=== PATIENT | male | born 1955 | race Caucasian/White ===

== ENCOUNTER → 2023-12-02 07:52 | Outpatient (REF) | payer OTHER, SELFPAY | LOC: RCS 07:52 | PROVIDERS: ATTENDING PHYSICIAN Nuclear Medicine Nuclear Cardiology; FAMILY PHYSICIAN Family Medicine | DX: R94.31 Abnormal electrocardiogram [ECG] [EKG] (principal); R07.9 Chest pain, unspecified; R06.02 Shortness of breath; R42 Dizziness and giddiness; Z82.49 Family history of ischemic heart disease and other diseases of the circulatory system; E78.5 Hyperlipidemia, unspecified | CPT/HCPCS: 93306 ==

== ENCOUNTER 2024-09-06 22:59 | Inpatient (IN) | payer OTHER, SELFPAY ==
[2024-09-06 15:28] VITALS: BP 188/101
--- NOTE | 2024-09-06 15:32 | ED.GENMED ---
ED Provider Triage
<Kaushal Bautista PA-C - Last Filed: 09/06/24 15:34>
-
Patient seen by provider in Triage?: Seen in Triage
Attestation: A medical screening examination has been initiated by a qualified medical provider. Based on the assessment performed at this time, it has been determined that an emergent medical condition may exist and the patient has been informed
that further medical evaluation and possible additional diagnostic testing may be needed.
HPI: 69-year-old male presenting to the emergency department for evaluation of elevated blood pressure, lower abdominal discomfort and lightheadedness that has been ongoing for the last 1 to 2 weeks, acutely worse over the last few days.
brought patient to the ER for further evaluation today. Patient does admit to some medication noncompliance because he said his antihypertensive regimen seem to drop his blood pressure a little too low and would get symptomatic from this.
Patient's blood pressure in triage 188/101. Brought back for stat EKG. Abdominal labs and troponin ordered for further evaluation.
GENERAL: Alert , in no apparent distress
EYE: No visual abnormalities.
NECK: Trachea midline
ENT: No visible abnormalities.
LUNGS: No acute respiratory distress
NEUROLOGICAL: Alert and oriented
SKIN: Skin intact. No visible changes.
MUSCULOSKELETAL: Moving extremities normally
PSYCH: Normal and appropriate interaction.
This is a medical evaluation conducted in person to initiate diagnostic evaluation and provide initial therapeutics. Please see further documentation by the treating clinician.
History of Present Illness
<Kaushal Bautista PA-C - Last Filed: 09/06/24 15:34>
General
Chief Complaint: Blood Pressure Problem
Time Seen by Provider: 09/06/24 18:43
<Marie Gonzalez MD, Resident - Last Filed: 09/06/24 20:18>
History of Present Illness
History of Present Illness:
69 y/o male with past medical history of hypertension, and BPH presenting with elevated blood pressures (in the 190s), lightheadedness and dizziness upon standing. Pt also complains of mid lower abdominal pain. Has difficulty urinating but notes
improved urinary flow with alfuzosin. Also notes decreased bowel movements in the past few days. Denies fever, chills, chest pain, nausea/vomiting. Pt has not been compliant with his antihypertensive medication, restarted taking his medication about
3 weeks ago after he noticed his high blood pressures at home.
Last colonoscopy 2021 showed polyps which were biopsied. Pathology revealed tubular adenoma.
Past History
<Kaushal Bautista PA-C - Last Filed: 09/06/24 15:34>
Past History
ED Past Medical History: HTN
ED Past Surgical History: None
Social History
Tobacco: Former smoker
<Marie Gonzalez MD, Resident - Last Filed: 09/06/24 20:18>
Past History
ED Past Medical History: Other (pancreatic mass on MRI abdomen, umbilical hernia)
Social History
Tobacco: Non-smoker
Review of Systems
<Marie Gonzalez MD, Resident - Last Filed: 09/06/24 20:18>
Review of Systems
EENT: Reports no symptoms
Respiratory: Reports no symptoms
Cardiac: Reports no symptoms
ABD/GI: Reports abdominal pain
: Reports difficulty voiding
Musculoskeletal: Reports no symptoms
Skin: Reports no symptoms
Neurological: Reports dizzy
Endocrine: Reports no symptoms
Hematologic/Lymphatic: Reports no symptoms
Psychiatric: Reports no symptoms
Phy Exam
<Marie Gonzalez MD, Resident - Last Filed: 09/06/24 20:18>
Physical Exam
Physical Exam:
GENERAL: Alert, in no apparent distress
EYE: pupils equal and reactive
NECK: Supple, no significant adenopathy.
ENT: o/p clr, mmm.
CARDIAC: Regular rate and rhythm.
LUNGS: Clear breath sounds bilaterally, no acute respiratory distress, no wheezes/rales/rhonchi
ABDOMEN: Soft, mid lower abdominal tenderness, no r/g, no cvat
NEUROLOGICAL: no focal neuro deficits
SKIN: Warm and dry, skin intact.
MUSCULOSKELETAL: No edema, well perfused.
PSYCH: Normal and appropriate interaction.
Course
<Kaushal Bautista PA-C - Last Filed: 09/06/24 15:34>
Orders/Labs/Results
Orders:
Orders
09/06/24 15:31
Electrocardiogram (*1) Urgent
Reason for Study: Abdominal Pain
EKG- Treatment ONCE
09/06/24 15:42
Complete Blood Count/With Diff Urgent
Comprehensive Metabolic Panel Urgent
Troponin I Urgent
09/06/24 19:50
CR Chest - 2 Views Urgent
Comment:
Reason For Exam: arf
09/06/24 19:51
CT Abd/pel Without Iv Or Oral Urgent
Comment:
Reason For Exam: arf
Bladder Scan- Treatment ONCE
09/06/24 20:23
Gee Placement- Treatment ONCE
Reason for insertion: Acute Retention
09/06/24 22:25
Lidocaine 2% [Lidocaine Uro-Jet 2%] 1 syringe TOPICAL NOW STA
Gee Catheter [Catheter- Indwelling] As Directed
Reason for insertion: Acute Retention
Type: 3 way
Discontinue Date/Time: 09/09/24 0600
09/06/24 22:45
Admit/Transfer Patient As Directed
Co-Sign Provider:
Level of Care: Inpatient admission
Assign to:: Telemetry
Physician / Group: Surya
Diagnosis: Urinary Retention, GISELL
Reason for Telemetry: Arrhythmia
Date to Stop Telemetry: 09/09/24
Time to Stop Telemetry: 11:00
Reason for Hospitalization: Urinary Retention, GISELL
Expected length of stay greater than two midnights?: Yes
ELOS- Estimated Length of Stay in days: 3
I certify the patient meets the requirements for IP care: Yes
PRN Pain Medication Management As Directed
May give lesser potent ordered pain med per pt: Yes
preference::
Protocol:: Medication orders for pain may be administered in a
manner that supports deferring to patient preference
when the pt is:
- Requesting an ordered lesser potent pain medication.
Least to most potent pain medications are defined
as: acetaminophen < NSAID < tramadol < opioids
(morphine, oxycodone, hydromorphone).
- Requesting a lesser dose of the same medication IF
ORDERED.
- Requesting a less intrusive route of administration
if both routes are prescribed by the provider (PO <
IV).
09/06/24 22:46
Code Status As Directed
Resuscitation Status: Full Code
09/07/24 00:37
HYDROmorphone [Dilaudid] 0.5 mg IV Q4HPRN PRN
09/07/24 01:11
Acetaminophen [Tylenol] 650 mg PO Q4HPRN PRN
Lactated Ringers [Lr] 1,000 ml IV 100 mls/hr
Ondansetron Injectable [Zofran] 4 mg IV Q6HPRN PRN
09/07/24 01:11
UROLOGY CONSULT Routine
Consulting Provider: Vasquez Toro Jr.
Was physician already notified: Yes
Comment: Urinary Retention / BPH
Activity As Directed
Activity Level: Ambulate
I/O [Intake/ Output] As Directed
Frequency: Per unit guidelines
Pneumatic Compression Sleeves As Directed
Type: Knee high
Vital Signs As Directed
Frequency: Per unit guidelines
Oxygen Therapy [O2 Therapy] [RESP] Routine
Titrate/Wean O2 to maintain O2 sat greater than (%): 94
DX Deep Vein Thrombosis Video Routine
09/07/24 02:03
Urinalysis Reflex To Culture Urgent
Date Specimen was Collected: 09/07/24
Time Specimen was Collected: 02:02
09/07/24 Breakfast
Regular
At Your Request: Full Participation
09/07/24 06:55
Basic Metabolic Panel IN AM
Complete Blood Count/No Diff IN AM
09/07/24 08:00
Amlodipine [Norvasc] 5 mg PO DAILY
Tamsulosin [Flomax] 0.4 mg PO BID
09/09/24 11:00
DC Protocol for Telemetry ONCE
Abnormal Lab Results
09/06/24
15:42
MPV 11.6 H fL
(7.4-10.4)
BUN 32 H mg/dl
(9-20)
Creatinine 2.0 H mg/dL
(0.7-1.3)
Glucose 117 H mg/dl
(70-99)
Albumin 5.1 H g/dl
(3.5-5.0)
09/06/24 15:42
09/06/24 15:42
Vital Signs
Initial and Last Documented VS:
Initial Vital Signs
Temp Pulse Resp BP Pulse Ox
98.1 F 77 18 188/101 99
09/06/24 15:28 09/06/24 15:28 09/06/24 15:28 09/06/24 15:28 09/06/24 15:28
Last Documented Vital Signs
Temp Pulse Resp BP Pulse Ox
99.2 F 80 16 169/79 98
09/07/24 08:18 09/07/24 08:18 09/07/24 08:18 09/07/24 08:18 09/07/24 08:18
<Marie Gonzalez MD, Resident - Last Filed: 09/06/24 20:18>
Orders/Labs/Results
Orders:
Orders
09/06/24 15:31
Electrocardiogram (*1) Urgent
Reason for Study: Abdominal Pain
EKG- Treatment ONCE
09/06/24 15:42
Complete Blood Count/With Diff Urgent
Comprehensive Metabolic Panel Urgent
Troponin I Urgent
09/06/24 19:50
CR Chest - 2 Views Urgent
Comment:
Reason For Exam: arf
09/06/24 19:51
CT Abd/pel Without Iv Or Oral Urgent
Comment:
Reason For Exam: arf
Bladder Scan- Treatment ONCE
09/06/24 20:23
Gee Placement- Treatment ONCE
Reason for insertion: Acute Retention
09/06/24 22:25
Lidocaine 2% [Lidocaine Uro-Jet 2%] 1 syringe TOPICAL NOW STA
Gee Catheter [Catheter- Indwelling] As Directed
Reason for insertion: Acute Retention
Type: 3 way
Discontinue Date/Time: 09/09/24 0600
09/06/24 22:45
Admit/Transfer Patient As Directed
Co-Sign Provider:
Level of Care: Inpatient admission
Assign to:: Telemetry
Physician / Group: Surya
Diagnosis: Urinary Retention, GISELL
Reason for Telemetry: Arrhythmia
Date to Stop Telemetry: 09/09/24
Time to Stop Telemetry: 11:00
Reason for Hospitalization: Urinary Retention, GISELL
Expected length of stay greater than two midnights?: Yes
ELOS- Estimated Length of Stay in days: 3
I certify the patient meets the requirements for IP care: Yes
PRN Pain Medication Management As Directed
May give lesser potent ordered pain med per pt: Yes
preference::
Protocol:: Medication orders for pain may be administered in a
manner that supports deferring to patient preference
when the pt is:
- Requesting an ordered lesser potent pain medication.
Least to most potent pain medications are defined
as: acetaminophen < NSAID < tramadol < opioids
(morphine, oxycodone, hydromorphone).
- Requesting a lesser dose of the same medication IF
ORDERED.
- Requesting a less intrusive route of administration
if both routes are prescribed by the provider (PO <
IV).
09/06/24 22:46
Code Status As Directed
Resuscitation Status: Full Code
09/07/24 00:37
HYDROmorphone [Dilaudid] 0.5 mg IV Q4HPRN PRN
09/07/24 01:11
Acetaminophen [Tylenol] 650 mg PO Q4HPRN PRN
Lactated Ringers [Lr] 1,000 ml IV 100 mls/hr
Ondansetron Injectable [Zofran] 4 mg IV Q6HPRN PRN
09/07/24 01:11
UROLOGY CONSULT Routine
Consulting Provider: Vasquez Toro Jr.
Was physician already notified: Yes
Comment: Urinary Retention / BPH
Activity As Directed
Activity Level: Ambulate
I/O [Intake/ Output] As Directed
Frequency: Per unit guidelines
Pneumatic Compression Sleeves As Directed
Type: Knee high
Vital Signs As Directed
Frequency: Per unit guidelines
Oxygen Therapy [O2 Therapy] [RESP] Routine
Titrate/Wean O2 to maintain O2 sat greater than (%): 94
DX Deep Vein Thrombosis Video Routine
09/07/24 02:03
Urinalysis Reflex To Culture Urgent
Date Specimen was Collected: 09/07/24
Time Specimen was Collected: 02:02
09/07/24 Breakfast
Regular
At Your Request: Full Participation
09/07/24 06:55
Basic Metabolic Panel IN AM
Complete Blood Count/No Diff IN AM
09/07/24 08:00
Amlodipine [Norvasc] 5 mg PO DAILY
Tamsulosin [Flomax] 0.4 mg PO BID
09/09/24 11:00
DC Protocol for Telemetry ONCE
Abnormal Lab Results
09/06/24
15:42
MPV 11.6 H fL
(7.4-10.4)
BUN 32 H mg/dl
(9-20)
Creatinine 2.0 H mg/dL
(0.7-1.3)
Glucose 117 H mg/dl
(70-99)
Albumin 5.1 H g/dl
(3.5-5.0)
09/06/24 15:42
09/06/24 15:42
Vital Signs
Initial and Last Documented VS:
Initial Vital Signs
Temp Pulse Resp BP Pulse Ox
98.1 F 77 18 188/101 99
09/06/24 15:28 09/06/24 15:28 09/06/24 15:28 09/06/24 15:28 09/06/24 15:28
Last Documented Vital Signs
Temp Pulse Resp BP Pulse Ox
99.2 F 80 16 169/79 98
09/07/24 08:18 09/07/24 08:18 09/07/24 08:18 09/07/24 08:18 09/07/24 08:18
<Anam Key, DO - Last Filed: 09/07/24 15:11>
Orders/Labs/Results
Orders:
Orders
09/06/24 15:31
Electrocardiogram (*1) Urgent
Reason for Study: Abdominal Pain
EKG- Treatment ONCE
09/06/24 15:42
Complete Blood Count/With Diff Urgent
Comprehensive Metabolic Panel Urgent
Troponin I Urgent
09/06/24 19:50
CR Chest - 2 Views Urgent
Comment:
Reason For Exam: arf
09/06/24 19:51
CT Abd/pel Without Iv Or Oral Urgent
Comment:
Reason For Exam: arf
Bladder Scan- Treatment ONCE
09/06/24 20:23
Gee Placement- Treatment ONCE
Reason for insertion: Acute Retention
09/06/24 22:25
Lidocaine 2% [Lidocaine Uro-Jet 2%] 1 syringe TOPICAL NOW STA
Gee Catheter [Catheter- Indwelling] As Directed
Reason for insertion: Acute Retention
Type: 3 way
Discontinue Date/Time: 09/09/24 0600
09/06/24 22:45
Admit/Transfer Patient As Directed
Co-Sign Provider:
Level of Care: Inpatient admission
Assign to:: Telemetry
Physician / Group: Surya
Diagnosis: Urinary Retention, GISLEL
Reason for Telemetry: Arrhythmia
Date to Stop Telemetry: 09/09/24
Time to Stop Telemetry: 11:00
Reason for Hospitalization: Urinary Retention, GISELL
Expected length of stay greater than two midnights?: Yes
ELOS- Estimated Length of Stay in days: 3
I certify the patient meets the requirements for IP care: Yes
PRN Pain Medication Management As Directed
May give lesser potent ordered pain med per pt: Yes
preference::
Protocol:: Medication orders for pain may be administered in a
manner that supports deferring to patient preference
when the pt is:
- Requesting an ordered lesser potent pain medication.
Least to most potent pain medications are defined
as: acetaminophen < NSAID < tramadol < opioids
(morphine, oxycodone, hydromorphone).
- Requesting a lesser dose of the same medication IF
ORDERED.
- Requesting a less intrusive route of administration
if both routes are prescribed by the provider (PO <
IV).
09/06/24 22:46
Code Status As Directed
Resuscitation Status: Full Code
09/07/24 00:37
HYDROmorphone [Dilaudid] 0.5 mg IV Q4HPRN PRN
09/07/24 01:11
Acetaminophen [Tylenol] 650 mg PO Q4HPRN PRN
Lactated Ringers [Lr] 1,000 ml IV 100 mls/hr
Ondansetron Injectable [Zofran] 4 mg IV Q6HPRN PRN
09/07/24 01:11
UROLOGY CONSULT Routine
Consulting Provider: Vasquez Toro Jr.
Was physician already notified: Yes
Comment: Urinary Retention / BPH
Activity As Directed
Activity Level: Ambulate
I/O [Intake/ Output] As Directed
Frequency: Per unit guidelines
Pneumatic Compression Sleeves As Directed
Type: Knee high
Vital Signs As Directed
Frequency: Per unit guidelines
Oxygen Therapy [O2 Therapy] [RESP] Routine
Titrate/Wean O2 to maintain O2 sat greater than (%): 94
DX Deep Vein Thrombosis Video Routine
09/07/24 02:03
Urinalysis Reflex To Culture Urgent
Date Specimen was Collected: 09/07/24
Time Specimen was Collected: 02:02
09/07/24 Breakfast
Regular
At Your Request: Full Participation
09/07/24 06:55
Basic Metabolic Panel IN AM
Complete Blood Count/No Diff IN AM
09/07/24 08:00
Amlodipine [Norvasc] 5 mg PO DAILY
Tamsulosin [Flomax] 0.4 mg PO BID
09/09/24 11:00
DC Protocol for Telemetry ONCE
Abnormal Lab Results
09/06/24
15:42
MPV 11.6 H fL
(7.4-10.4)
BUN 32 H mg/dl
(9-20)
Creatinine 2.0 H mg/dL
(0.7-1.3)
Glucose 117 H mg/dl
(70-99)
Albumin 5.1 H g/dl
(3.5-5.0)
09/06/24 15:42
09/06/24 15:42
Vital Signs
Initial and Last Documented VS:
Initial Vital Signs
Temp Pulse Resp BP Pulse Ox
98.1 F 77 18 188/101 99
09/06/24 15:28 09/06/24 15:28 09/06/24 15:28 09/06/24 15:28 09/06/24 15:28
Last Documented Vital Signs
Temp Pulse Resp BP Pulse Ox
99.2 F 80 16 169/79 98
09/07/24 08:18 09/07/24 08:18 09/07/24 08:18 09/07/24 08:18 09/07/24 08:18
<Marie Gonzalez MD, Resident - Last Filed: 09/06/24 20:18>
MDM/Problems Addressed
Differential Diagnosis Includes:
Urinary retention, bladder outlet obstruction
Nephrolithiasis
NM
Bowel obstruction
Hypertensive urgency
MDM/Problems Addressed:
69 y/o m with past medical history of HTN and BPH presenting with elevated blood pressures and abdominal pain.
# Lower abdominal pain
- Urinary distension on physical exam
- Cr elevated (2.0), unknown whether acute or chronic
- EKG shows ST changes in anterolateral leads, no symptoms
- Troponin x1 negative
- Chest x-ray
- Bladder scan
- Abdomen pelvis CT scan
# Hypertension
- Likely multifactorial in the setting of pain, noncompliance, obstructive nephropathy
- Wait for bladder scan
Chronic conditions affecting care:
Hypertension
<Marie Gonzalez MD, Resident - Last Filed: 09/06/24 20:18>
*Critical Care Note
Total Time (30-74mins, 75-104mins- exclusive of procedures): Not Applicable
<Anam Key DO - Last Filed: 09/07/24 15:11>
Update Note
Update Note:
Bladder Scan---800, voided--[address]
ED Attending Note
<Kaushal Bautista PA-C - Last Filed: 09/06/24 15:34>
-
Portions of this chart may have been created with voice recognition software.� Occasional wrong word or��sound alike� substitutions may have occurred due to the inherent limitations of voice recognition software.
<Anam Key, - Last Filed: 09/07/24 15:11>
ED Attending Note
Patient seen and examined by attending physician: Yes
I performed a history and physical exam of patient and discussed management with resident, I reviewed resident's note and agree with documented findings and plan of care.: Yes
ED Attending Note:
Seen with resident examined independent 69-year-old male history of hypertension over the summer was not feeling well took himself off his meds, restarted few months ago, now has trouble urinating urinary frequency cannot empty his bladder abdominal
cramping, bladder scan noted Gee placed labs are noted EKG is noted troponin noted CT scan is pending
Discharge Plan
Departure
Patient Disposition: Admit
Date of Disposition: 09/06/24
Time of Disposition: 21:46
Admit to: Med/Surg
Presentation/result/management discussed w/ accepting MD/DO: Hospitalist
Patient with high blood pressure during this ER visit?: Yes
Condition: Fair
Discharge Problem:
Acute renal failure (ARF)
Interventions
Interventions:
*Risk Screen - Suicide Last Done: 09/06/24 15:28
*General Assessment Last Done: 09/06/24 15:28
ED- Fall Risk Assessment Last Done: 09/07/24 00:58
*ED COVID-19 Vaccine History Last Done: 09/06/24 15:28
*Nursing Disposition Last Done: 09/07/24 00:58
Discharge Date and Time
Discharge Date/Time: 09/07/24 01:06
[2024-09-06 15:57] LABS: % Basophils 0.7 % (0-2); % Eosinophils 1.6 % (0-6); % Immature Granulocytes 0.1 % (0-0.5); % Lymphocytes 25.7 % (20.5-51.1); % Monocytes 7.6 % (1.7-9.3); % Neutrophils 64.3 % (42.2-75.2); Absolute Basophils 0.1 10^3/uL (0-0.2); Absolute Eosinophils 0.1 10^3/uL (0-0.7); Absolute Lymphocytes 1.8 10^3/uL (1.2-3.4); Absolute Monocytes 0.5 10^3/uL (0.1-0.6); Absolute Neutrophils 4.4 10^3/uL (1.4-6.5); Hematocrit 44.7 % (39.0-52.0); Hemoglobin 14.8 g/dL (13.0-18.0); Mean Corp Hgb Conc. 33.1 g/dL (33.0-37.0); Mean Corpuscular Hgb 30.3 pg (27.0-31.0); Mean Corpuscular Volume 91.4 fL (80.0-94.0); Mean Platelet Volume 11.6 fL (7.4-10.4); Nucleated Red Blood Cells % 0 % (-); Platelet Count 163 10^3/uL (130-400); Red Blood Cell Count 4.89 10^6/uL (4.70-6.10); Red Cell Dist. Width 12.6 % (11.5-14.5); White Blood Cell Count 6.8 10^3/uL (4.8-10.8)
[2024-09-06 16:11] LABS: ALT (SGPT) 27 U/L (0-50); AST (SGOT) 28 U/L (17-59); Albumin 5.1 g/dl (3.5-5.0); Alkaline Phosphatase 83 U/L (38-126); Blood Urea Nitrogen 32 mg/dl (9-20); Calcium 9.7 mg/dl (8.4-10.2); Carbon Dioxide 26 mmol/L (22-30); Chloride 100 mmol/L (98-107); Glucose 117 mg/dl (70-99); Potassium 4.1 mmol/L (3.5-5.1); Sodium 143 mmol/L (135-145); Total Bilirubin 0.8 mg/dl (0.2-1.3); Total Protein 8.2 g/dl (6.3-8.2); eGFR 35.91
[2024-09-06 16:17] LABS: Troponin I < 0.012 ng/ml
[2024-09-06 18:30] VITALS: BP 190/99
[2024-09-06 21:23] VITALS: BP 157/77
[2024-09-06 21:25] VITALS: BP 157/77
[2024-09-06 22:00] VITALS: BP 174/88
--- NOTE | 2024-09-06 22:31 | HPS.HSE ---
Family Physician
-
Family Physician: Tal Encarnacion
Chief Complaint
-
Abd Pain / Hypertension
History of Present Illness
Patient is a 69y M with PMH significant for hypertension and BPH who presents to ED complaining of lower abdominal discomfort, difficulty urinating and high blood pressure. Patient states that he stopped taking his usual meds for BP and BPH over
the summer. He complained of feeling lightheaded and dyspneic with activity on these medications (Afluzosin and Dyazide). He did well for a time but then began to have difficulty with urination. He states that he had to 'push' to urinate and
complained of burning at times with urination. He began taking an OTC 'prostate vitamin' with some improvement in these symptoms.
However, over the past 3 weeks patient has noted worsening lower abdominal discomfort, increased difficulty passing urine and now notes that his BP at home has been elevated - consistently 170-180 systolic.
Patient started taking both Rx medications within the past few weeks - but with no improvement in his BP, pain or urination.
He does note that he has again began to feel lightheaded at times.
Patient denies any fevers / chills. No constipation. he has had intermittent nausea without emesis.
He denies any hematuria or flank pain.
Medical History
Past Medical History
Past Medical History: Reports Other
Additional Past Medical History:
Hypertension
BPH
Past Surgical History: Reports Other
Additional Past Surgical History:
Cutaneous Cyst Excision
Social History
Tobacco: Former Smoker (Quit smoking 25 years ago.)
Alcohol: None
Drug: None
Personal:
Living: With Family
Family History
Family History: Other (Father: Longevity, CAD Mother: Rheumatic Fever / CHF)
Allergies / Home Medications
Allergies reflects when Allergies were last updated in [facility].
Home Medications with original date entered in [facility]
Allergy/Medication List:
Allergies
Allergy/AdvReac Type Severity Reaction Status Date / Time
No Known Allergies Allergy Verified 09/06/24 15:33
Home Medications
alfuzosin 10 mg tablet,extended release 24 hr 10 mg PO NOON 08/20/19
triamterene 37.5 mg-hydrochlorothiazide 25 mg tablet 1 tab PO DAILY 09/06/24
Review of Systems
-
History Source: Patient
A 12 point ROS was completed and negative except as noted: Yes
Constitutional: Denies Fever, Fatigue or Chills
Respiratory: Reports Trouble Breathing (dyspnea with activity at times.); Denies Cough
Cardiac: Denies Chest Pain or Palpitations
Abdomen/GI: Reports Abdominal Pain and Nausea; Denies Vomiting, Diarrhea, Constipated, Bloody Stools or Anorexia
: Reports Dysuria and Difficulty Voiding; Denies Flank Pain, Incontinence or Bleeding
Musculoskeletal: Denies Joint Pain or Edema
Neurological: Reports Dizzy; Denies Headache
Psych: Denies Depression or Anxiety
Physical Exam
Vital Signs
Vital Signs
Temp Pulse Resp BP Pulse Ox
98.0 F 67 16 157/77 97
09/06/24 20:13 09/06/24 22:00 09/06/24 21:15 09/06/24 21:25 09/06/24 22:00
Physical Exam
General: Other (69y M in no acute distress.)
HEENT: Moist mucous membranes and PERRLA
Respiratory: Clear; No Wheezes, Rales or Rhonchi
Cardiac: S1/S2 and Regular Rhythm; No Murmur
GI: Soft, Non Distended and Normal Bowel Sounds
Genito-urinary: Other (Suprapubic tenderness. No CVAT. Benitez in place at present.)
Musculoskeletal: No Clubbing, No Cyanosis and No Edema
Neuro: AO x 3
Laboratory Results
-
09/06/24 15:42
09/06/24 15:42
Laboratory Results
Total Bilirubin 0.8 mg/dl (0.2-1.3) 09/06/24 15:42
AST 28 U/L (17-59) 09/06/24 15:42
ALT 27 U/L (0-50) 09/06/24 15:42
Alkaline Phosphatase 83 U/L (38-126) 09/06/24 15:42
Troponin I < 0.012 ng/ml 09/06/24 15:42
Impression/Plan
-
A/P: Patient is a 69y M with PMH significant for hypertension and BPH who presents to ED complaining of lower abdominal discomfort, difficulty with urination and elevated BP.
Urinary Retention - Likely Subacute / Chronic
GISELL secondary to the above
BPH
- Admit for further evaluation and treatment.
- Benitez placed in the ED with only 675cc out and very little catheter external.
- Balloon deflated and catheter pulled back resulting in grossly bloody urine return.
- Will replace current catheter with 3-way Benitez (does not seem in correct position in any event).
- Monitor urine output and begin CBI if needed for clots / gross hematuria.
- Tamsulosin BID for now.
- Urology evaluation for further recommendations.
- SCr = 2.0 compared to baseline of 1.0.
- Follow SCr for improvement with IVFs and relief of post-renal obstruction.
Benign Hypertension
- BP currently elevated - likely due to combination of non-compliance with meds and acute discomfort.
- Hold Dyazide for now noting prior issues with adverse effects, etc.
- Will begin amlodipine and titrate as needed for improved BP control.
- Follow for improvement with alleviation of urinary obstruction as well.
DVT Prophylaxis: SCDs
Code Status: Full
[2024-09-06] MEDS: LIDOCAINE URO-JET 2% 1 SYRINGE TOPICAL (22:55)
--- NOTE | 2024-09-06 23:37 | EDRN ---
Per verbal order of Dr. London remove gee catheter and insert a 3 way catheter in case patient needs to have bladder irrigation.
[2024-09-07] VITALS (7 sets, daily range): BP systolic 141–169; BP diastolic 71–105; BMI 29.2
[2024-09-07] MEDS: LR 1000 IV ×3 (01:27→21:23)
[2024-09-07] MEDS: DILAUDID 0.25 MG IV (01:44)
[2024-09-07 02:13] LABS: Urine Albumin 3+ (Neg - Trace); Urine Bilirubin Negative (Negative); Urine Color Red; Urine Glucose Negative (Negative); Urine Ketone Trace (Negative); Urine Leukocyte Trace (Negative); Urine Nitrite Positive (Negative); Urine Occult Blood 4+ (Negative); Urine Urobilinogen Negative (Neg - 1+)
[2024-09-07 02:14] LABS: Urine Character Cloudy (Clear)
[2024-09-07 02:25] LABS: Urine Amorphous Seen; Urine Red Blood Cell >100 /HPF (0-2); Urine Squamous Cell SEEN /LPF (Few)
[2024-09-07] MEDS: TYLENOL 650 MG PO (06:14)
--- NOTE | 2024-09-07 06:28 | CON.MD ---
Consultation - Medical
-
see dictated note
pt with long hx of voiding dysfunction- no prior gu eval
psa in 2021-
was on uroxatrol- stopped over the summer- ? causing dizziness
presented last pm with abd pain/light headed
cr-2.0
ct showed sig bph/distended bladder and hydro
gee placed- drained almost a liter- became bloody- 3 way placed- urine pink this am
pt c/o of bladder and penile pain
plan
continue gee
hold any blood thinners given hematuria
flomax and proscar
track cr level
eventual discharge with gee and VN
will follow
[2024-09-07] MEDS: DETROL LA 4 MG PO (06:36)
[2024-09-07 07:21] LABS: Hematocrit 39.8 % (39.0-52.0); Hemoglobin 13.3 g/dL (13.0-18.0); Mean Corp Hgb Conc. 33.4 g/dL (33.0-37.0); Mean Corpuscular Volume 89.8 fL (80.0-94.0); Mean Platelet Volume 11.8 fL (7.4-10.4); Platelet Count 150 10^3/uL (130-400); Red Blood Cell Count 4.43 10^6/uL (4.70-6.10); Red Cell Dist. Width 12.5 % (11.5-14.5); White Blood Cell Count 10.6 10^3/uL (4.8-10.8)
[2024-09-07 07:47] LABS: Blood Urea Nitrogen 29 mg/dl (9-20); Carbon Dioxide 25 mmol/L (22-30); Chloride 99 mmol/L (98-107); Estimated Creatinine Clearance 44 ml/min; Glucose 120 mg/dl (70-99); Potassium 4.3 mmol/L (3.5-5.1); Sodium 137 mmol/L (135-145); eGFR 43.64
[2024-09-07] MEDS: FLOMAX 0.4 MG PO ×2 (08:11→19:55)
[2024-09-07] MEDS: PROSCAR 5 MG PO (08:11)
[2024-09-07] MEDS: NORVASC 5 MG PO (08:11)
--- NOTE | 2024-09-07 08:17 | W.PN.HOSP.TC ---
Today's Communication/Plan
-
Renal function improving
Monitor Hgb and for resolution of hematuria
Assessment / Plan
Assessment / Plan
Physical Exam
General: Not in acute distress
HEENT: Moist mucous membranes
Respiratory: Clear to Auscultation Bilaterally
Cardiac: S1/S2 and Regular Rhythm
GI: Soft, Non Distended and Normal Bowel Sounds
Genito-urinary: Other (Suprapubic tenderness. No CVA tenderness. Benitez in place at present.)
Musculoskeletal: No Cyanosis and No Edema
Neuro: AO x 3
Assessment/Plan
Patient is a 69y M with PMH significant for hypertension and BPH who presents to ED complaining of lower abdominal discomfort, difficulty with urination and elevated BP.
Urinary Retention - Likely Subacute / Chronic
GISELL secondary to the above
BPH
- Benitez placed in the ED with only 675cc out and very little catheter external.
- Balloon deflated and catheter pulled back resulting in grossly bloody urine return.
- Flomax started, and Proscar added.
- Urology evaluation for further recommendations.
- SCr = 2.0->1.7 compared to baseline of 1.0.
- Per urology, once patient's hematuria clears and his renal function stabilizes, he should be discharged with his catheter and Flomax and Proscar for outpatient voiding trial and evaluation.
- Follow SCr for improvement with IVFs and relief of post-renal obstruction.
- Hold ALL blood thinners for now, as per urology
Benign Hypertension
- BP currently elevated - likely due to combination of non-compliance with meds and acute discomfort.
- Hold Dyazide for now noting prior issues with adverse effects, etc.
- Amlodipine started as new medication this admission, titrate as needed for improved BP control.
- Follow for improvement with alleviation of urinary obstruction as well.
DVT Prophylaxis: SCDs. No chemical DVT prophylaxis as per urology.
Code Status: Full Code
Anticipated Discharge: 24 - 48 hours
Subjective/Interval History
-
Date of Service: September 07, 2024
Patient was seen and examined. He reported his symptoms have improved significantly compared to when he came in. His abdominal pain is less.
Objective Data
-
Labs:
Laboratory Results
09/07/24
06:55
WBC 10.6
Hgb 13.3
Hct 39.8
Plt Count 150
Sodium 137
Potassium 4.3
Chloride 99
Carbon Dioxide 25
BUN 29 H
Creatinine 1.7 H
Glucose 120 H
Calcium 9.0
Vital Signs:
Vital Signs
Temp Pulse Resp BP Pulse Ox
98.5 F 74 16 151/73 98
09/07/24 03:17 09/07/24 03:17 09/07/24 03:17 09/07/24 03:17 09/07/24 03:17
I&O
09/06/24 09/07/24 09/08/24
06:59 06:59 06:59
Intake Total 340 / 340
Output Total 1250 / 1250
Balance -910 / -910
--- NOTE | 2024-09-07 14:30 | VNURNOTE ---
Home Health Liaison met with patient at bedside to discuss [facility] nurse/therapy, visits, schedule and homebound status. Patient is agreeable and understands that visits at home will be 2-3 x per week to assess and teach gee medical management.
[facility] brochure provided with contact information. Patient is aware that [facility] will contact them for start of care in 1-2 days after discharge from .
[facility] referral completed in [facility].
[2024-09-08 03:48] VITALS: BP 131/73
[2024-09-08 07:38] VITALS: BP 143/68
[2024-09-08] MEDS: LR 1000 IV (07:52)
[2024-09-08] MEDS: FLOMAX 0.4 MG PO (07:53)
[2024-09-08] MEDS: PROSCAR 5 MG PO (07:53)
[2024-09-08] MEDS: NORVASC 5 MG PO (07:53)
[2024-09-08 08:05] LABS: Hemoglobin 13.5 g/dL (13.0-18.0); Mean Corp Hgb Conc. 33.8 g/dL (33.0-37.0); Mean Corpuscular Hgb 30.5 pg (27.0-31.0); Mean Corpuscular Volume 90.5 fL (80.0-94.0); Mean Platelet Volume 11.7 fL (7.4-10.4); Platelet Count 148 10^3/uL (130-400); Red Blood Cell Count 4.42 10^6/uL (4.70-6.10); Red Cell Dist. Width 12.6 % (11.5-14.5); White Blood Cell Count 8.3 10^3/uL (4.8-10.8)
--- NOTE | 2024-09-08 08:13 | W.PN.URO.CBU ---
Today's Communication / Plan
-
leg bag teaching
discharge if cr improved
Assessment / Plan
-
BPH
urinary retention
ARF
hematuria
pt looks well
urine clear
tolerating gee better
am cr pending
if cr shows decline today- ok from my standpoint for discharge with gee/leg bag teaching and VN
he should resume his outpt alfuzosin and be sent out with proscar 5mg po qday
VN has been arranged
he should contact dr chan's office at the time of discharge to schedule outpt f/u
Diagnosis
-
Date of Service: September 08, 2024
-
Patient Diagnosis:
BPH
urinary retention
ARF
hematuria
Subjective
-
pt feels better
still some cath bother but improved
urine clear
am cr level pending
Objective
-
Vital Signs
Temp Pulse Resp BP Pulse Ox
98 F 71 16 143/68 96
09/08/24 07:38 09/08/24 07:38 09/08/24 07:38 09/08/24 07:38 09/08/24 07:38
Intake and Output
09/07/24 09/08/24 09/09/24
06:59 06:59 06:59
Intake Total 340 / 340 2380 / 2380
Output Total 1250 / 1250 3900 / 3900
Balance -910 / -910 -1520 / -1520
Intake:
Oral fluids 1280 / 1280
IV fluids (Total) 340 / 340 1100 / 1100
Output:
Urine, Gee 1250 / 1250 3900 / 3900
Laboratory Results
09/08/24 07:51
Review of Systems
-
Constitutional: Fatigue
Respiratory: No Symptoms
Cardiac: No Symptoms
Abdomen/GI: No Symptoms
Physical Exam
-
General - no acute distress
Abdomen - soft, non-tender
Genitalia - normal- gee in place- urine clear
[2024-09-08 08:16] LABS: Blood Urea Nitrogen 26 mg/dl (9-20); Calcium 8.9 mg/dl (8.4-10.2); Carbon Dioxide 28 mmol/L (22-30); Chloride 101 mmol/L (98-107); Estimated Creatinine Clearance 49 ml/min; Glucose 119 mg/dl (70-99); Potassium 3.8 mmol/L (3.5-5.1); Sodium 139 mmol/L (135-145); eGFR 50.71
--- NOTE | 2024-09-08 10:33 | W.PN.HOSP.TC ---
Today's Communication/Plan
-
Discharge today
Assessment / Plan
Assessment / Plan
Physical Exam
General: Not in acute distress
HEENT: Moist mucous membranes
Respiratory: Clear to Auscultation Bilaterally
Cardiac: S1/S2 and Regular Rhythm
GI: Soft, Non Distended and Normal Bowel Sounds
Genito-urinary: Other (Suprapubic tenderness. No CVA tenderness. Benitez in place at present.)
Musculoskeletal: No Cyanosis and No Edema
Neuro: AO x 3
Assessment/Plan
Patient is a 69y M with PMH significant for hypertension and BPH who presents to ED complaining of lower abdominal discomfort, difficulty with urination and elevated BP.
Urinary Retention - Likely Subacute / Chronic
GISELL secondary to the above
BPH
- Benitez placed in the ED with only 675cc out and very little catheter external.
- Balloon deflated and catheter pulled back resulting in grossly bloody urine return.
- Flomax started, and Proscar added.
- Urology evaluation for further recommendations.
- SCr = 2.0->1.7->1.5 compared to baseline of 1.0.
- Per urology, patient can be discharged with his catheter and Alfuzosin and Proscar for outpatient voiding trial and evaluation.
- Recheck BMP and CBC outpatient
Benign Hypertension
- BP currently elevated - likely due to combination of non-compliance with meds and acute discomfort.
- Hold Dyazide for now noting prior issues with adverse effects, etc.
- Amlodipine started as new medication this admission, titrate as needed for improved BP control.
- Follow for improvement with alleviation of urinary obstruction as well.
DVT Prophylaxis: SCDs.
Code Status: Full Code
More than 30 minutes spent in discharge including
Final examination of the patient
Summarizing hospital stay
Instructions for continuing care to all relevant caregivers
Preparation of discharge records, prescriptions, and referral forms
Total time spent (in minutes): 36
Anticipated Discharge: Today
Subjective/Interval History
-
Date of Service: September 08, 2024
Patient was seen and examined. He denied minimal to no suprapubic pain, and he stated he has no flank or back pain. He denied any fever or chills.
Objective Data
-
Labs:
Laboratory Results
09/08/24
07:51
WBC 8.3
Hgb 13.5
Hct 40.0
Plt Count 148
Sodium 139
Potassium 3.8
Chloride 101
Carbon Dioxide 28
BUN 26 H
Creatinine 1.5 H
Glucose 119 H
Calcium 8.9
Vital Signs:
Vital Signs
Temp Pulse Resp BP Pulse Ox
98 F 71 16 143/68 96
09/08/24 07:38 09/08/24 07:38 09/08/24 07:38 09/08/24 07:38 09/08/24 07:38
I&O
09/07/24 09/08/24 09/09/24
06:59 06:59 06:59
Intake Total 340 / 340 2380 / 2380
Output Total 1250 / 1250 3900 / 3900
Balance -910 / -910 -1520 / -1520
[2024-09-08 11:35] VITALS: BP 154/86
--- NOTE | 2024-09-08 12:54 | CM ---
Reviewed chart, met with patient to obtain information for assessment. Patient's son was at bedside. Patient stated that he lives with his and mother in law in a two story home with two steps to enter. He described himself as independent with
his ADLs, personal care, dressing and bathing. 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 He has been able to drive and can transport himself to his appointments and does his own shopping.
Patient denied any DME in his home.
He has never had VN services, however he is agreeable to VN post this visit. Referral already made and patient understands to wait for a call regarding time and day of his visit.
He has never been to a SNF.
Patient has a prescription plan and uses, [facility] in [place] for all of his medications.
Patient's PCP is, Tal Baig.
Patient's son, John stated that he was going to provide transportation home. IMM signed and patient discharged without concerns. IMM on chart.
Plan: Case management will continue to follow and assist with discharge planning. Home with VN through .
== END 2024-09-08 15:10 | disposition home health service (06) | DRG 683 ==
LOC: 3 WEST ACU 22:59
PROVIDERS: Physician Assistant Medical; ADMITTING PHYSICIAN Hospitalist; ATTENDING PHYSICIAN Hospitalist; CONSULT PHYSICIAN Specialist; EMERGENCY PHYSICIAN Emergency Medicine; FAMILY PHYSICIAN Internal Medicine
DX: N17.9 Acute kidney failure, unspecified (principal); N13.8 Other obstructive and reflux uropathy; R33.8 Other retention of urine; N13.30 Unspecified hydronephrosis; N40.1 Benign prostatic hyperplasia with lower urinary tract symptoms; I10 Essential (primary) hypertension; Z87.891 Personal history of nicotine dependence; Z82.49 Family history of ischemic heart disease and other diseases of the circulatory system; R31.0 Gross hematuria; K42.9 Umbilical hernia without obstruction or gangrene; Z91.148 Patient's other noncompliance with medication regimen for other reason; Z86.0100 Personal history of colon polyps, unspecified
CPT/HCPCS: 51702; 51798; 71046; 74176; 80048; 80053; 81003; 81015; 84484; 85025; 85027; 87086; 93005; 99285

== ENCOUNTER 2025-06-09 05:59 | Day surgery (SDC) | payer OTHER, SELFPAY ==
[2025-06-01 08:54] LABS: Hematocrit 39.6 % (39.0-52.0); Hemoglobin 13.0 g/dL (13.0-18.0); Mean Corp Hgb Conc. 32.8 g/dL (33.0-37.0); Mean Corpuscular Volume 90.0 fL (80.0-94.0); Platelet Count 143 10^3/uL (130-400); Red Cell Dist. Width 13.1 % (11.5-14.5)
[2025-06-01 09:09] LABS: INR 0.94; PT 13.1 Sec (11.4-14.6)
[2025-06-01 09:10] LABS: APTT 27.7 Sec (23.4-35.0)
[2025-06-01 10:06] LABS: Blood Urea Nitrogen 20 mg/dl (9-20); Calcium 8.8 mg/dl (8.4-10.2); Carbon Dioxide 23 mmol/L (22-30); Chloride 109 mmol/L (98-107); Glucose 114 mg/dl (70-99); Potassium 4.8 mmol/L (3.5-5.1); Sodium 140 mmol/L (135-145); eGFR > 60.00
--- NOTE | 2025-06-01 14:46 | PTCARENOTE ---
Abnormal EKG reviewed by Dr. Hurd, no further action requested.
[2025-06-09] VITALS (17 sets, daily range): BP systolic 119–159; BP diastolic 54–67
[2025-06-09] MEDS: NORMOSOL-R/PLASMALYTE-A 1000 IV (07:05)
--- NOTE | 2025-06-09 09:24 | W.PN.ADMIT ---
Progress Note - Admit
Progress Note - Admit
pt s/p large TURP
admit for cbi/monitoring
[2025-06-09 10:16] LABS: Hematocrit 39.8 % (39.0-52.0); Hemoglobin 13.1 g/dL (13.0-18.0); Mean Corp Hgb Conc. 32.9 g/dL (33.0-37.0); Mean Corpuscular Volume 90.5 fL (80.0-94.0); Platelet Count 131 10^3/uL (130-400); Red Cell Dist. Width 13.2 % (11.5-14.5)
[2025-06-09 10:33] LABS: Blood Urea Nitrogen 18 mg/dl (9-20); Calcium 8.7 mg/dl (8.4-10.2); Carbon Dioxide 26 mmol/L (22-30); Chloride 108 mmol/L (98-107); Estimated Creatinine Clearance 69 ml/min; Glucose 142 mg/dl (70-99); Potassium 4.8 mmol/L (3.5-5.1); Sodium 139 mmol/L (135-145); eGFR > 60.00
--- NOTE | 2025-06-09 12:50 | PTCARENOTE ---
Pt received from the PACU via bed. Transport was w/o incident. Pt has a 3Way Benitez Cath. w/ CBI running. Urine is pale pink. Pt denies pain or nausea at this time. VSS, Pt is afebrile. Pt instructed on plan of care. Pt verbalized understanding of
instructions. Pt resting quietly. Call monzon is within reach.
[2025-06-09] MEDS: NSS 1000 IV (14:05)
[2025-06-09] MEDS: ULTRAM 50 MG PO (14:10)
[2025-06-09] MEDS: FLOMAX 0.4 MG PO (18:30)
[2025-06-09] MEDS: VIBRAMYCIN 100 MG PO (19:41)
[2025-06-09] MEDS: COLACE 100 MG PO (19:42)
[2025-06-10] MEDS: NSS 1000 IV (03:05)
[2025-06-10 03:09] VITALS: BP 132/67
[2025-06-10 06:42] LABS: Hematocrit 37.2 % (39.0-52.0); Hemoglobin 12.4 g/dL (13.0-18.0); Mean Corp Hgb Conc. 33.3 g/dL (33.0-37.0); Mean Corpuscular Volume 89.2 fL (80.0-94.0); Platelet Count 124 10^3/uL (130-400); Red Cell Dist. Width 13.2 % (11.5-14.5)
[2025-06-10 06:58] LABS: Blood Urea Nitrogen 14 mg/dl (9-20); Calcium 8.8 mg/dl (8.4-10.2); Carbon Dioxide 25 mmol/L (22-30); Chloride 108 mmol/L (98-107); Estimated Creatinine Clearance 85 ml/min; Glucose 118 mg/dl (70-99); Potassium 4.4 mmol/L (3.5-5.1); Sodium 139 mmol/L (135-145); eGFR > 60.00
--- NOTE | 2025-06-10 07:23 | W.PN.URO.CBU ---
Today's Communication / Plan
-
ruotine post TUR care
Assessment / Plan
-
s/p TURP
UOOB
regular diet
wean cbi- off at midnight
Diagnosis
-
Date of Service: June 10, 2025
-
Patient Diagnosis:
BPH
Post Op Day:
TURP 06/09
Subjective
-
pt stable
urine light pink on moderate rate cbi
Objective
-
Vital Signs
Temp Pulse Resp BP Pulse Ox
98.5 F 66 18 132/67 96
06/10/25 03:09 06/10/25 03:09 06/10/25 03:09 06/10/25 03:09 06/10/25 03:09
Intake and Output
06/09/25 06/10/25 06/11/25
06:59 06:59 06:59
Intake Total 1765 / 1765
Output Total 1200 / 1200
Balance 565 / 565
Intake:
Oral fluids 480 / 480
IV fluids (Total) 1285 / 1285
Noirm 325 / 325
Output:
True Urine Output from CBI 1200 / 1200
Laboratory Results
06/10/25 06:09
06/10/25 06:09
Review of Systems
-
Constitutional: No Symptoms
Respiratory: No Symptoms
Cardiac: No Symptoms
Abdomen/GI: No Symptoms
Physical Exam
-
General - no acute distress
Abdomen - soft, non-tender
Genitalia - [address]
[2025-06-10 07:45] VITALS: BP 136/64
[2025-06-10] MEDS: PROSCAR 5 MG PO (07:51)
[2025-06-10] MEDS: COLACE 100 MG PO ×2 (07:51→20:03)
[2025-06-10] MEDS: VIBRAMYCIN 100 MG PO ×2 (07:51→20:03)
[2025-06-10] MEDS: NORVASC 5 MG PO (07:51)
[2025-06-10] MEDS: ULTRAM 50 MG PO ×2 (10:24→18:49)
--- NOTE | 2025-06-10 11:04 | CM ---
Cm reviewed medical records. Patient denied current VN. Patient does not have a history of SNF. Patient does not rely on any DME in the home.
Patient is active with his PCP. Patient has medication coverage.
Patient is very comfortable to gee care and declined VN at this time.
PLAN: home no needs.
[2025-06-10 11:20] VITALS: BP 121/67
[2025-06-10 15:20] VITALS: BP 132/66
[2025-06-10] MEDS: FLOMAX 0.4 MG PO (18:42)
[2025-06-10 23:08] VITALS: BP 153/74
--- NOTE | 2025-06-11 00:12 | PTCARENOTE ---
CBI clamped at 0001. Bag emptied. Urine clear. Cath plug in place. Care ongoing.
[2025-06-11] MEDS: ULTRAM 50 MG PO (06:04)
--- NOTE | 2025-06-11 07:27 | W.PN.URO.CBU ---
Today's Communication / Plan
-
TOV
Assessment / Plan
-
gee out for TOV and probable discharge
instructions reviewed
Diagnosis
-
Date of Service: June 11, 2025
-
Patient Diagnosis:
BPH
Post Op Day:
TURP 06/09
Subjective
-
pt stable
urine clear off cbi
Objective
-
Vital Signs
Temp Pulse Resp BP Pulse Ox
98.4 F 60 16 153/74 96
06/10/25 23:08 06/10/25 23:08 06/10/25 23:08 06/10/25 23:08 06/10/25 23:08
Intake and Output
06/10/25 06/11/25 06/12/25
06:59 06:59 06:59
Intake Total 1765 / 1765 1920 / 1920
Output Total 1200 / 1200 2600 / 2600
Balance 565 / 565 -680 / -680
Intake:
Oral fluids 480 / 480 1920 / 1920
IV fluids (Total) 1285 / 1285
Noirm 325 / 325
Output:
Urine, Gee 450 / 450
True Urine Output from CBI 1200 / 1200 2150 / 2150
Laboratory Results
06/10/25 06:09
06/10/25 06:09
Review of Systems
-
Constitutional: No Symptoms
Respiratory: No Symptoms
Cardiac: No Symptoms
Abdomen/GI: No Symptoms
Physical Exam
-
General - no acute distress
Abdomen - soft, non-tender
Genitalia - gee removed
[2025-06-11 07:50] VITALS: BP 163/73
[2025-06-11] MEDS: COLACE 100 MG PO (08:31)
[2025-06-11] MEDS: PROSCAR 5 MG PO (08:31)
[2025-06-11] MEDS: NORVASC 5 MG PO (08:31)
[2025-06-11] MEDS: VIBRAMYCIN 100 MG PO (08:31)
[2025-06-11 13:00] VITALS: BP 126/70
== END 2025-06-11 14:25 | disposition home or self-care (01) ==
LOC: SDS 05:59
PROVIDERS: ATTENDING PHYSICIAN Specialist; FAMILY PHYSICIAN Internal Medicine
DX: N40.1 Benign prostatic hyperplasia with lower urinary tract symptoms (principal); N13.8 Other obstructive and reflux uropathy; N34.2 Other urethritis
CPT/HCPCS: 52601; 36415; 80048; 85027; 85610; 85730; 88305; 93005

== ENCOUNTER → 2025-06-22 11:56 | Outpatient (REF) | payer MEDICARE, OTHER, SELFPAY | LOC: CLAB 11:56 | PROVIDERS: ATTENDING PHYSICIAN Specialist | DX: N39.0 Urinary tract infection, site not specified (principal) | CPT/HCPCS: 87086 ==

== ENCOUNTER → 2025-06-28 10:27 | Outpatient (REF) | payer MEDICARE, OTHER, SELFPAY | LOC: RAD 10:27 | PROVIDERS: ATTENDING PHYSICIAN Internal Medicine | DX: E78.5 Hyperlipidemia, unspecified (principal) | CPT/HCPCS: 75571 ==

== ENCOUNTER 2025-08-06 10:50 | Emergency (ER) | payer MEDICARE, OTHER, SELFPAY ==
[2025-08-06 10:55] VITALS: BP 139/71
--- NOTE | 2025-08-06 12:38 | ED.GENMED ---
History of Present Illness
<Amando Zimmer PA-C - Last Filed: 08/07/25 08:37>
General
Chief Complaint: Musculo-Skeletal Complaint
Time Seen by Provider: 08/06/25 11:23
History of Present Illness
History of Present Illness:
69-year-old male with history of hypertension and BPH status post TURP presents to the emergency department for evaluation of night sweats and diffuse myalgias gradually worsening over the past week. He is approximately 9 weeks status post TURP.
He saw his urologist for the symptoms earlier in the week and was sent for outpatient labs and urine culture, labs revealed leukocytosis however urine culture was negative. He was started on levofloxacin and has taken 3 doses thus far with no
change in symptoms. He reports significant difficulty with ambulation secondary to myalgias which are worse in the lower extremities. Denies objective fever. No known recent tick bites.
Past History
<Amando Zimmer PA-C - Last Filed: 08/07/25 08:37>
Past History
ED Past Medical History: HTN and Other (pancreatic mass on MRI abdomen, umbilical hernia)
ED Past Surgical History: None
Social History
Tobacco: Non-smoker
Review of Systems
<Amando Zimmer PA-C - Last Filed: 08/07/25 08:37>
Review of Systems
Allergies reviewed?: Yes
All Other Systems: ROS reviewed and negative except as documented in HPI and ROS
Phy Exam
<Amando Zimmer PA-C - Last Filed: 08/07/25 08:37>
Physical Exam
Physical Exam:
GEN: Well appearing, NAD, WDWN
HEENT: Oral mucosa moist, no scleral icterus
Cardiac: Regular rate and rhythm, no murmurs
Lung: No respiratory distress, no tachypnea
MSK: No gross deformity or injuries, lower extremity compartments are diffusely soft and nontender
Skin: Good color, no pallor or jaundice, no rashes
Neuro: AO x3, moves all extremities freely
Psych: Calm, cooperative
Course
<Amando Zimmer PA-C - Last Filed: 08/07/25 08:37>
Orders/Labs/Results
Orders:
Orders
08/06/25 12:14
0.9% Sodium Chloride 1000 ml [Nss] 1,000 ml IV BOLUS
08/06/25 12:23
CPK [Creatine Phosphokinase] Urgent
Complete Blood Count/With Diff Urgent
Comprehensive Metabolic Panel Urgent
Lyme Progressive Urgent
Comment: ADD ON
08/06/25 13:37
Add On- LAB Urgent
Tests Added?: lyme progressive
08/06/25 13:40
Ketorolac [Toradol] 15 mg IV NOW STA
08/06/25 13:42
CT Abd/Pel (IV only)-[facility] only Urgent
Comment:
Reason For Exam: RLQ pain/leukocytosis
08/06/25 13:47
0.9% Sodium Chloride 1000 ml [Nss] 1,000 ml IV BOLUS
08/06/25 14:32
Urinalysis Reflex To Culture Urgent
Date Specimen was Collected: 08/06/25
Time Specimen was Collected: 13:58
Urine Microscopic Reflex Cult Urgent
Urine Culture Urgent
DU Source: U
Specimen Description:
Date Specimen was Collected: 08/06/25
Time Specimen was Collected: 13:58
Abnormal Lab Results
08/06/25 08/06/25
12:23 14:32
WBC 15.6 H 10^3/uL
(4.8-10.8)
RBC 4.48 L 10^6/uL
(4.70-6.10)
Hgb 12.8 L g/dL
(13.0-18.0)
MCHC 31.5 L g/dL
(33.0-37.0)
MPV 11.7 H fL
(7.4-10.4)
Abs Immat Gran (auto) 0.1 H 10^3/uL
(0-0.05)
Absolute Neuts (auto) 13.4 H 10^3/uL
(1.4-6.5)
Absolute Lymphs (auto) 0.8 L 10^3/uL
(1.2-3.4)
Absolute Monos (auto) 1.1 H 10^3/uL
(0.1-0.6)
Neutrophils % 85.8 H %
(42.2-75.2)
Lymphocytes % 5.1 L %
(20.5-51.1)
Glucose 178 H mg/dl
(70-99)
Creatine Kinase 24 L U/L
(55-170)
Urine Ketones 1+ A
(Negative)
Ur Occult Blood Reflex 4+ A
(Negative)
Urine Urobilinogen 2+ A
(Neg - 1+)
Leukocyte Esterase Rfl 3+ A
(Negative)
Urine RBC 50-60 A /HPF
(0-2)
Urine WBC (Reflex) 60-70 A /HPF
(0-5)
Urine Bacteria (Reflex) Many A
(Negative)
Urine Albumin (Reflex) 3+ A
(Neg - Trace)
08/06/25 12:23
08/06/25 12:23
Vital Signs
Initial and Last Documented VS:
Initial Vital Signs
Temp Pulse Resp BP Pulse Ox
97.7 F 100 20 139/71 98
08/06/25 10:55 08/06/25 10:55 08/06/25 10:55 08/06/25 10:55 08/06/25 10:55
Last Documented Vital Signs
Temp Pulse Resp BP Pulse Ox
98.5 F 79 18 141/69 98
08/06/25 18:30 08/06/25 18:30 08/06/25 18:30 08/06/25 18:30 08/06/25 18:30
<Brice Prince Ashley, DO - Last Filed: 08/06/25 14:34>
Orders/Labs/Results
Orders:
Orders
08/06/25 12:14
0.9% Sodium Chloride 1000 ml [Nss] 1,000 ml IV BOLUS
08/06/25 12:23
CPK [Creatine Phosphokinase] Urgent
Complete Blood Count/With Diff Urgent
Comprehensive Metabolic Panel Urgent
Lyme Progressive Urgent
Comment: ADD ON
08/06/25 13:37
Add On- LAB Urgent
Tests Added?: lyme progressive
08/06/25 13:40
Ketorolac [Toradol] 15 mg IV NOW STA
08/06/25 13:42
CT Abd/Pel (IV only)-[facility] only Urgent
Comment:
Reason For Exam: RLQ pain/leukocytosis
08/06/25 13:47
0.9% Sodium Chloride 1000 ml [Nss] 1,000 ml IV BOLUS
08/06/25 14:32
Urinalysis Reflex To Culture Urgent
Date Specimen was Collected: 08/06/25
Time Specimen was Collected: 13:58
Urine Microscopic Reflex Cult Urgent
Urine Culture Urgent
DU Source: U
Specimen Description:
Date Specimen was Collected: 08/06/25
Time Specimen was Collected: 13:58
Abnormal Lab Results
08/06/25 08/06/25
12:23 14:32
WBC 15.6 H 10^3/uL
(4.8-10.8)
RBC 4.48 L 10^6/uL
(4.70-6.10)
Hgb 12.8 L g/dL
(13.0-18.0)
MCHC 31.5 L g/dL
(33.0-37.0)
MPV 11.7 H fL
(7.4-10.4)
Abs Immat Gran (auto) 0.1 H 10^3/uL
(0-0.05)
Absolute Neuts (auto) 13.4 H 10^3/uL
(1.4-6.5)
Absolute Lymphs (auto) 0.8 L 10^3/uL
(1.2-3.4)
Absolute Monos (auto) 1.1 H 10^3/uL
(0.1-0.6)
Neutrophils % 85.8 H %
(42.2-75.2)
Lymphocytes % 5.1 L %
(20.5-51.1)
Glucose 178 H mg/dl
(70-99)
Creatine Kinase 24 L U/L
(55-170)
Urine Ketones 1+ A
(Negative)
Ur Occult Blood Reflex 4+ A
(Negative)
Urine Urobilinogen 2+ A
(Neg - 1+)
Leukocyte Esterase Rfl 3+ A
(Negative)
Urine RBC 50-60 A /HPF
(0-2)
Urine WBC (Reflex) 60-70 A /HPF
(0-5)
Urine Bacteria (Reflex) Many A
(Negative)
Urine Albumin (Reflex) 3+ A
(Neg - Trace)
08/06/25 12:23
08/06/25 12:23
Vital Signs
Initial and Last Documented VS:
Initial Vital Signs
Temp Pulse Resp BP Pulse Ox
97.7 F 100 20 139/71 98
08/06/25 10:55 08/06/25 10:55 08/06/25 10:55 08/06/25 10:55 08/06/25 10:55
Last Documented Vital Signs
Temp Pulse Resp BP Pulse Ox
98.5 F 79 18 141/69 98
08/06/25 18:30 08/06/25 18:30 08/06/25 18:30 08/06/25 18:30 08/06/25 18:30
<LEXY Khan - Last Filed: 08/06/25 17:20>
Orders/Labs/Results
Orders:
Orders
08/06/25 12:14
0.9% Sodium Chloride 1000 ml [Nss] 1,000 ml IV BOLUS
08/06/25 12:23
CPK [Creatine Phosphokinase] Urgent
Complete Blood Count/With Diff Urgent
Comprehensive Metabolic Panel Urgent
Lyme Progressive Urgent
Comment: ADD ON
08/06/25 13:37
Add On- LAB Urgent
Tests Added?: lyme progressive
08/06/25 13:40
Ketorolac [Toradol] 15 mg IV NOW STA
08/06/25 13:42
CT Abd/Pel (IV only)-[facility] only Urgent
Comment:
Reason For Exam: RLQ pain/leukocytosis
08/06/25 13:47
0.9% Sodium Chloride 1000 ml [Nss] 1,000 ml IV BOLUS
08/06/25 14:32
Urinalysis Reflex To Culture Urgent
Date Specimen was Collected: 08/06/25
Time Specimen was Collected: 13:58
Urine Microscopic Reflex Cult Urgent
Urine Culture Urgent
DU Source: U
Specimen Description:
Date Specimen was Collected: 08/06/25
Time Specimen was Collected: 13:58
Abnormal Lab Results
08/06/25 08/06/25
12:23 14:32
WBC 15.6 H 10^3/uL
(4.8-10.8)
RBC 4.48 L 10^6/uL
(4.70-6.10)
Hgb 12.8 L g/dL
(13.0-18.0)
MCHC 31.5 L g/dL
(33.0-37.0)
MPV 11.7 H fL
(7.4-10.4)
Abs Immat Gran (auto) 0.1 H 10^3/uL
(0-0.05)
Absolute Neuts (auto) 13.4 H 10^3/uL
(1.4-6.5)
Absolute Lymphs (auto) 0.8 L 10^3/uL
(1.2-3.4)
Absolute Monos (auto) 1.1 H 10^3/uL
(0.1-0.6)
Neutrophils % 85.8 H %
(42.2-75.2)
Lymphocytes % 5.1 L %
(20.5-51.1)
Glucose 178 H mg/dl
(70-99)
Creatine Kinase 24 L U/L
(55-170)
Urine Ketones 1+ A
(Negative)
Ur Occult Blood Reflex 4+ A
(Negative)
Urine Urobilinogen 2+ A
(Neg - 1+)
Leukocyte Esterase Rfl 3+ A
(Negative)
Urine RBC 50-60 A /HPF
(0-2)
Urine WBC (Reflex) 60-70 A /HPF
(0-5)
Urine Bacteria (Reflex) Many A
(Negative)
Urine Albumin (Reflex) 3+ A
(Neg - Trace)
08/06/25 12:23
08/06/25 12:23
Vital Signs
Initial and Last Documented VS:
Initial Vital Signs
Temp Pulse Resp BP Pulse Ox
97.7 F 100 20 139/71 98
08/06/25 10:55 08/06/25 10:55 08/06/25 10:55 08/06/25 10:55 08/06/25 10:55
Last Documented Vital Signs
Temp Pulse Resp BP Pulse Ox
98.5 F 79 18 141/69 98
08/06/25 18:30 08/06/25 18:30 08/06/25 18:30 08/06/25 18:30 08/06/25 18:30
<Amando Zimmer PA-C - Last Filed: 08/07/25 08:37>
MDM/Problems Addressed
MDM/Problems Addressed:
69-year-old male presenting with myalgias found to have leukocytosis but no clear source of fever. Currently on Levaquin. Pending CT scan will sign out to oncoming shift, plan for discharge home if CT is unrevealing consider continuing Levaquin
<Amando Zimmer PA-C - Last Filed: 08/07/25 08:37>
*Pulse Oximetry
SaO2: 98
Oxygen Mode of Delivery: Room air
<LEXY Khan - Last Filed: 08/06/25 17:20>
*Pulse Oximetry
Patient hypoxic: no
*Critical Care Note
Total Time (30-74mins, 75-104mins- exclusive of procedures): Not Applicable
<LEXY Khan - Last Filed: 08/06/25 17:20>
Update Note
Update Note:
Received signout on patient. CAT scan shows circumferential bladder wall thickening. I did review this with urology who does not feel that this is a urological problem. He may continue his Levaquin. Lyme test is pending. Patient does feel well
enough to go home. He is well-appearing in no acute distress here in the ER. He is afebrile with stable vital signs. Labs noted with minimal elevation in white, normal LFTs normal platelets. Discussed close outpatient up with family doctor and
prompt return if any worsening of symptoms.
ED Attending Note
<Amando Zimmer PA-C - Last Filed: 08/07/25 08:37>
-
Portions of this chart may have been created with voice recognition software.� Occasional wrong word or��sound alike� substitutions may have occurred due to the inherent limitations of voice recognition software.
<Brice Ramirez DO - Last Filed: 08/06/25 14:34>
ED Attending Note
Patient seen and examined by attending physician: Yes
I performed the substantive portion of visit, reviewed & personally made and approve the management plan that is documented in note by myself or JHONATHAN.: Yes
ED Attending Note:
I evaluated patient at bedside. Leukocytosis noted. The patient is currently well-appearing after he received Toradol. He states that his extremity pain is significantly improved. Will obtain CT imaging of the abdomen pelvis and awaiting
urinalysis but current he feels well enough that he could potentially be discharged if there is no other concerning finding
Discharge Plan
Departure
Patient Disposition: Home (Routine Discharge)
Date of Disposition: 08/06/25
Time of Disposition: 17:16
Patient with high blood pressure during this ER visit?: Yes
Discharge Problem:
Myalgia
Instructions: Muscle and Bone Pain (DC), BLOOD PRESSURE
Prescriptions:
New
celecoxib [Celebrex] 200 mg capsule
200 mg PO BID Qty: 15 0RF
No Action
amlodipine 5 mg Tablet
5 mg PO DAILY Qty: 30 1RF
finasteride 5 mg Tablet
5 mg PO DAILY Qty: 30 1RF
doxycycline hyclate 100 mg capsule
100 mg PO BID Qty: 10 0RF
tramadol 50 mg tablet
50 mg PO Q8H PRN (Reason: Pain) Qty: 7 0RF
Referrals:
Tal Encarnacion DO [Family Provider, Internal Medicine]
Activity Restrictions/Additional Instructions:
You may continue your antibiotic as previously prescribed by urology. Please follow-up closely however with your family doctor for reevaluation of joint pain. Lyme test is currently pending at this time. Return to the if any worsening of symptoms
or increased pain fever chills or any further concerns.
Interventions
Interventions:
*Risk Screen - Suicide Last Done: 08/06/25 10:55
*General Assessment Last Done: 08/06/25 10:55
*Neglect/Abuse Screening Last Done: 08/06/25 10:55
*ED- Fall Risk Assessment Last Done: 08/06/25 10:55
*ED COVID-19 Vaccine History Last Done: 08/06/25 10:55
*ED Influenza Vaccine History Last Done: 08/06/25 10:55
*Nursing Disposition Last Done: 08/06/25 18:31
ED-Musculoskeletal Assessment Last Done: 08/06/25 11:35
Discharge Date and Time
Discharge Date/Time: 08/06/25 18:33
Print Language: BENGALI
[2025-08-06 12:41] LABS: Hematocrit 40.6 % (39.0-52.0); Hemoglobin 12.8 g/dL (13.0-18.0); Mean Corp Hgb Conc. 31.5 g/dL (33.0-37.0); Mean Corpuscular Volume 90.6 fL (80.0-94.0); Nucleated Red Blood Cells % 0 % (-); Platelet Count 252 10^3/uL (130-400); Red Cell Dist. Width 12.9 % (11.5-14.5)
[2025-08-06 12:49] LABS: ALT (SGPT) 19 U/L (0-50); AST (SGOT) 17 U/L (17-59); Albumin 3.5 g/dl (3.5-5.0); Alkaline Phosphatase 94 U/L (38-126); Blood Urea Nitrogen 15 mg/dl (9-20); Calcium 8.9 mg/dl (8.4-10.2); Carbon Dioxide 24 mmol/L (22-30); Chloride 102 mmol/L (98-107); Glucose 178 mg/dl (70-99); Potassium 4.3 mmol/L (3.5-5.1); Sodium 135 mmol/L (135-145); Total Protein 6.9 g/dl (6.3-8.2); eGFR > 60.00
[2025-08-06] MEDS: TORADOL 15 MG IV (13:50)
[2025-08-06] MEDS: NSS 1000 IV (13:55)
[2025-08-06 13:57] VITALS: BP 146/74
[2025-08-06 14:53] LABS: Urine Character Cloudy (Clear)
[2025-08-06 15:11] LABS: Urine Squamous Cell 0-2 /LPF (Few)
[2025-08-06 15:12] LABS: Urine Red Blood Cell 50-60 /HPF (0-2); Urine White Cell 60-70 /HPF (0-5)
[2025-08-06 18:30] VITALS: BP 141/69
[2025-08-08 16:07] LABS: Lyme Antibody Screen, EIA Negative (Negative)
== END 2025-08-06 18:33 | disposition home or self-care (01) ==
LOC: EMR 10:50
PROVIDERS: Physician Assistant; EMERGENCY PHYSICIAN Emergency Medicine; FAMILY PHYSICIAN Internal Medicine
DX: M79.18 Myalgia, other site (principal); I10 Essential (primary) hypertension; N40.0 Benign prostatic hyperplasia without lower urinary tract symptoms; Z90.79 Acquired absence of other genital organ(s)
CPT/HCPCS: 96374; 96361; 99284; 74177; 80053; 81003; 81015; 82550; 85025; 86618; 87086; Q9967

== ENCOUNTER 2025-08-11 19:44 | Inpatient (IN) | payer MEDICARE, OTHER, SELFPAY ==
[2025-08-11 12:16] VITALS: BP 138/69
[2025-08-11 12:44] LABS: Hematocrit 38.6 % (39.0-52.0); Hemoglobin 12.1 g/dL (13.0-18.0); Mean Corp Hgb Conc. 31.3 g/dL (33.0-37.0); Mean Corpuscular Volume 90.8 fL (80.0-94.0); Nucleated Red Blood Cells % 0 % (-); Platelet Count 349 10^3/uL (130-400); Red Cell Dist. Width 13.7 % (11.5-14.5)
[2025-08-11 12:45] LABS: ALT (SGPT) 26 U/L (0-50); AST (SGOT) 18 U/L (17-59); Albumin 2.8 g/dl (3.5-5.0); Alkaline Phosphatase 188 U/L (38-126); Blood Urea Nitrogen 17 mg/dl (9-20); Calcium 8.3 mg/dl (8.4-10.2); Carbon Dioxide 26 mmol/L (22-30); Chloride 102 mmol/L (98-107); Glucose 210 mg/dl (70-99); Potassium 4.0 mmol/L (3.5-5.1); Sodium 134 mmol/L (135-145); Total Protein 6.0 g/dl (6.3-8.2); eGFR > 60.00
[2025-08-11 15:19] VITALS: BMI 29.0
[2025-08-11] MEDS: TORADOL 15 MG IV (17:12)
[2025-08-11 18:10] LABS: Urine Character Cloudy (Clear)
[2025-08-11 18:39] LABS: Urine Urothelial Cell 0-2 /LPF (FEW)
[2025-08-11 18:40] LABS: Urine Red Blood Cell 90-100 /HPF (0-2); Urine White Cell 80-90 /HPF (0-5)
--- NOTE | 2025-08-11 18:40 | ED.GENMED ---
History of Present Illness
General
Chief Complaint: Abnormal Lab Value
Source: patient and spouse
Time Seen by Provider: 08/11/25 15:14
History of Present Illness
History of Present Illness:
Note:
CHIEF COMPLAINT(S)
Bilateral leg pain.
HISTORY OF PRESENT ILLNESS
The patient is a 70-year-old male presenting with bilateral leg pain that began approximately one week ago. The pain is described as constant and worsening over time. The patient reports taking ibuprofen every three hours for relief, and when the
medication wears off, the pain intensifies significantly. Initially, the patient believed the pain was muscular, but it has recently felt more joint-related. The pain is diffuse throughout the legs and is also described as being present slightly in
the shoulders. No specific injuries or back pain were reported. The patient has noted severe night sweats and chills occurring daily, but no fevers have been recorded. There is a past history of transurethral resection of the prostate (TURP) surgery
performed two months ago. Following this, the patient experienced significant bleeding and blood clots while urinating.
ADDITIONAL HISTORY OBTAINED FROM SOURCES OTHER THAN PATIENT
Per the patients family member, after passing two large blood clots post-surgery, the patient had transient relief before the discomfort returned. The family member also mentioned that the patient was advised by Dr. Toro that the blood clots were
a normal post-surgical outcome.
EXTERNAL RECORDS REVIEWED
Records indicate that the patient previously had a CT scan, and prior Lyme disease testing was negative.
SOCIAL DETERMINANTS AFFECTING HEALTH
The patients family member discussed financial aspects impacting medication management.
MEDICATIONS
- Amlodipine for hypertension.
- Doxycycline, prescribed while evaluating a Lyme disease possibility.
- Tylenol (paracetamol) and ibuprofen for pain management.
- Finasteride, although currently not being taken.
REVIEW OF SYSTEMS
- Musculoskeletal: Constant bilateral leg pain, feels joint-related; minor discomfort in shoulders.
- Constitutional: Severe night sweats and daily chills, with no fevers recorded.
- Genitourinary: Episodes of significant blood in urine and pain during urination, particularly after TURP surgery.
PHYSICAL EXAM
General: Alert, no acute distress.
Skin: Warm, dry.
Head: Normocephalic, atraumatic.
Neck: Supple, trachea midline.
Eye, Ears, Nose, Mouth and Throat: Oral mucosa moist, TMs clear.
Cardiovascular: Normal peripheral perfusion, heart is regular without murmur.
exam. scrotum and penis normal. no redness. no swelling
Respiratory: Respirations are non-labored.
Gastrointestinal: Abdomen nondistended and non-tender.
Back: Normal range of motion, normal alignment.
Musculoskeletal: Normal range of motion in bilateral knees and hips, no joint effusions, no muscle tenderness.
Neurological: Alert and oriented to person, place, time, and situation, no focal neurological deficit observed.
Psychiatric: Cooperative, appropriate mood & affect.
PROBLEM LIST
Acute Problems:
- Bilateral leg pain.
- Night sweats and chills.
- Blood clots post-TURP surgery.
- Possible infection or inflammatory response.
PLAN
1. Blood cultures to rule out bacteremia or other systemic infection.
2. Chest X-ray to evaluate potential causes of night sweats.
3. Muscle enzyme laboratory test (CPK) to assess for muscle inflammation.
4. Urine sample collection for further analysis.
5. Review previous CT scan and laboratory data to guide further diagnostic and treatment decisions.
6. Monitoring symptoms and reassessing in follow-up with primary care and specialists involved.
DIFFERENTIAL DIAGNOSIS
The Differential Diagnosis includes, in no particular order and is not limited to:
1. Infection (e.g., with symptoms of night sweats, elevated white blood cell count)
2. Inflammatory process (e.g., due to recent surgical intervention)
3. Post-surgical complication from TURP
4. Hematoma or bleeding disorder
5. Deep vein thrombosis
6. Rheumatic condition
7. Autoimmune disorder
8. Medication side effect
9. Musculoskeletal disorder
10. Neoplastic process
Disposition:
SUMMARY OF ENCOUNTER
The patient is a 62-year-old male presenting with two weeks of bilateral leg pain, myalgias, persistent leukocytosis, night sweats, and chills. He previously had an aggressive transurethral resection of the prostate (TURP) and has been experiencing
complications. The CT scan showed bladder wall thickening. Initial management included a short course of levofloxacin. The patient has been on doxycycline but did not take it on the day of the visit. Lab results indicate an elevated white blood cell
count (22,000) with a left shift, and a urine analysis revealed significant leukocyte esterase, numerous white and red blood cells, and moderate bacteria. Blood cultures were ordered. The patient was sent for admission by his primary care physician
for further workup as symptoms persist. There is a concern for a possible infectious process or prostatitis. Given the persistence of symptoms and failure of outpatient management, a dose of cefepime was administered, and the patient was admitted
for further evaluation pending blood and urine culture results. Could consider MRI of the low back if cultures remain negative to rule out spinal infection. Certainly no evidence of spinal cord pathology on exam but denies back pain.
DISPOSITION
Admit.
ASSESSMENT
The patient�s symptoms, as well as the elevated leukocyte count and urinary findings, suggest possible infection or inflammation, possibly prostatitis. There is also consideration for a spinal infection if initial cultures fail to identify the
source.
EMERGENCY TREATMENTS ADMINISTERED
Cefepime administered for broad-spectrum antibiotic coverage.
PLAN
The patient is admitted for further diagnostic workup and evaluation. Blood and urine cultures have been sent to identify any potential infectious sources. If cultures are negative, consider MRI of the back to rule out a spinal infection. Monitor
and manage the patients symptoms and adjust treatment as needed based on culture results.
INDEPENDENT REVIEW OF LABS AND INTERPRETATION OF TESTS
My independent review of the CBC indicates leukocytosis with a white blood cell count of 22,000 and a neutrophil count of 83%.
My independent review of the urinalysis shows 3+ leukocyte esterase, 80-90 white blood cells, 90-100 red blood cells, and moderate bacteria.
MEDICATION RECONCILIATION
Cefepime was administered for broad-spectrum antibiotic coverage.
The patient has been on doxycycline, although he did not take it on the day of the visit.
MEDICAL DECISION MAKING
-Complexity of Data Reviewed: Chronic conditions affecting care [history of aggressive TURP]. Differential diagnoses include infection, inflammatory process, prostatitis, or spinal infection.
-Data:
Category 1
Non-emergency department records reviewed, including a CT scan showing bladder wall thickening. Negative urine cultures from a recent visit were also reviewed.
Category 2
Clinical information was obtained from an independent historian, as indicated by the primary care physicians recommendation for admission due to persistent symptoms.
-Risk:
Prescription medication was prescribed, cefepime was administered for a suspected infectious process.
Care significantly affected by social determinants of health, as financial aspects were impacting medication management discussed by the patients family member.
DIAGNOSIS
Possible infection [ICD-10: A49.9]
Prostatitis [ICD-10: N41.9]
Bladder wall thickening [ICD-10: R93.4]
Past History
Past History
ED Past Medical History: HTN and Other (pancreatic mass on MRI abdomen, umbilical hernia)
ED Past Surgical History: None
Social History
Tobacco: Non-smoker
Phy Exam
Physical Exam
Physical Exam:
.
Course
Orders/Labs/Results
Orders:
Orders
08/11/25 12:24
C-Reactive Protein Urgent
Comment: ADD ON
Complete Blood Count/With Diff Urgent
Comprehensive Metabolic Panel Urgent
Creatine Phosphokinase Urgent
Comment: ADD ON
Erythrocyte Sed Rate Urgent
Comment: ADD ON
08/11/25 Dinner
Regular
At Your Request: Limited, Cheese Packer Required
Does patient need a safe tray?: No
08/11/25 15:55
Blood Culture Q30M
DU Source: Blood/Venous
Specimen Description:
08/11/25 16:00
Blood Culture Q30M
DU Source: Blood/Venous
Specimen Description:
08/11/25 16:06
CR Chest - 2 Views Urgent
Comment:
Reason For Exam: leukocytosis, night sweats
08/11/25 16:59
Add On- LAB Urgent
Tests Added?: cpk
Morphine Sulfate 4 mg IV NOW STA
08/11/25 17:08
Ketorolac [Toradol] 15 mg IV NOW STA
08/11/25 17:42
Urinalysis Reflex To Culture Urgent
Date Specimen was Collected: 08/11/25
Time Specimen was Collected: 17:35
Urine Microscopic Reflex Cult Urgent
Urine Culture Urgent
DU Source: U
Specimen Description:
Date Specimen was Collected: 08/11/25
Time Specimen was Collected: 17:35
08/11/25 18:49
Cefepime HCl [Maxipime] 2,000 mg IV NOW STA
08/11/25 18:55
Add On- LAB Urgent
Tests Added?: ESR, CRP
08/11/25 19:24
Admit/Transfer Patient As Directed
Co-Sign Provider:
Level of Care: Inpatient admission
Assign to:: Medical/Surgical
Physician / Group: [facility]
Diagnosis: Leukocytosis
Reason for Hospitalization: Myalgias
Expected length of stay greater than two midnights?: Yes
ELOS- Estimated Length of Stay in days: 2
I certify the patient meets the requirements for IP care: Yes
PRN Pain Medication Management As Directed
May give lesser potent ordered pain med per pt: Yes
preference::
Protocol:: Medication orders for pain may be administered in a
manner that supports deferring to patient preference
when the pt is:
- Requesting an ordered lesser potent pain medication.
Least to most potent pain medications are defined
as: acetaminophen < NSAID < tramadol < opioids
(morphine, oxycodone, hydromorphone).
- Requesting a lesser dose of the same medication IF
ORDERED.
- Requesting a less intrusive route of administration
if both routes are prescribed by the provider (PO <
IV).
08/11/25 19:26
Code Status As Directed
Resuscitation Status: Full Code
Sterile Water [Sterile Water For Injection] 10 ml .ROUTE .STK-MED ONE
08/11/25 21:11
Acetaminophen [Tylenol] 650 mg PO Q4HPRN PRN
Bisacodyl [Dulcolax] 10 mg RECTAL [id number] PRN
Celecoxib [Celebrex] 200 mg PO BID
Docusate W/Senna [Senokot-S] 1 tablet PO BIDPRN PRN
Ondansetron Injectable [Zofran] 4 mg IV Q6HPRN PRN
Polyethylene Glycol Powder [Miralax] 17 grams PO DAILYPRN PRN
Tramadol HCl [Ultram] 50 mg PO Q6HPRN PRN
08/11/25 21:11
Activity As Directed
Activity Level: As Tolerated
Intake/ Output As Directed
Frequency: Per unit guidelines
Vital Signs As Directed
Frequency: Per unit guidelines
Pt Eval And Treat Routine
Activity Level: As Tolerated
DX Deep Vein Thrombosis Video Routine
08/12/25 04:00
Cefepime HCl [Maxipime] 1,000 mg IV Q6H
08/12/25 08:00
Amlodipine [Norvasc] 5 mg PO DAILY
Finasteride [Proscar] 5 mg PO DAILY
08/12/25 08:05
Basic Metabolic Panel IN AM
Complete Blood Count/No Diff IN AM
Creatine Phosphokinase IN AM
Ferritin IN AM
Magnesium IN AM
08/12/25 18:00
Enoxaparin Sodium [Lovenox] 40 mg SC QPM
Abnormal Lab Results
08/11/25 08/11/25
12:24 17:42
WBC 22.2 H 10^3/uL
(4.8-10.8)
RBC 4.25 L 10^6/uL
(4.70-6.10)
Hgb 12.1 L g/dL
(13.0-18.0)
Hct 38.6 L %
(39.0-52.0)
MCHC 31.3 L g/dL
(33.0-37.0)
MPV 10.6 H fL
(7.4-10.4)
Abs Immat Gran (auto) 0.5 H 10^3/uL
(0-0.05)
Absolute Neuts (auto) 18.5 H 10^3/uL
(1.4-6.5)
Absolute Monos (auto) 1.3 H 10^3/uL
(0.1-0.6)
Immature Gran % 2.3 H %
(0-0.5)
Neutrophils % 83.2 H %
(42.2-75.2)
Lymphocytes % 6.3 L %
(20.5-51.1)
ESR 96 H mm/hour
(0-20)
Sodium 134 L mmol/L
(135-145)
Glucose 210 H mg/dl
(70-99)
Calcium 8.3 L mg/dl
(8.4-10.2)
Alkaline Phosphatase 188 H U/L
(38-126)
Creatine Kinase < 20 L U/L
(55-170)
C-Reactive Protein > 270.00 H mg/L
(0.0-10.00)
Total Protein 6.0 L g/dl
(6.3-8.2)
Albumin 2.8 L g/dl
(3.5-5.0)
Ur Occult Blood Reflex 4+ A
(Negative)
Urine Urobilinogen 2+ A
(Neg - 1+)
Leukocyte Esterase Rfl 3+ A
(Negative)
Urine RBC 90-100 A /HPF
(0-2)
Urine WBC (Reflex) 80-90 A /HPF
(0-5)
Urine Bacteria (Reflex) Moderate A
(Negative)
Urine Albumin (Reflex) 3+ A
(Neg - Trace)
08/11/25 12:24
08/11/25 12:24
Vital Signs
Initial and Last Documented VS:
Initial Vital Signs
Temp Pulse Resp BP Pulse Ox
98.0 F 89 16 138/69 98
08/11/25 12:16 08/11/25 12:16 08/11/25 12:16 08/11/25 12:16 08/11/25 12:16
Last Documented Vital Signs
Temp Pulse Resp BP Pulse Ox
98.5 F 97 18 118/58 97
08/18/25 23:32 08/18/25 23:00 08/18/25 23:00 08/18/25 23:00 08/18/25 23:00
*Pulse Oximetry
SaO2: 96
Oxygen Mode of Delivery: Room air
Patient hypoxic: no
*Critical Care Note
Total Time (30-74mins, 75-104mins- exclusive of procedures): Not Applicable
ED Attending Note
-
Portions of this chart may have been created with voice recognition software.� Occasional wrong word or��sound alike� substitutions may have occurred due to the inherent limitations of voice recognition software.
Discharge Plan
Departure
Patient Disposition: Admit
Date of Disposition: 08/11/25
Time of Disposition: 18:40
Admit to: Med/Surg
Presentation/result/management discussed w/ accepting MD/DO: Hospitalist
Discharge Problem:
Leukocytosis, Acute leg pain, POSSIBLE UTi
Interventions
Interventions:
*General Assessment Last Done: 08/11/25 19:29
*Neglect/Abuse Screening Last Done: 08/11/25 12:16
*ED- Fall Risk Assessment Last Done: 08/11/25 15:19
*ED Influenza Vaccine History Last Done: 08/11/25 15:19
*Nursing Disposition Last Done: 08/11/25 20:53
Discharge Date and Time
Discharge Date/Time: 08/11/25 20:54
--- NOTE | 2025-08-11 18:54 | HPS.HSE ---
Family Physician
-
Family Physician: Tal Encarnacion
Chief Complaint
-
leukocytosis
History of Present Illness
This is a 70-year-old with past medical history significant for hypertension, BPH, status post TURP presenting to the emergency department with persistent leukocytosis, night sweats and myalgias.
Patient reported that he had a TURP in May. Starting about 2 weeks ago he has been complaining of weakness myalgias and tenderness in his bilateral lower extremities. He states that symptoms started in the feet and affects both his calf muscles
his thigh muscles on his hip muscles. Is not to the point where he has difficulty ambulating due to fatigue and weakness. He denies having any fevers or chills. He reports that he continues to have dysuria. He was treated with the Levaquin about
a week ago for a urinary tract infection. He was also evaluated in the emergency department for Lyme disease. The Lyme study was negative. He was placed on doxycycline 2 days ago for possible Lyme.
Patient reported that due to the pain he has been taking up to 4 g of Tylenol daily in addition to 600 mg of ibuprofen every 6 hours. He denies any swelling of his lower extremities. He denies any rash. He does report drenching night sweats. He
has no recent travel. He denies any shortness of breath cough nausea vomiting or diarrhea.
In the emergency department patient was afebrile, blood pressure was 138/69 with a pulse of 76 satting 98% on room air. Chest x-ray shows no acute infiltrate. No lymphadenopathy or hilar prominence.
UA remains positive for with leukocyte esterase WBCs and moderate bacteria. Had leukocytosis to 22 with otherwise normal hemoglobin and platelet count. Electrolytes were normal. BUN/creatinine were normal.
Recent CT of the abdomen 5 days ago showed: Circumferential urinary bladder wall thickening, which appears increased from previous examinations, although this may be in part due to the difference in bladder distention. Findings may be secondary to
an acute or chronic cystitis. Urothelial malignancy is not excluded and suggest direct visualization if not recently performed.
Medical History
Past Medical History
Past Medical History: Reports Other
Additional Past Medical History:
Hypertension
BPH
Past Surgical History: Reports Other
Additional Past Surgical History:
Cutaneous Cyst Excision
Social History
Tobacco: Former Smoker (Quit smoking 25 years ago.)
Alcohol: None
Drug: None
Personal:
Living: With Family
Family History
Family History: Other (Father: Longevity, CAD Mother: Rheumatic Fever / CHF)
Allergies / Home Medications
Allergies reflects when Allergies were last updated in [facility].
Home Medications with original date entered in [facility]
Allergy/Medication List:
Allergies
Allergy/AdvReac Type Severity Reaction Status Date / Time
No Known Allergies Allergy Verified 09/06/24 15:33
Home Medications
alfuzosin 10 mg tablet,extended release 24 hr 10 mg PO NOON 08/20/19
triamterene 37.5 mg-hydrochlorothiazide 25 mg tablet 1 tab PO DAILY 09/06/24
Review of Systems
-
EENT: Reports No Symptoms
Respiratory: Reports No Symptoms
Cardiac: Reports No Symptoms
Abdomen/GI: Reports No Symptoms
: Reports No Symptoms
Musculoskeletal: Reports Muscle Pain; Denies Joint Pain, Joint Swelling or Edema
Skin: Reports No Symptoms
Neurological: Reports Weakness; Denies Numbness
Endocrine: Reports No Symptoms
Hematologic/Lymphatic: Reports No Symptoms
Psych: Reports No Symptoms
Physical Exam
Vital Signs
Vital Signs
Temp Pulse Resp BP Pulse Ox
98.0 F 76 25 138/69 96
08/11/25 12:16 08/11/25 16:15 08/11/25 16:15 08/11/25 12:16 08/11/25 18:41
Physical Exam
General: Well Developed, Well Nourished and No Apparent Distress
HEENT: NormoCephalic, Moist mucous membranes and Atraumatic
Respiratory: Clear
Cardiac: S1/S2 and Regular Rhythm; No Murmur or Rub
GI: Soft, Non Tender, Non Distended and Normal Bowel Sounds; No Organomegaly
Rectal: Deferred by Provider
Musculoskeletal: No Clubbing, No Cyanosis and No Edema
Skin: No Rash
Neuro: AO x 3, No Motor Deficits, Nonfocal/grossly intact, Cranial Nerves Intact, No Sensory Deficits, DTR's Intact & Symmetrical and Other (mild bilateral lower extremity weakness)
Hematologic/Lymphatic: No Lymphadenopathy
Psych: Calm
Laboratory Results
-
08/11/25 12:24
08/11/25 12:24
Laboratory Results
Total Bilirubin 0.7 mg/dl (0.2-1.3) 08/11/25 12:24
AST 18 U/L (17-59) 08/11/25 12:24
ALT 26 U/L (0-50) 08/11/25 12:24
Alkaline Phosphatase 188 U/L (38-126) H 08/11/25 12:24
Data Reviewed
-
Diagnostic Radiology: Image Personally Visualized and interpreted and Report Reviewed by me
CT Scan: Report Reviewed by me
Lab Data: Labs Reviewed by me
Old Records: Reviewed
Impression/Plan
-
IMPRESSION:
70 y.o with h/o htn and bph s/p TURP in may coming in with ongoing dysuria, with myalgias of the bilateral lower extremity requiring q 6 hour ibuprofen and tylenol for the last 2 weeks. Exam is benign with mild bilateral lower extremity weakness
but no finds abnormal reflexes, fasciculations or tenderness to palpation. Lungs clear. Xray clear. U/A remains positive with significant leukocytosis. No documented fevers but has been on around the clock tylenol+Ibuprofen. Negative lyme
serology. Due to the leukocytosis and nightsweats send in by PMD for admission.
PLAN:
Leukocytosis - Recent turp with persistently positive u/a. WBC 22 with some immature cells. WBC has been rising since may. ESR is markedly elevated at 96. But no findings of joint inflammation. No wound/ulcer to suggest osteo. Recent CT a/p
5 days ago showing bladder wall thickening may be secondary to an acute or chronic cystitis though malignancy not entirely ruled out. U/A positive for infection and blood.
- admit to med/surg fo rnow
- blood and urine cultures sent
- will continue cefepime for now pending cultures
- given markedly elevated ESR and + constitutional signs (nightsweats), will get TTE now and await blood culture findings
- ID consultation in am
Myalgias - suspect secondary to underlying infection. No evidence of myopathy. Differential still includes CIDP vs PMR
- hold off on steroids for now
- treat infection as above
- hold statin
- if no improvement on IV abx or if negative culture findings, consider neuroconsultation
BPH s/p TURP
- continue finasteride/alpha blockade
PT consult
DVT PPX - lovneox sq
[2025-08-11 19:26] LABS: C-Reactive Protein > 270.00 mg/L (0.0-10.00)
[2025-08-11 19:30] VITALS: BP 130/68
[2025-08-11] MEDS: MAXIPIME 2000 MG IV (19:32)
[2025-08-11 21:11] VITALS: BP 154/71; BMI 28.7
--- NOTE | 2025-08-11 22:00 | PTCARENOTE ---
Reviewed home medications. Patient states no longer taking Alfuzosin and says that Finasteride is 'on hold.'
[2025-08-11] MEDS: ULTRAM 50 MG PO (22:10)
[2025-08-11] MEDS: CELEBREX PO (22:17)
[2025-08-11 23:22] VITALS: BP 149/74
[2025-08-12] MEDS: MAXIPIME 1000 MG IV ×4 (02:55→21:34)
[2025-08-12] MEDS: STERILE WATER FOR INJECTION 10 ML IV ×4 (02:55→21:34)
[2025-08-12] MEDS: TYLENOL 650 MG PO ×2 (02:58→19:18)
[2025-08-12] MEDS: ULTRAM 50 MG PO ×3 (04:10→23:25)
[2025-08-12 07:07] VITALS: BP 152/68
[2025-08-12 08:35] LABS: Hematocrit 34.5 % (39.0-52.0); Hemoglobin 11.1 g/dL (13.0-18.0); Mean Corp Hgb Conc. 32.2 g/dL (33.0-37.0); Mean Corpuscular Volume 86.9 fL (80.0-94.0); Platelet Count 330 10^3/uL (130-400); Red Cell Dist. Width 13.6 % (11.5-14.5)
[2025-08-12 08:55] LABS: Blood Urea Nitrogen 18 mg/dl (9-20); Calcium 8.2 mg/dl (8.4-10.2); Carbon Dioxide 25 mmol/L (22-30); Chloride 103 mmol/L (98-107); Estimated Creatinine Clearance 91 ml/min; Glucose 139 mg/dl (70-99); Magnesium 2.1 mg/dl (1.6-2.3); Potassium 4.3 mmol/L (3.5-5.1); Sodium 132 mmol/L (135-145); eGFR > 60.00
[2025-08-12] MEDS: CELEBREX 200 MG PO ×2 (09:00→19:18)
[2025-08-12] MEDS: NORVASC 5 MG PO (09:00)
--- NOTE | 2025-08-12 09:05 | W.PN.HOSP.TC ---
Today's Communication/Plan
-
Continue antibiotics
MRI Lumbar Spine
See plan
Assessment / Plan
Assessment / Plan
Physical Exam
General: Not in acute distress
HEENT: Normocephalic, Moist mucous membranes and Atraumatic
Respiratory: Clear to Auscultation Bilaterally
Cardiac: S1/S2 and Regular Rhythm
GI: Soft, Non Tender, Non Distended and Normal Bowel Sounds
Musculoskeletal: No Cyanosis and No Edema
Skin: Warm. Dry.
Neuro: AAO x 3, No Motor Deficits, Nonfocal/grossly intact, Cranial Nerves Intact, No Sensory Deficits, DTR's Intact & Symmetrical and Other (mild bilateral lower extremity weakness)
Psych: Calm
Assessment/Plan
70-year-old male with past medical history significant for hypertension, BPH, status post TURP in May 2025 presented to the emergency department with persistent leukocytosis, night sweats and myalgias. Patient reported that he had a TURP in
May 2025. Starting about 2 weeks prior to presentation, he had been complaining of weakness myalgias and tenderness in his bilateral lower extremities. He states that symptoms started in the feet and affected both his calf muscles his thigh
muscles on his hip muscles. He did report having drenching sweats. He denied having any fevers or chills. He reported that he continues to have dysuria. He was treated with the Levaquin about a week prior to presentation for a urinary tract
infection. He was also evaluated in the emergency department for Lyme disease, and The Lyme study was negative. He was placed on doxycycline 2 days ago for possible Lyme. Patient reported that due to the pain he has been taking up to 4 g of
Tylenol daily in addition to 600 mg of ibuprofen every 6 hours. He denied any swelling of his lower extremities. He denied any rash. He denied any shortness of breath cough nausea vomiting or diarrhea. In the emergency department patient was
afebrile, blood pressure was 138/69 with a pulse of 76 satting 98% on room air. Chest x-ray showed no acute infiltrate. No lymphadenopathy or hilar prominence. UA remained positive for with leukocyte esterase WBCs and moderate bacteria. Had
leukocytosis to 22 with otherwise normal hemoglobin and platelet count. Electrolytes were normal. BUN/creatinine were normal. Recent CT of the abdomen 5 days ago showed: Circumferential urinary bladder wall thickening, which appears increased from
previous examinations, although this may be in part due to the difference in bladder distention. Findings may be secondary to an acute or chronic cystitis. Urothelial malignancy is not excluded and suggest direct visualization if not recently
performed.
Leukocytosis
- Recent turp with persistently positive u/a. WBC 22 with some immature cells. WBC has been rising since may. ESR is markedly elevated at 96. But no findings of joint inflammation. No wound/ulcer to suggest osteo. Recent CT a/p 5 days ago
showing bladder wall thickening may be secondary to an acute or chronic cystitis though malignancy not entirely ruled out. U/A positive for infection and blood.
- blood and urine cultures sent
- will continue cefepime for now pending cultures
- given markedly elevated ESR and + constitutional signs (nightsweats), obtain TTE
- Check Quantiferon TB test
- MRI Lumbar Spine
- ID consultation in am
Myalgias
- suspect secondary to underlying infection. No evidence of myopathy. Differential still includes CIDP vs PMR
- hold off on steroids for now
- treat infection as above
- hold statin
- MRI Lumbar Spine
- if no improvement on IV abx or if negative culture findings, consider neuroconsultation
BPH s/p TURP
- Patient said he is not longer taking flomax and proscar
PT consult
DVT Prophylaxis: Lovenox subq
Anticipated Discharge: > 48 hours
Subjective/Interval History
-
Date of Service: August 12, 2025
Patient was seen and examined. He reported still not feeling well.
Objective Data
-
Labs:
Laboratory Results
08/12/25
08:05
WBC 20.1 H
Hgb 11.1 L
Hct 34.5 L
Plt Count 330
Sodium 132 L
Potassium 4.3
Chloride 103
Carbon Dioxide 25
BUN 18
Creatinine 0.8
Glucose 139 H
Calcium 8.2 L
Vital Signs:
Vital Signs
Temp Pulse Resp BP Pulse Ox
98.9 F 84 16 152/68 98
08/12/25 07:07 08/12/25 09:00 08/12/25 07:07 08/12/25 09:00 08/12/25 07:07
I&O
08/11/25 08/12/25 08/13/25
06:59 06:59 06:59
Intake Total 480 / 480
Output Total 875 / 875
Balance -395 / -395
[2025-08-12 10:16] LABS: Ferritin 1280.0 ng/ml (17.9-464.0)
[2025-08-12 12:30] VITALS: BP 141/68; PULSE 83; O2SAT 97
--- NOTE | 2025-08-12 12:59 | PTOTSP ---
Educated patient on ambulating throughout the day in hallway with RN permission to maintain functional mobility and for deep breathing; verbalized understanding.
Patient does not demonstrate further need for skilled therapy and will be discharged at this time. If needs change, please re-consult.
--- NOTE | 2025-08-12 13:09 | CON.ID ---
Consultation
-
Date/Time Consultation Requested: 08/11/25 22:14
Date/Time Consultation Performed: 08/12/25 13:10
Requesting Provider: Dr Kohler
Performing Provider: Dr Romano
Reason for Consultation: leukocytosis with persistent pyuria+bacteruria
Chief Complaint / Past History
Chief Complaint
leukocytosis
History of Present Illness
Mr Lopez is a 70 year old male without significant history who presented here yesterday for about 2 weeks of weakness, myalgias, tenderness in the bilateral lower extremities and 3 days of night sweats. He is not having difficulty ambulating. He
reports that he has been taking 4 gm of tylenol and 600 mg of ibuprofen q 6 hours. He has had a recent course of levaquin for a urinary tract infection; additionally he was started on doxycycline for possible lyme infection. Lyme serology was
negative.
In the ER the patient was found to have WBC 22.2, hgb 12, plt 349, L shift, Na 134, cr 0.9, ferritin 1280, CK <20, CRP>270, lyme serology on 08/06 was negative, UA with 80-90 wbc/hpf and 90-100 RBCs per hpf, 08/06 CT of abdomen and pelvis with
bladder wall thickening urothelial malignancy cannot be excluded, CXR without evidence of tuberculosis, blood cultures x2 are in progress, urine culture is finalized negative.
Past History
Additional Past Medical History:
Hypertension
BPH
Additional Past Surgical History:
Cutaneous Cyst Excision
Allergy History:
No Known Allergies Allergy (Verified 08/11/25 12:17)
Medications Reviewed: Yes
Social History
Tobacco: Former Smoker (quit smoking 25 years ago)
Alcohol: None
Drug: None
Family History
Family History: Not Pertinent
Review of Systems
Review of Systems
as per hpi
Vital Signs
Temp Pulse Resp BP Pulse Ox
98.9 F 84 16 152/68 98
08/12/25 07:07 08/12/25 09:00 08/12/25 07:07 08/12/25 09:00 08/12/25 09:00
Physical Exam
Physical Exam
Constitutional: No Acute Distress
Cardiovascular: Regular Rate and S1/S2; Negative Murmur or Rub
Pulmonary: Clear and Symmetric; Negative Wheezes, Rales or Rhonchi
Gastrointestinal: Soft, Non Tender, Non Distended and Normal Bowel Sounds
Skin: Warm and Dry; Negative Rash or Jaundice
Neurological: Other (strength 5/5 in the bilateral lower extremities at the hips and knees)
Lab / Diagnostic Study Results
08/12/25 08:05
08/12/25 08:05
Abs Immat Gran (auto) 0.5 10^3/uL (0-0.05) H 08/11/25 12:24
Absolute Neuts (auto) 18.5 10^3/uL (1.4-6.5) H 08/11/25 12:24
Absolute Lymphs (auto) 1.4 10^3/uL (1.2-3.4) 08/11/25 12:24
Absolute Monos (auto) 1.3 10^3/uL (0.1-0.6) H 08/11/25 12:24
Absolute Basos (auto) 0.1 10^3/uL (0-0.2) 08/11/25 12:24
Immature Gran % 2.3 % (0-0.5) H 08/11/25 12:24
Neutrophils % 83.2 % (42.2-75.2) H 08/11/25 12:24
Lymphocytes % 6.3 % (20.5-51.1) L 08/11/25 12:24
Monocytes % 6.0 % (1.7-9.3) 08/11/25 12:24
Eosinophils % 1.9 % (0-6) 08/11/25 12:24
Basophils % 0.3 % (0-2) 08/11/25 12:24
ESR 96 mm/hour (0-20) H 08/11/25 12:24
C-Reactive Protein > 270.00 mg/L (0.0-10.00) H 08/11/25 12:24
Ur Squamous Epith Cells 3-5 /LPF (Few) 08/11/25 17:42
Microbiology Results
Micro:
08/11/25 17:42 Urine Culture - Final
Urine NO GROWTH
08/12/25 08:05 Blood Culture - Pending
Blood/Venous
08/11/25 15:55 Blood Culture - Pending
Blood/Venous
Assessment / Plan
Leukocytosis
Night Sweats
Bilateral Leg pain myalgais and arthralgias
- QFT gold
- TTE pending
- MRI lumbar spine
- blood cultures x2 are in progress
- urine culture is negative
- could consider muscle biopsy if above workup not revealing
[2025-08-12 15:08] VITALS: BP 151/69
--- NOTE | 2025-08-12 15:52 | CM ---
Initial assessment completed. Patient is a 70-year-old with past medical history significant for hypertension, BPH, status post TURP presenting to the emergency department with persistent leukocytosis, night sweats and myalgias.
Patient resides w/ spouse and his mother in law in a single story home, 3 steps to enter from the outside. Patient is independent w/ ambulation, no device required. Patient is independent w/ ADLs and personal care. No DME reported. No SNF/HC hx.
Address, point of contact and insurance verified
PCP: Tal Encarnacion
Pharmacy: [facility] [place]
Therapy assessed patient, no skilled needs at d/c
Plan: Home, no needs
[2025-08-12 17:59] VITALS: BMI 28.7
[2025-08-12 23:00] VITALS: BP 117/58
[2025-08-13] MEDS: TYLENOL 650 MG PO ×2 (02:34→21:00)
[2025-08-13] MEDS: MAXIPIME 1000 MG IV ×4 (03:15→21:00)
[2025-08-13] MEDS: STERILE WATER FOR INJECTION 10 ML IV ×4 (03:15→21:01)
--- NOTE | 2025-08-13 03:50 | PTCARENOTE ---
Temp was 100.5 at 1930 last night which resolved w/ Tylenol. Patient's urine was tea colored x 2. He complains of dysuria. He slept majority of the shift after his left around 8pm. Messaged [employer] via TT to inquire if additional urine or labs could
be ordered. (UA & culture collected in ED 08/11) [employer]PER ordered repeat urine sample w/ reflex to cx.
--- NOTE | 2025-08-13 04:11 | W.PN.UPDATE ---
Update Note
Progress Note Update
RN reports patient c/o dysuria, tea colored urine, temp of 100.5 earlier at night resolved with Tylenol. will recheck UA again.
--- NOTE | 2025-08-13 08:15 | W.PN.HOSP.TC ---
Today's Communication/Plan
-
Continue antibiotics
Follow cultures
Assessment / Plan
Assessment / Plan
Physical Exam
General: Not in acute distress
HEENT: Normocephalic, Moist mucous membranes and Atraumatic
Respiratory: Clear to Auscultation Bilaterally
Cardiac: S1/S2 and Regular Rhythm
GI: Soft, Non Tender, Non Distended and Normal Bowel Sounds
Musculoskeletal: No Cyanosis and No Edema
Skin: Warm. Dry.
Neuro: AAO x 3, No Motor Deficits, Nonfocal/grossly intact, Cranial Nerves Intact, No Sensory Deficits, DTR's Intact & Symmetrical and Other (mild bilateral lower extremity weakness)
Psych: Calm
Assessment/Plan
70-year-old male with past medical history significant for hypertension, BPH, status post TURP in May 2025 presented to the emergency department with persistent leukocytosis, night sweats and myalgias. Patient reported that he had a TURP in
May 2025. Starting about 2 weeks prior to presentation, he had been complaining of weakness myalgias and tenderness in his bilateral lower extremities. He states that symptoms started in the feet and affected both his calf muscles his thigh
muscles on his hip muscles. He did report having drenching sweats. He denied having any fevers or chills. He reported that he continues to have dysuria. He was treated with the Levaquin about a week prior to presentation for a urinary tract
infection. He was also evaluated in the emergency department for Lyme disease, and The Lyme study was negative. He was placed on doxycycline 2 days ago for possible Lyme. Patient reported that due to the pain he has been taking up to 4 g of
Tylenol daily in addition to 600 mg of ibuprofen every 6 hours. He denied any swelling of his lower extremities. He denied any rash. He denied any shortness of breath cough nausea vomiting or diarrhea. In the emergency department patient was
afebrile, blood pressure was 138/69 with a pulse of 76 satting 98% on room air. Chest x-ray showed no acute infiltrate. No lymphadenopathy or hilar prominence. UA remained positive for with leukocyte esterase WBCs and moderate bacteria. Had
leukocytosis to 22 with otherwise normal hemoglobin and platelet count. Electrolytes were normal. BUN/creatinine were normal. Recent CT of the abdomen 5 days ago showed: Circumferential urinary bladder wall thickening, which appears increased from
previous examinations, although this may be in part due to the difference in bladder distention. Findings may be secondary to an acute or chronic cystitis. Urothelial malignancy is not excluded and suggest direct visualization if not recently
performed.
Leukocytosis
- Recent turp with persistently positive u/a. WBC 22 with some immature cells. WBC has been rising since may. ESR is markedly elevated at 96. But no findings of joint inflammation. No wound/ulcer to suggest osteo. Recent CT a/p 5 days ago
showing bladder wall thickening may be secondary to an acute or chronic cystitis though malignancy not entirely ruled out. U/A positive for infection and blood.
- blood cultures with NGTD
- Urine culture with no growth
- Continue Cefepime
- given markedly elevated ESR and + constitutional signs (nightsweats), checked TTE --> no vegetations
- Quantiferon TB test result is pending
- MRI Lumbar Spine noted, mainly degenerative changes
- ID consultation appreciated
Myalgias
- suspect secondary to underlying infection. No evidence of myopathy. Differential still includes CIDP vs PMR
- hold off on steroids for now
- treat infection as above
- hold statin
- if no improvement on IV abx or if negative culture findings, consider neuroconsultation
BPH s/p TURP
- Patient said he is not longer taking flomax and proscar
PT consult
DVT Prophylaxis: Lovenox subq
Anticipated Discharge: > 48 hours
Subjective/Interval History
-
Date of Service: August 13, 2025
Patient was seen and examined. He reported feeling okay this morning.
Objective Data
-
Labs:
Laboratory Results
08/13/25
06:00
WBC Pending
Hgb Pending
Hct Pending
Plt Count Pending
Sodium Pending
Potassium Pending
Chloride Pending
Carbon Dioxide Pending
BUN Pending
Creatinine Pending
Glucose Pending
Calcium Pending
Total Bilirubin Pending
AST Pending
ALT Pending
Alkaline Phosphatase Pending
Vital Signs:
Vital Signs
Temp Pulse Resp BP Pulse Ox
97.4 F 76 18 117/58 95
08/12/25 23:00 08/12/25 23:00 08/12/25 23:00 08/12/25 23:00 08/12/25 23:00
I&O
08/12/25 08/13/25 08/14/25
06:59 06:59 06:59
Intake Total 480 / 480 400 / 400
Output Total 875 / 875 325 / 325
Balance -395 / -395 75 / 75
[2025-08-13] MEDS: NORVASC 5 MG PO (08:28)
[2025-08-13] MEDS: CELEBREX 200 MG PO ×2 (08:28→19:30)
[2025-08-13 08:40] VITALS: BP 148/71
[2025-08-13] MEDS: ULTRAM 50 MG PO ×3 (08:43→22:31)
[2025-08-13] MEDS: NSS (PRESERVATIVE FREE) 0.125 ML IV (08:58)
[2025-08-13] MEDS: ATIVAN 0.25 MG IV (08:58)
[2025-08-13 09:18] LABS: Hematocrit 37.3 % (39.0-52.0); Hemoglobin 11.8 g/dL (13.0-18.0); Mean Corp Hgb Conc. 31.6 g/dL (33.0-37.0); Mean Corpuscular Volume 89.0 fL (80.0-94.0); Nucleated Red Blood Cells % 0 % (-); Platelet Count 360 10^3/uL (130-400); Red Cell Dist. Width 13.7 % (11.5-14.5)
[2025-08-13 10:07] LABS: ALT (SGPT) 19 U/L (0-50); AST (SGOT) 21 U/L (17-59); Albumin 2.6 g/dl (3.5-5.0); Alkaline Phosphatase 163 U/L (38-126); Blood Urea Nitrogen 21 mg/dl (9-20); Calcium 8.2 mg/dl (8.4-10.2); Carbon Dioxide 27 mmol/L (22-30); Chloride 100 mmol/L (98-107); Estimated Creatinine Clearance 104 ml/min; Glucose 206 mg/dl (70-99); Potassium 4.5 mmol/L (3.5-5.1); Sodium 134 mmol/L (135-145); Total Protein 5.7 g/dl (6.3-8.2); eGFR > 60.00
[2025-08-13 11:00] LABS: Urine Character Cloudy (Clear)
[2025-08-13 11:38] LABS: Urine Red Blood Cell >100 /HPF (0-2); Urine White Cell 40-50 /HPF (0-5)
[2025-08-13 15:00] VITALS: BP 137/64
[2025-08-13] MEDS: FLUSH (NSS) 1 FLUSH IV (16:18)
--- NOTE | 2025-08-13 16:44 | W.PN.ID1 ---
Date of Service
Date of Service: August 13, 2025
Today's Communication
continue cefepime
follow blood cultures
Assessment / Plan
Leukocytosis
Night Sweats
Bilateral Leg pain myalgais and arthralgias
- QFT gold - pending
- TTE no evidence of endocarditis
- MRI lumbar spine - most consistent with degenerative changes, if the leukocytosis and night sweats were caused by discitis/osteomyelitis would expect more florid changes rather than the early changes described here; additionally note that
- blood cultures x2 are in progress no growth to date
- urine culture is negative
- continue cefepime pending blood cultures
- could consider muscle biopsy if above workup not revealing
Chief Complaint
-: Leukocytosis
Subjective / Review of Systems
afebrile
bp stable
Vital Signs / Physical Exam
Vital Signs
Vital Signs
Temp Pulse Resp BP Pulse Ox
98 F 83 16 137/64 97
08/13/25 15:00 08/13/25 15:00 08/13/25 15:00 08/13/25 15:00 08/13/25 15:00
Physical Exam
Constitutional: No Acute Distress
Cardiovascular: Regular Rate and S1/S2; Negative Murmur or Rub
Pulmonary: Clear and Symmetric; Negative Wheezes or Rales
Gastrointestinal: Soft, Non Tender, Non Distended and Normal Bowel Sounds
Skin: Warm and Dry; Negative Rash or Jaundice
Objective Data
Lab Data
Lab Results
08/13/25 08:56
08/13/25 08:56
ESR 96 mm/hour (0-20) H 08/11/25 12:24
Estimated Creat Clear 104 ml/min 08/13/25 08:56
Total Bilirubin 0.7 mg/dl (0.2-1.3) 08/13/25 08:56
AST 21 U/L (17-59) 08/13/25 08:56
ALT 19 U/L (0-50) 08/13/25 08:56
Alkaline Phosphatase 163 U/L (38-126) H 08/13/25 08:56
C-Reactive Protein > 270.00 mg/L (0.0-10.00) H 08/11/25 12:24
Most recent labs reviewed.
Micro Results:
08/11/25 15:55 Blood Culture - Preliminary
Blood/Venous No Growth in 48 hours- Final report to follow
08/13/25 10:24 Urine Culture - Pending
Urine
08/12/25 08:05 Blood Culture - Preliminary
Blood/Venous No Growth in 24 hours- Final report to follow
08/11/25 17:42 Urine Culture - Final
Urine NO GROWTH
[2025-08-13 23:05] VITALS: BP 140/67
[2025-08-14] MEDS: STERILE WATER FOR INJECTION 10 ML IV ×4 (03:47→20:51)
[2025-08-14] MEDS: MAXIPIME 1000 MG IV ×4 (03:47→20:50)
[2025-08-14] MEDS: ULTRAM 50 MG PO (04:34)
[2025-08-14] MEDS: TYLENOL 650 MG PO ×3 (05:46→16:52)
[2025-08-14 06:50] VITALS: BP 129/66
[2025-08-14 07:59] LABS: Hematocrit 32.7 % (39.0-52.0); Hemoglobin 10.6 g/dL (13.0-18.0); Mean Corp Hgb Conc. 32.4 g/dL (33.0-37.0); Mean Corpuscular Volume 88.4 fL (80.0-94.0); Platelet Count 341 10^3/uL (130-400); Red Cell Dist. Width 13.8 % (11.5-14.5)
[2025-08-14 08:16] LABS: ALT (SGPT) 19 U/L (0-50); AST (SGOT) 18 U/L (17-59); Albumin 2.2 g/dl (3.5-5.0); Alkaline Phosphatase 175 U/L (38-126); Blood Urea Nitrogen 23 mg/dl (9-20); Calcium 7.9 mg/dl (8.4-10.2); Carbon Dioxide 27 mmol/L (22-30); Chloride 101 mmol/L (98-107); Estimated Creatinine Clearance 91 ml/min; Glucose 175 mg/dl (70-99); Potassium 4.1 mmol/L (3.5-5.1); Sodium 131 mmol/L (135-145); Total Protein 5.2 g/dl (6.3-8.2); eGFR > 60.00
[2025-08-14 09:03] LABS: Nucleated Red Blood Cells % 0 % (-)
[2025-08-14] MEDS: CELEBREX 200 MG PO ×2 (10:48→20:50)
[2025-08-14] MEDS: NORVASC 5 MG PO (10:49)
[2025-08-14] MEDS: FLUSH (NSS) 2 FLUSH IV (10:53)
--- NOTE | 2025-08-14 11:52 | W.PN.HOSP.TC ---
Today's Communication/Plan
-
See plan
Assessment / Plan
Assessment / Plan
Physical Exam
General: Not in acute distress
HEENT: Normocephalic, Moist mucous membranes and Atraumatic
Respiratory: Clear to Auscultation Bilaterally
Cardiac: S1/S2 and Regular Rhythm
GI: Soft, Non Tender, Non Distended and Normal Bowel Sounds
Musculoskeletal: No Cyanosis and No Edema
Skin: Warm. Dry.
Neuro: AAO x 3, No Motor Deficits, Nonfocal/grossly intact, Cranial Nerves Intact, No Sensory Deficits, DTR's Intact & Symmetrical and Other (mild bilateral lower extremity weakness)
Psych: Calm
Assessment/Plan
70-year-old male with past medical history significant for hypertension, BPH, status post TURP in May 2025 presented to the emergency department with persistent leukocytosis, night sweats and myalgias. Patient reported that he had a TURP in
May 2025. Starting about 2 weeks prior to presentation, he had been complaining of weakness myalgias and tenderness in his bilateral lower extremities. He states that symptoms started in the feet and affected both his calf muscles his thigh
muscles on his hip muscles. He did report having drenching sweats. He denied having any fevers or chills. He reported that he continues to have dysuria. He was treated with the Levaquin about a week prior to presentation for a urinary tract
infection. He was also evaluated in the emergency department for Lyme disease, and The Lyme study was negative. He was placed on doxycycline 2 days ago for possible Lyme. Patient reported that due to the pain he has been taking up to 4 g of
Tylenol daily in addition to 600 mg of ibuprofen every 6 hours. He denied any swelling of his lower extremities. He denied any rash. He denied any shortness of breath cough nausea vomiting or diarrhea. In the emergency department patient was
afebrile, blood pressure was 138/69 with a pulse of 76 satting 98% on room air. Chest x-ray showed no acute infiltrate. No lymphadenopathy or hilar prominence. UA remained positive for with leukocyte esterase WBCs and moderate bacteria. Had
leukocytosis to 22 with otherwise normal hemoglobin and platelet count. Electrolytes were normal. BUN/creatinine were normal. Recent CT of the abdomen 5 days ago showed: Circumferential urinary bladder wall thickening, which appears increased from
previous examinations, although this may be in part due to the difference in bladder distention. Findings may be secondary to an acute or chronic cystitis. Urothelial malignancy is not excluded and suggest direct visualization if not recently
performed.
Leukocytosis
- Recent turp with persistently positive u/a. WBC 22 with some immature cells. WBC has been rising since may. ESR is markedly elevated at 96. But no findings of joint inflammation. No wound/ulcer to suggest osteo.
Recent CT a/p 5 days ago showing bladder wall thickening may be secondary to an acute or chronic cystitis though malignancy not entirely ruled out. U/A positive for infection and blood.
- Blood cultures with NGTD
- Urine culture with no growth
- Repeat urine culture was done also showing no growth
- Continue Cefepime
- Given markedly elevated ESR and + constitutional signs (nightsweats), checked TTE --> no vegetations
- Quantiferon TB test result is pending
- MRI Lumbar Spine noted, mainly degenerative changes
- ID consultation appreciated
- Since patient reporting dark urine, persistent on and off dysuria, repeat UA still with hematuria and pyuria, and given the fact that the CT Abdomen Pelvis done on 08/06/25 could not exclude bladder cancer or some other
process, and given his constitutional symptoms, ordered renal/bladder ultrasound and consulted urology
Circumferential Bladder Wall Thickening
- Could be UTI, but cannot rule out malignancy -- please see above
Myalgias
- Suspect secondary to underlying infection. No evidence of myopathy. Differential still includes CIDP vs PMR
- hold off on steroids for now
- treat infection as above
- hold statin
- if no improvement on IV abx or if negative culture findings, consider neuroconsultation
- MRI Lumbar Spine results do not explain his weakness and myalgias
BPH status post TURP
- Patient no longer Flomax and Proscar
DVT Prophylaxis: Lovenox subq
Anticipated Discharge: > 48 hours
Subjective/Interval History
-
Date of Service: August 14, 2025
Patient was seen and examined. He still reported the same symptoms he came in with, still not much improved. Urine is dark brown colored.
Objective Data
-
Labs:
Laboratory Results
08/14/25
07:31
WBC 26.3 H
Hgb 10.6 L
Hct 32.7 L
Plt Count 341
Sodium 131 L
Potassium 4.1
Chloride 101
Carbon Dioxide 27
BUN 23 H
Creatinine 0.8
Glucose 175 H
Calcium 7.9 L
Total Bilirubin 0.7
AST 18
ALT 19
Alkaline Phosphatase 175 H
Vital Signs:
Vital Signs
Temp Pulse Resp BP Pulse Ox
98.2 F 85 16 129/66 95
08/14/25 06:50 08/14/25 06:50 08/14/25 06:50 08/14/25 06:50 08/14/25 06:50
I&O
08/13/25 08/14/25 08/15/25
06:59 06:59 06:59
Intake Total 400 / 400 720 / 720
Output Total 325 / 325 280 / 280
Balance 75 / 75 440 / 440
[2025-08-14 15:00] VITALS: BP 152/62
[2025-08-14 23:00] VITALS: BP 148/67
[2025-08-15] MEDS: TYLENOL 650 MG PO ×5 (01:59→20:35)
[2025-08-15] MEDS: STERILE WATER FOR INJECTION 10 ML IV ×4 (04:55→21:46)
[2025-08-15] MEDS: MAXIPIME 1000 MG IV ×4 (04:56→21:47)
[2025-08-15 07:05] VITALS: BP 134/67
[2025-08-15 08:06] LABS: Hematocrit 32.6 % (39.0-52.0); Hemoglobin 10.8 g/dL (13.0-18.0); Mean Corp Hgb Conc. 33.1 g/dL (33.0-37.0); Mean Corpuscular Volume 88.1 fL (80.0-94.0); Platelet Count 401 10^3/uL (130-400); Red Cell Dist. Width 13.9 % (11.5-14.5)
[2025-08-15] MEDS: NORVASC 5 MG PO (08:20)
[2025-08-15] MEDS: CELEBREX 200 MG PO ×2 (08:20→20:34)
[2025-08-15 08:35] LABS: ALT (SGPT) 18 U/L (0-50); AST (SGOT) 18 U/L (17-59); Albumin 2.4 g/dl (3.5-5.0); Alkaline Phosphatase 195 U/L (38-126); Blood Urea Nitrogen 19 mg/dl (9-20); Calcium 8.0 mg/dl (8.4-10.2); Carbon Dioxide 28 mmol/L (22-30); Chloride 102 mmol/L (98-107); Estimated Creatinine Clearance 91 ml/min; GGTP 116 U/L (15-73); Glucose 151 mg/dl (70-99); Potassium 4.2 mmol/L (3.5-5.1); Sodium 134 mmol/L (135-145); Total Protein 5.4 g/dl (6.3-8.2); eGFR > 60.00
--- NOTE | 2025-08-15 08:36 | CONS.URO ---
Consultation
-
Date/Time Consultation Performed: 08/15/25804
Performing Provider: Oli
Reason for Consultation: post-TURP
Medical History
History of Present Illness
Exerpt of admission note: 'about 2 weeks ago he has been complaining of weakness myalgias and tenderness in his bilateral lower extremities. He states that symptoms started in the feet and affects both his calf muscles his thigh muscles on his hip
muscles. Is not to the point where he has difficulty ambulating due to fatigue and weakness. He denies having any fevers or chills. He reports that he continues to have dysuria. He was treated with the Levaquin about a week ago for a urinary
tract infection.'
He was also evaluated in the emergency department last week including a CT scan of A &P.
Was seen by Dr Toro as an outpatient and at time of ED visit.
Past Medical History
Past Medical History: HTN
Past Surgical History: Urological (TURP 05/2025;) and Other (cutaneous neoplasm excision)
Allergies/Home Medications
Allergies
Allergy/AdvReac Type Severity Reaction Status Date / Time
No Known Allergies Allergy Verified 08/11/25 12:17
Home Medications
�Medication �Instructions �Recorded �Confirmed �Type
amlodipine 5 mg tablet 5 mg PO Blood Pressure 08/11/25 History
celecoxib 200 mg capsule 200 mg PO BID Pain 08/11/25 08/11/25 History
finasteride 5 mg tablet 5 mg PO BPH 08/11/25 History
rosuvastatin 5 mg tablet 5 mg PO DAILY High Cholesterol 08/11/25 08/11/25 History
Physical Exam
Vital Signs
Vital Signs
Temp Pulse Resp BP Pulse Ox
98.1 F 84 18 134/67 97
08/15/25 07:05 08/15/25 08:20 08/15/25 07:05 08/15/25 08:20 08/15/25 07:05
Lab / Testing Results
Laboratory Results
08/15/25 07:34
08/15/25 07:34
Physical Exam
adult male in bed
General: Well Nourished and No Apparent Distress
GI: Soft, Non Tender and Non Distended
Genito-urinary: Other (normal phallus, scrotum, testes, epididymidies)
Skin: Warm
Neuro: Awake and Alert
Psych: Calm
Assessment / Plan
-
ongoing leukocytosis and symptoms of unknown etiology
negative urine culture
aside from temporal relationship, this is scant evidence to suggest tract is origin of current condition
[2025-08-15 09:04] LABS: Nucleated Red Blood Cells % 0 % (-)
--- NOTE | 2025-08-15 11:14 | W.PN.HOSP.TC ---
Addendum entered and electronically signed by Laron Ramey MD 08/15/25 11:19:
#Elevated alk.phos
GGT elevated but no RUQ tenderness. recent CT without acute biliary changes
#L4-L5 there is resultant mild/moderate right-sided neuroforaminal narrowing and severe left-sided neuroforaminal narrowing
Tylenol, recommend PT
#mild edema at the of the L4-L5 endplates
likely DJD, rather then OM/diskitis with no significant new back pain
Original Note:
Today's Communication/Plan
-
US testicular
Assessment / Plan
Assessment / Plan
70yo M with PMHx of HLD, BPH s/p TURP came with pain in b/l LE started after his TURBT. CT abd/pelvis dose before current admission showed some signs of urinary bladder wall thickening. With leukocytosis concern for UTI so started on cefepime.
Bedside patient reports pain to start from his R gron and radiating to the testicle and only then - traveling down the legs. R testicle tender to touch.
A/P:
#Concern for epididymitis/prostatitis
Ucx ntd
check GC and chlam PCR
cont Abx as per ID
US testicular
Bcx NTD
follow WBC and fever curve
Urology consult: no concern for postOP complications
#b/l LE weakness
patient reports it as a radiating feeling from groin
CPK WNL
check WILBUR, RF, CCP, aldolase
#Essential HTN
#HLD
cont home meds
DVT ppx lovenox
Full code
I have spent at least 55min reviewing chart, test results, communication with consulthants and providing direct patient care
Anticipated Discharge: > 48 hours
Subjective/Interval History
-
Date of Service: August 15, 2025
Objective Data
-
Labs:
Laboratory Results
10/27/25
07:34
WBC 29.3 H
Hgb 10.8 L
Hct 32.6 L
Plt Count 401 H
Sodium 134 L
Potassium 4.2
Chloride 102
Carbon Dioxide 28
BUN 19
Creatinine 0.8
Glucose 151 H
Calcium 8.0 L
Total Bilirubin 0.6
AST 18
ALT 18
Alkaline Phosphatase 195 H
Vital Signs:
Vital Signs
Temp Pulse Resp BP Pulse Ox
98.1 F 84 18 134/67 97
08/15/25 07:05 08/15/25 08:20 08/15/25 07:05 08/15/25 08:20 08/15/25 07:05
I&O
08/14/25 08/15/25 08/16/25
06:59 06:59 06:59
Intake Total 720 / 720 570 / 570
Output Total 280 / 280 300 / 300
Balance 440 / 440 270 / 270
Review of Systems
-
History Source: Patient
All other systems: Reviewed and negative
Genitourinary: Reports Other (see note)
Physical Exam
-
General: No Apparent Distress and Comfortable
GI: Soft, Nontender and Nondistended
Genito-urinary: Other (R testicular trenderness)
Musculoskeletal: No Clubbing, No Cyanosis and No Edema
Neuro: Awake, Alert, Oriented and AO x 3
Psych: Calm
[2025-08-15 11:27] LABS: Rheumatoid Agglutinin Less Than 10 IU (<10 IU)
--- NOTE | 2025-08-15 12:18 | CM ---
Chart reviewed. Care ongoing.
Cont IV abx per ID
Therapy has no skilled needs at d/c
CM will cont to follow for d/c needs
Plan: Home, no needs at this time
--- NOTE | 2025-08-15 14:38 | W.PN.ID1 ---
Date of Service
Date of Service: August 15, 2025
Today's Communication
Continue cefepime for today.
Assessment / Plan
Leukocytosis; rising
Night Sweats (without fever)
Bilateral Leg pain myalgaias and arthralgias
Elevated ESR / CRP
Recommendations:
- QFT gold -indeterminant
- TTE with evidence of endocarditis
- MRI lumbar spine - most consistent with degenerative changes.
- blood cultures x2; no growth to date
- urine culture is negative
- continue cefepime pending blood cultures
- May consider muscle biopsy if above workup not revealing
Chief Complaint
-: Leukocytosis and Other (Myalgias)
Subjective / Review of Systems
Patient seen and examined. Reports ongoing diffuse muscle discomfort in the lower extremities.
Vital Signs / Physical Exam
Vital Signs
Vital Signs
Temp Pulse Resp BP Pulse Ox
98.1 F 84 18 134/67 97
08/15/25 07:05 08/15/25 08:20 08/15/25 07:05 08/15/25 08:20 08/15/25 07:05
Physical Exam
Constitutional: No Acute Distress, Comfortable and Non-toxic
Eyes: Sclera Anicteric
Cardiovascular: Regular Rate and S1/S2; Negative S3/S4
Pulmonary: Clear and Symmetric; Negative Wheezes or Rales
Gastrointestinal: Soft, Non Tender, Non Distended and Normal Bowel Sounds
Skin: Warm and Dry; Negative Rash or Jaundice
Neurological: Awake and Alert
Psychological: Calm
Objective Data
Lab Data
Lab Results
08/15/25 07:34
08/15/25 07:34
ESR 96 mm/hour (0-20) H 08/11/25 12:24
Estimated Creat Clear 91 ml/min 08/15/25 07:34
Total Bilirubin 0.6 mg/dl (0.2-1.3) 08/15/25 07:34
GGT 116 U/L (15-73) H 08/15/25 07:34
AST 18 U/L (17-59) 08/15/25 07:34
ALT 18 U/L (0-50) 08/15/25 07:34
Alkaline Phosphatase 195 U/L (38-126) H 08/15/25 07:34
C-Reactive Protein > 270.00 mg/L (0.0-10.00) H 08/11/25 12:24
Most recent labs reviewed.
Micro Results:
08/15/25 12:14 Chlamydia trachomatis (PCR) - Pending
Urine Neisseria gonorrhoeae (PCR) - Pending
08/12/25 08:05 Blood Culture - Preliminary
Blood/Venous No Growth in 72 hours- Final report to follow
08/11/25 15:55 Blood Culture - Preliminary
Blood/Venous No Growth in 72 hours- Final report to follow
08/13/25 10:24 Urine Culture - Final
Urine NO GROWTH
08/11/25 17:42 Urine Culture - Final
Urine NO GROWTH
[2025-08-15 15:23] VITALS: BP 141/63
[2025-08-15] MEDS: MIRALAX 17 GRAMS PO (21:56)
[2025-08-15 23:20] VITALS: BP 137/62
[2025-08-16] MEDS: TYLENOL 650 MG PO ×4 (03:00→23:03)
[2025-08-16] MEDS: STERILE WATER FOR INJECTION 10 ML IV ×2 (03:01→10:02)
[2025-08-16] MEDS: MAXIPIME 1000 MG IV ×2 (03:01→10:01)
[2025-08-16 08:00] LABS: Hematocrit 35.5 % (39.0-52.0); Hemoglobin 11.3 g/dL (13.0-18.0); Mean Corp Hgb Conc. 31.8 g/dL (33.0-37.0); Mean Corpuscular Volume 88.1 fL (80.0-94.0); Platelet Count 484 10^3/uL (130-400); Red Cell Dist. Width 13.8 % (11.5-14.5)
[2025-08-16 08:01] VITALS: BP 137/67
[2025-08-16] MEDS: CELEBREX 200 MG PO ×2 (08:13→19:25)
[2025-08-16] MEDS: NORVASC 5 MG PO (08:14)
[2025-08-16] MEDS: SENOKOT-S 1 TABLET PO (08:23)
[2025-08-16 08:28] LABS: ALT (SGPT) 24 U/L (0-50); AST (SGOT) 22 U/L (17-59); Albumin 2.4 g/dl (3.5-5.0); Alkaline Phosphatase 238 U/L (38-126); Blood Urea Nitrogen 21 mg/dl (9-20); Calcium 8.2 mg/dl (8.4-10.2); Carbon Dioxide 30 mmol/L (22-30); Chloride 102 mmol/L (98-107); Estimated Creatinine Clearance 91 ml/min; Glucose 148 mg/dl (70-99); Potassium 4.6 mmol/L (3.5-5.1); Sodium 135 mmol/L (135-145); Total Protein 5.7 g/dl (6.3-8.2); eGFR > 60.00
[2025-08-16 08:35] LABS: Nucleated Red Blood Cells % 0 % (-)
[2025-08-16] MEDS: MIRALAX 17 GRAMS PO (10:04)
--- NOTE | 2025-08-16 11:39 | W.PN.HOSP.TC ---
Today's Communication/Plan
-
XR abd
US RUQ
abx as per ID
might need repeated CT imaging of pelvis
URology for hematuria
Assessment / Plan
Assessment / Plan
70yo M with PMHx of HLD, BPH s/p TURP came with pain in b/l LE started after his TURBT. CT abd/pelvis dose before current admission showed some signs of urinary bladder wall thickening. With leukocytosis concern for UTI so started on cefepime.
Bedside patient reports pain to start from his R gron and radiating to the testicle and only then - traveling down the legs. R testicle tender to touch.
A/P:
#UTI, cystitis, cannot exclude prostatitis
#Hematuria
Discuss hematuria with urologist on 08/16/25
Ucx ntd
cGC and chlam PCR neg
cont Abx as per ID
US testicular without signs of epididymitis
Bcx NTD
follow WBC and fever curve
MRI back: There is mild edema at the of the L4-L5 endplates with slight STIR signal within the intervertebral disc which is likely degenerative although early discitis/osteomyelitis could appear similar. However most consistenct with degenerative
changes with no point tenderness over the spine and no back pain
Echo: no concern for vegetations
#Constipation
MRI back not concerning for significant spinal canal stenosis or spinal cord imprigement
laxatives
check XR abd
Limit opioids
#Elevated alk.phos
no RUQ tenderness
check RUQ US
#b/l LE pain
on standing only
No muscle tenderness and normal CPK - no concern for myopathy
patient reports it as a radiating feeling from groin
CPK WNL
check WILBUR, CCP, aldolase
RF neg
#Essential HTN
#HLD
cont home meds
DVT ppx lovenox
Full code
I have spent at least 58min reviewing chart, test results, communication with consulthants and providing direct patient care
Anticipated Discharge: > 48 hours
Subjective/Interval History
-
Date of Service: August 16, 2025
Objective Data
-
Labs:
Laboratory Results
08/16/25
07:20
WBC 27.7 H
Hgb 11.3 L
Hct 35.5 L
Plt Count 484 H D
Sodium 135
Potassium 4.6
Chloride 102
Carbon Dioxide 30
BUN 21 H
Creatinine 0.8
Glucose 148 H
Calcium 8.2 L
Total Bilirubin 0.7
AST 22
ALT 24
Alkaline Phosphatase 238 H
Vital Signs:
Vital Signs
Temp Pulse Resp BP Pulse Ox
98.3 F 81 16 137/67 98
08/16/25 08:01 08/16/25 08:01 08/16/25 08:01 08/16/25 08:01 08/16/25 08:01
I&O
08/15/25 08/16/25 08/17/25
06:59 06:59 06:59
Intake Total 570 / 570 1320 / 1320
Output Total 300 / 300 700 / 700
Balance 270 / 270 620 / 620
Review of Systems
-
History Source: Patient
All other systems: Reviewed and negative
Abdomen/GI: Reports Constipated
Physical Exam
-
General: No Apparent Distress
HEENT: Normocephalic
Respiratory: Clear to Auscultation
GI: Soft, Nontender and Distended
Musculoskeletal: No Clubbing, No Cyanosis and No Edema
--- NOTE | 2025-08-16 12:39 | W.PN.ID1 ---
Date of Service
Date of Service: August 16, 2025
Today's Communication
Discontinue antibiotics with close observation.
Assessment / Plan
Leukocytosis; persistent
Reported night Sweats (without fever)
Bilateral Leg pain myalgaias and arthralgias
Elevated ESR / CRP
Recommendations:
- QFT gold -indeterminant
- TTE with evidence of endocarditis
- MRI lumbar spine - most consistent with degenerative changes.
- blood cultures x2; no growth to date
- urine culture is negative
- currently d#6 cefepime without apparent effect on leukocytosis
Without currently identified bacterial etiology, will discontinue further antibiotics and observe closely. If there is an infectious process, it may need to declare itself.
Chief Complaint
-: Leukocytosis and Other (Myalgias)
Subjective / Review of Systems
Review of Systems: No Fever, No Cough and No Dysuria
Vital Signs / Physical Exam
Vital Signs
Vital Signs
Temp Pulse Resp BP Pulse Ox
98.3 F 81 16 137/67 98
08/16/25 08:01 08/16/25 08:01 08/16/25 08:01 08/16/25 08:01 08/16/25 08:01
Physical Exam
Constitutional: No Acute Distress, Comfortable and Non-toxic
Eyes: Sclera Anicteric
Cardiovascular: Regular Rate and S1/S2; Negative S3/S4
Pulmonary: Clear and Symmetric; Negative Wheezes or Rales
Gastrointestinal: Soft, Non Tender, Non Distended and Normal Bowel Sounds
Musculoskeletal: Other (No muscle soreness with palpation)
Skin: Warm and Dry; Negative Rash or Jaundice
Neurological: Awake and Alert
Psychological: Calm
Objective Data
Lab Data
Lab Results
08/16/25 07:20
08/16/25 07:20
ESR 96 mm/hour (0-20) H 10/23/25 12:24
Estimated Creat Clear 91 ml/min 08/16/25 07:20
Total Bilirubin 0.7 mg/dl (0.2-1.3) 08/16/25 07:20
GGT 116 U/L (15-73) H 08/15/25 07:34
AST 22 U/L (17-59) 08/16/25 07:20
ALT 24 U/L (0-50) 08/16/25 07:20
Alkaline Phosphatase 238 U/L (38-126) H 08/16/25 07:20
C-Reactive Protein > 270.00 mg/L (0.0-10.00) H 08/11/25 12:24
Most recent labs reviewed.
Micro Results:
08/12/25 08:05 Blood Culture - Preliminary
Blood/Venous No Growth in 4 days- Final report to follow
08/11/25 15:55 Blood Culture - Preliminary
Blood/Venous No Growth in 4 days- Final report to follow
08/15/25 12:14 Chlamydia trachomatis (PCR) - Final
Urine Neisseria gonorrhoeae (PCR) - Final
08/13/25 10:24 Urine Culture - Final
Urine NO GROWTH
08/11/25 17:42 Urine Culture - Final
Urine NO GROWTH
[2025-08-16 15:24] VITALS: BP 127/61
[2025-08-16 23:24] VITALS: BP 135/63
[2025-08-17 01:42] LABS: ANA, IgG Reflex to HEp-2 None Detected (None Detected)
[2025-08-17 01:43] LABS: CCP Antibody IgG/IgA 4 Units (0-19)
[2025-08-17] MEDS: TYLENOL 650 MG PO ×4 (06:33→22:00)
[2025-08-17 06:47] LABS: Hematocrit 31.5 % (39.0-52.0); Hemoglobin 10.4 g/dL (13.0-18.0); Mean Corp Hgb Conc. 33.0 g/dL (33.0-37.0); Mean Corpuscular Volume 86.5 fL (80.0-94.0); Platelet Count 464 10^3/uL (130-400); Red Cell Dist. Width 13.9 % (11.5-14.5)
[2025-08-17 07:00] VITALS: BP 144/62
[2025-08-17 07:08] LABS: ALT (SGPT) 20 U/L (0-50); AST (SGOT) 19 U/L (17-59); Albumin 2.2 g/dl (3.5-5.0); Alkaline Phosphatase 208 U/L (38-126); Total Protein 5.5 g/dl (6.3-8.2)
[2025-08-17 07:24] LABS: Nucleated Red Blood Cells % 0 % (-)
[2025-08-17 07:44] LABS: Procalcitonin 1.22 ng/ml (0.0-0.25)
[2025-08-17] MEDS: CELEBREX 200 MG PO ×2 (08:31→19:25)
[2025-08-17] MEDS: NORVASC 5 MG PO (08:32)
--- NOTE | 2025-08-17 09:02 | W.PN.URO.CBU ---
Addendum entered and electronically signed by Vasquez Toro Jr., MD 08/17/25 13:49:
MRI negative for abscess
intermittent hematuria and dysuria nl given his recent large TURP
start pyridium
observe
Original Note:
Today's Communication / Plan
-
pelvic MRI today
Assessment / Plan
-
prior TURP 06/09 for urinary retention
persistent leukocytosis
i have reviewed all studies along with my partners
ucx's all negative
no evid on ct or [place] of abscess
no hydro
no evid of orchitis
bladder thickening and his hematuria would generally be considered expected at this point in his recovery given his sig bph/longstanding retention/etc
reviewed with med team- for pelvic MRI- if abscess in prostate- then would re-TUR
being observed off antibx at this time
will follow closely
Diagnosis
-
Date of Service: August 17, 2025
-
Patient Diagnosis:
s/p TURP 06/09
persistent leukocytosis
Subjective
-
pt still not feeling well/achy and fatigued
still with some hematuria- but no dysuria
some achiness in testicles
all cx's negative
abd u/s negative
scrotal u/s negative
previous ct negative from gu perspective
Objective
-
Vital Signs
Temp Pulse Resp BP Pulse Ox
98.7 F 84 18 144/62 98
08/17/25 07:00 08/17/25 07:00 08/17/25 07:00 08/17/25 07:00 08/17/25 07:00
Intake and Output
08/16/25 08/17/25 08/18/25
06:59 06:59 06:59
Intake Total 1320 / 1320 1440 / 1440
Output Total 700 / 700 500 / 500
Balance 620 / 620 940 / 940
Intake:
Oral fluids 1320 / 1320 1440 / 1440
Output:
Urine, Voided 700 / 700 500 / 500
Other:
Number of approximated MODERATE 1 2
amounts of urine
Laboratory Results
08/17/25 06:30
08/16/25 07:20
Review of Systems
-
Constitutional: Fatigue
Respiratory: No Symptoms
Cardiac: No Symptoms
Abdomen/GI: Constipated
: Other (hematuria)
Musculoskeletal: Muscle Pain
Skin: No Symptoms
Neurological: No Symptoms
Physical Exam
-
General - no acute distress
Abdomen - soft, non-tender
Genitalia - normal- no testicular abnl- prostate is smooth- non-nodular and non tender
Rectal - normal- no abscess or tenderness
Skin - warm & dry with no rash
Neuro - AOx3, no motor deficits
Extremities - no clubbing, no cyanosis, no edema
[2025-08-17] MEDS: VALIUM INJECTION 2 MG IV (09:49)
--- NOTE | 2025-08-17 09:57 | W.PN.HOSP.TC ---
Today's Communication/Plan
-
MRI prostate
Patient feeling better today with downtrending WBC
Assessment / Plan
Assessment / Plan
70yo M with PMHx of HLD, BPH s/p TURP came with pain in b/l LE started after his TURBT. CT abd/pelvis dose before current admission showed some signs of urinary bladder wall thickening. With leukocytosis concern for UTI so started on cefepime.
Bedside patient reports pain to start from his R groin and radiating to the testicle and only then - traveling down the legs. R testicle tender to touch. Started to improve subjectively with less pain and night sweats on 08/17/25
A/P:
#UTI, cystitis, cannot exclude prostatitis
#Hematuria
Most likely infectious process since no significant signs of autoimmune or BM abnormality as described below
Ucx ntd
GC and chlam PCR neg
ID consult: empiric Cefepime completed 5 days, stopped on 08/17/25 - monitor clinically
Procalcitonin elevated
US testicular without signs of epididymitis
Discussed in details with urology: hematuria expected for months after extent of the procedure done. 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 MRI prostate to r/o prostate absess pending
Bcx NTD
follow WBC and fever curve
MRI back: There is mild edema at the of the L4-L5 endplates with slight STIR signal within the intervertebral disc which is likely degenerative although early discitis/osteomyelitis could appear similar. However most consistent with degenerative
changes with no point tenderness over the spine and no back pain
Echo: no concern for vegetations
No blast cells on CBC seen
#Constipation
MRI back not concerning for significant spinal canal stenosis or spinal cord impingement
laxatives
XR abd - moderate stool burden
Limit opioids
#Elevated alk.phos
no RUQ tenderness
RUQ US without acute gall bladder abnormality
#b/l LE pain
on standing only
No muscle tenderness and normal CPK - no concern for myopathy
patient reports it as a radiating feeling from groin
CPK WNL
WILBUR, CCP, aldolase neg
RF neg
#Essential HTN
#HLD
cont home meds
DVT ppx lovenox
Full code
I have spent at least 51min reviewing chart, test results, communication with consulthants and providing direct patient care
Anticipated Discharge: 24 - 48 hours
Subjective/Interval History
-
Date of Service: August 17, 2025
Objective Data
-
Labs:
Laboratory Results
08/17/25
06:30
WBC 25.1 H
Hgb 10.4 L
Hct 31.5 L
Plt Count 464 H
Total Bilirubin 0.7
AST 19
ALT 20
Alkaline Phosphatase 208 H
Vital Signs:
Vital Signs
Temp Pulse Resp BP Pulse Ox
98.7 F 84 18 144/62 98
08/17/25 07:00 08/17/25 07:00 08/17/25 07:00 08/17/25 07:00 08/17/25 07:00
I&O
08/16/25 08/17/25 08/18/25
06:59 06:59 06:59
Intake Total 1320 / 1320 1440 / 1440
Output Total 700 / 700 500 / 500
Balance 620 / 620 940 / 940
Review of Systems
-
History Source: Patient
All other systems: Reviewed and negative
Physical Exam
-
General: No Apparent Distress
HEENT: Normocephalic
Cardiac: Regular Rhythm
GI: Soft, Nontender and Nondistended
Neuro: Awake, Alert, Oriented and AO x 3
Psych: Calm
--- NOTE | 2025-08-17 11:09 | CM ---
Chart reviewed. Care ongoing.
MRI prostate
Abx stopped today, will monitor
Plan: Home, no needs
[2025-08-17 12:15] LABS: Urine Character Cloudy (Clear)
[2025-08-17 12:33] LABS: Urine Red Blood Cell >100 /HPF (0-2)
--- NOTE | 2025-08-17 13:34 | W.PN.ID1 ---
Date of Service
Date of Service: August 17, 2025
Today's Communication
Observe off abx.
Assessment / Plan
Leukocytosis; persistent
Reported night sweats (without fever)
- improved / resolved
Bilateral Leg pain myalgaias and arthralgias
- improved / resolved
Elevated ESR / CRP
Recommendations:
- QFT gold -indeterminant
- TTE with evidence of endocarditis
- MRI lumbar spine - most consistent with degenerative changes.
- blood cultures x2; no growth to date
- urine culture : negative
- s/p cefepime x6 days without apparent effect on leukocytosis. D/C'ed 08/16/25
No identifiable bacterial infection at present.
Would continue to observe off abx. If there is an infectious process, it may need to declare itself.
Case discussed with Hospitalist. Agree with Heme-Onc eval.

Chief Complaint
-: Leukocytosis and Other (Myalgias)
Subjective / Review of Systems
Pt seen / examined. No dysuria. [id number] muscle discomfort.
Review of Systems: No Fever and No Chills
Vital Signs / Physical Exam
Vital Signs
Vital Signs
Temp Pulse Resp BP Pulse Ox
98.7 F 84 18 144/62 98
08/17/25 07:00 08/17/25 07:00 08/17/25 07:00 08/17/25 07:00 08/17/25 07:00
Physical Exam
Constitutional: No Acute Distress, Comfortable and Non-toxic
Eyes: Sclera Anicteric
Cardiovascular: Regular Rate and S1/S2; Negative S3/S4
Pulmonary: Clear and Symmetric; Negative Wheezes or Rales
Gastrointestinal: Soft, Non Tender, Non Distended and Normal Bowel Sounds
Musculoskeletal: Other (No muscle soreness with palpation)
Skin: Warm and Dry; Negative Rash or Jaundice
Neurological: Awake and Alert
Psychological: Calm
Objective Data
Lab Data
Lab Results
08/17/25 06:30
08/16/25 07:20
ESR 96 mm/hour (0-20) H 08/11/25 12:24
Estimated Creat Clear 91 ml/min 08/16/25 07:20
Total Bilirubin 0.7 mg/dl (0.2-1.3) 08/17/25 06:30
GGT 116 U/L (15-73) H 08/15/25 07:34
AST 19 U/L (17-59) 08/17/25 06:30
ALT 20 U/L (0-50) 08/17/25 06:30
Alkaline Phosphatase 208 U/L (38-126) H 08/17/25 06:30
C-Reactive Protein > 270.00 mg/L (0.0-10.00) H 08/11/25 12:24
Most recent labs reviewed.
Micro Results:
08/17/25 11:35 Urine Culture - Pending
Urine
08/12/25 08:05 Blood Culture - Final
Blood/Venous No Growth - Final Report
08/11/25 15:55 Blood Culture - Final
Blood/Venous No Growth - Final Report
08/15/25 12:14 Chlamydia trachomatis (PCR) - Final
Urine Neisseria gonorrhoeae (PCR) - Final
08/13/25 10:24 Urine Culture - Final
Urine NO GROWTH
08/11/25 17:42 Urine Culture - Final
Urine NO GROWTH
Imaging:
08/17/2025 MRI pelvis : Changes of prior TURP. There is no evidence of pelvic abscess. There is an 8 mm PI-RADS 3 nodule within the posterior medial aspect of the left peripheral zone at the region of the mid gland. This does not demonstrate
significant enhancement which makes prostatitis unlikely. The urinary bladder appears thickened with prominent trabeculations which is likely sequelae of chronic outlet obstruction.
[2025-08-17 15:00] VITALS: BP 137/61
[2025-08-17] MEDS: ULTRAM 50 MG PO ×2 (15:28→22:43)
[2025-08-17 22:59] VITALS: BP 141/53
[2025-08-18 06:39] LABS: Hematocrit 33.2 % (39.0-52.0); Hemoglobin 10.3 g/dL (13.0-18.0); Mean Corp Hgb Conc. 31.0 g/dL (33.0-37.0); Mean Corpuscular Volume 91.7 fL (80.0-94.0); Platelet Count 471 10^3/uL (130-400); Red Cell Dist. Width 14.0 % (11.5-14.5)
[2025-08-18 07:00] VITALS: BP 128/60
[2025-08-18 07:48] LABS: Nucleated Red Blood Cells % 0 % (-)
[2025-08-18] MEDS: ULTRAM 50 MG PO (07:49)
[2025-08-18] MEDS: CELEBREX 200 MG PO ×2 (07:50→20:49)
[2025-08-18] MEDS: TYLENOL 650 MG PO (07:50)
[2025-08-18] MEDS: NORVASC 5 MG PO (07:51)
--- NOTE | 2025-08-18 08:31 | W.PN.URO.CBU ---
Today's Communication / Plan
-
will observe
Assessment / Plan
-
prior TURP 06/09 for urinary retention
persistent leukocytosis
i have reviewed all studies along with my partners
ucx's all negative
no evid on ct or [place] of abscess
MRI negative
no hydro
no evid of orchitis
bladder thickening and his hematuria would generally be considered expected at this point in his recovery given his sig bph/longstanding retention/etc
no objective evid of gu source of leukocytosis
heme consult pending
last resort from my end would be return to OR for recysto and TUR- but given the absence of any indication of infx/source- this would prob set pt back
will follow
Diagnosis
-
Date of Service: August 18, 2025
-
Patient Diagnosis:
s/p TURP 06/09
persistent leukocytosis
Subjective
-
pr remains afebrile with elevated wbc off antibx
still says he just feels bad
some intermittent dysuria and hematuria- but urine now clear- pyridium colored
MRI yesterday- no evid of abscess/inflammation
Objective
-
Vital Signs
Temp Pulse Resp BP Pulse Ox
98.8 F 79 16 128/60 97
08/18/25 07:00 08/18/25 07:00 08/18/25 07:00 08/18/25 07:00 08/18/25 07:00
Intake and Output
08/17/25 08/18/25 08/19/25
06:59 06:59 06:59
Intake Total 1440 / 1440 120 / 120
Output Total 500 / 500
Balance 940 / 940 120 / 120
Intake:
Oral fluids 1440 / 1440 120 / 120
Output:
Urine, Voided 500 / 500
Other:
Number of approximated MODERATE 2 1
amounts of urine
Laboratory Results
08/18/25 06:04
08/16/25 07:20
Review of Systems
-
Constitutional: Fatigue
Respiratory: No Symptoms
Cardiac: No Symptoms
Abdomen/GI: No Symptoms
: Frequency
Musculoskeletal: Muscle Stiffness
Physical Exam
-
General - no acute distress
Abdomen - soft, non-tender,
--- NOTE | 2025-08-18 09:08 | CON.ONC ---
Consultation
-
Date Consultation Requested: 08/18/25
Date Consultation Performed: 08/18/25
Requesting Provider: Dr. Laron Ramey
Performing Provider: Dr. Patricio Webb
Reason for Consultation: leukocytosis
Impression
Impression
a/w with persistent leukocytosis, night sweats, and myalgias with b/l LE weakness
hematology consulted for leukocytosis/neutrophilia -also noted normocytic anemia, thrombocytosis
night sweats, myalgias
CT 08/06, renal US 08/14, and Pelvic MRI 08/17/2025 showed urinary bladder wall thickening
MRI L spine with mild edema at the of the L4-L5 endplates with slight STIR signal within the intervertebral disc
hematuria
constipation
b/l LE pain
Plan
Plan
ID following -observing off abx -remains afebrile and culture negative
urology following
leukocytosis/neutrophilia persistent and worsening since May 2025 along with anemia and thrombocytosis. Elevated ferritin and CRP suggests inflammatory/chronic disease process for anemia and thrombocytosis. Also, likely the etology of his
leukocytosis. However, with myalgias and night sweats, recommend peripheral flow, Jak2, and BCR ABL.
Patient History
History of Present Illness
70yo M who was advised to present to the ER on 08/06/2025 for leukocytosis and discharged with levofloxacin and now re-presented on 08/11/2025 with persistent leukocytosis, night sweats, and myalgias with b/l LE weakness. His symptoms have been
ongoing for the past 2 weeks. His symptoms started in the feet and affects both his calf muscles, thigh muscles, and hip muscles causing difficulty ambulating due to fatigue and weakness. He had been taking Tylenol and Ibuprofen without relief of
his symptoms. ID and urology are following. He has been treated with a course of antibiotics which completed 08/16/2025 and being observed off antibiotics. His infectious work up by ID is negative to date. His Ucx 08/06, 08/11, 08/13, and 08/17 were
negative. He was also negative for chlamydia and gonorrhoea. Bcx 08/11 and 08/12 are negative to date. His transthoracic echo 08/12 did not mention any vegetation. His CXR showed no pneumonia.
Hematology is consulted for evaluation of persistent leukocytosis. 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 His WBC 06/10/2025 was 11.2,
trended up to 15.6 on 08/06/2025, peaked during this admission on 08/16/2025 to 29.3. Differential since May 2022 shows neutrophilia. His other labs show normocytic anemia trending from 13g/dL on 06/01/2025 to 10.3g/dL today and a thrombocytosis
new starting 08/15/2025 with peak today 471,000. His Alk phos is elevated to ~200, otherwise he has normal LFTs and renal function. His iron studies and CRP are c/w AOCD/inflammation with a ferritin 1280 and CRP >270. His CT ab/pelvis on 08/06
showed increasing circumferential urinary bladder wall thickening. His L spine MRI showed mild edema at the of the L4-L5 endplates with slight STIR signal within the intervertebral disc which is likely degenerative, L5-S1 there is resultant moderate
right-sided neuroforaminal narrowing, L4-L5 there is resultant mild/moderate right-sided neuroforaminal narrowing and severe left-sided neuroforaminal narrowing, and worsening grade 1 anterolisthesis of L4 on L5 with multilevel degenerative changes.
His ab US 08/16/2025 showed gallbladder sludge and mild hepatomegaly. His pelvic MRI 08/17/2025 showed 8 mm PI-RADS 3 nodule within the posterior medial aspect of the left peripheral zone at the region of the mid gland, prostatitis unlikely and
urinary bladder appears thickened with prominent trabeculations which is likely sequelae of chronic outlet obstruction.
Clinically, he reports hematuria, fatigue, LE weakness, myalgias, drenching night sweats. He denies fever, chills, cough, SOB, BIRD, n/v/d/c or abdominal pain. He denies any changes in his bowels or appetite.
Afebrile, no hypoxia or hypotension.
Past-Medical/Surgical History
PMH HTN, BPH
PSH cutaneous cyst removal, TURP
Social former smoker, denies ETOH or recreational drugs. .
Family non contributory
Patient Medication
�Medication �Instructions �Recorded �Confirmed �Last Taken �Type
amlodipine 5 mg tablet 5 mg PO Blood Pressure 08/11/25 08/11/25 History
celecoxib 200 mg capsule 200 mg PO BID Pain 08/11/25 08/11/25 Unknown History
finasteride 5 mg tablet 5 mg PO BPH 08/11/25 Unknown History
rosuvastatin 5 mg tablet 5 mg PO DAILY High Cholesterol 08/11/25 08/11/25 Unknown History
Active Medications
Generic Name Dose Route Start Last Admin
Trade Name Freq PRN Reason Stop Dose Admin
Acetaminophen 650 mg 08/11/25 21:11 08/18/25 07:50
Acetaminophen 325 Mg Tablet PO 09/08/25 21:10 650 mg
Q4HPRN PRN Administration
mild pain/SANTOYO/temp> 100.4F
Amlodipine Besylate 5 mg 08/12/25 08:00 08/18/25 07:51
Amlodipine 5 Mg Tablet PO 09/09/25 07:59 5 mg
DAILY ALFONSO Administration
Bisacodyl 10 mg 08/11/25 21:11
Bisacodyl 10 Mg Rectal Suppository RECTAL 09/08/25 21:10
[id number] PRN
constipation
Celecoxib 200 mg 08/11/25 21:11 08/18/25 07:50
Celecoxib 200 Mg Capsule PO 09/08/25 21:10 200 mg
BID ALFONSO Administration
Diazepam 2 mg 08/17/25 07:18 08/17/25 09:49
Diazepam 10 Mg/2 Ml Inj IV 09/14/25 07:17 2 mg
PRN PRN Administration
once before MRI
Enoxaparin Sodium 40 mg 08/12/25 18:00 08/17/25 17:39
Enoxaparin Sodium 40 Mg/0.4 Ml Syringe SC 09/09/25 17:59 Not Given
QPM ALFONSO
Gabapentin 100 mg 08/18/25 16:00
Gabapentin 100 Mg Capsule PO 09/15/25 15:59
TID ALFONSO
Gabapentin 100 mg 08/18/25 08:57
Gabapentin 100 Mg Capsule PO 08/18/25 08:58
NOW STA
Ondansetron HCl 4 mg 08/11/25 21:11
Ondansetron 4 Mg/2 Ml Vial IV 09/08/25 21:10
Q6HPRN PRN
nausea and vomiting
Phenazopyridine HCl 200 mg 08/17/25 20:00 08/18/25 07:49
Phenazopyridine 200 Mg Tablet PO 09/14/25 19:59 200 mg
BID ALFONSO Administration
Polyethylene Glycol 17 grams 08/11/25 21:11 08/15/25 21:56
Polyethylene Glycol Powder 17 Grams Packet PO 09/08/25 21:10 17 grams
DAILYPRN PRN Administration
constipation
Senna/Docusate Sodium 1 tablet 08/11/25 21:11 08/16/25 08:23
Docusate W/Senna (Jania-Colace) Tablet PO 09/08/25 21:10 1 tablet
BIDPRN PRN Administration
constipation
Sodium Chloride 0 flush 08/11/25 22:00 08/14/25 10:53
Sodium Chloride 0.9% (Flush) Syringe IV 09/08/25 21:59 2 flush
PER PROTOCOL ALFONSO Administration
Tramadol HCl 50 mg 08/11/25 21:11 08/18/25 07:49
Tramadol Hcl 50 Mg Tablet PO 09/08/25 21:10 50 mg
Q6HPRN PRN Administration
moderate pain
Review of Systems
-
ROS is notable for HPI, otherwise negative
Physical Exam
-
General: No Apparent Distress
HEENT: Negative Jaundice
Pulmonary: Other (unlabored)
GI: Soft
Extremities: Pulses Present
Skin: Warm
Psych: Calm
Labs
Lab Results
WBC 24.9 10^3/uL (4.8-10.8) H 08/18/25 06:04
RBC 3.62 10^6/uL (4.70-6.10) L 08/18/25 06:04
Hgb 10.3 g/dL (13.0-18.0) L 08/18/25 06:04
Hct 33.2 % (39.0-52.0) L 08/18/25 06:04
MCV 91.7 fL (80.0-94.0) 08/18/25 06:04
MCH 28.5 pg (27.0-31.0) 08/18/25 06:04
MCHC 31.0 g/dL (33.0-37.0) L 08/18/25 06:04
RDW 14.0 % (11.5-14.5) 08/18/25 06:04
Plt Count 471 10^3/uL (130-400) H 08/18/25 06:04
MPV 10.1 fL (7.4-10.4) 08/18/25 06:04
Abs Immat Gran (auto) 0.5 10^3/uL (0-0.05) H 08/18/25 06:04
Absolute Neuts (auto) 22.1 10^3/uL (1.4-6.5) H 08/18/25 06:04
Absolute Lymphs (auto) 0.9 10^3/uL (1.2-3.4) L 08/18/25 06:04
Absolute Monos (auto) 1.1 10^3/uL (0.1-0.6) H 08/18/25 06:04
Absolute Eos (auto) 0.3 10^3/uL (0-0.7) 08/18/25 06:04
Absolute Basos (auto) 0.1 10^3/uL (0-0.2) 08/18/25 06:04
Immature Gran % 2.0 % (0-0.5) H 08/18/25 06:04
Neutrophils % 88.9 % (42.2-75.2) H 08/18/25 06:04
Lymphocytes % 3.4 % (20.5-51.1) L 08/18/25 06:04
Monocytes % 4.2 % (1.7-9.3) 08/18/25 06:04
Eosinophils % 1.3 % (0-6) 08/18/25 06:04
Basophils % 0.2 % (0-2) 08/18/25 06:04
Creatinine 0.8 mg/dL (0.7-1.3) 08/16/25 07:20
Vital Signs
Vital Signs
Temp Pulse Resp BP Pulse Ox
98.8 F 79 16 128/60 97
08/18/25 07:00 08/18/25 07:00 08/18/25 07:00 08/18/25 07:00 08/18/25 07:00
[2025-08-18] MEDS: NEURONTIN 100 MG PO ×3 (09:22→20:50)
--- NOTE | 2025-08-18 10:39 | W.PN.HOSP.TC ---
Today's Communication/Plan
-
CBC, LFT in AM
hem consult
trial of Neurontin
Assessment / Plan
Assessment / Plan
70yo M with PMHx of HLD, BPH s/p TURP came with pain in b/l LE started after his TURBT. CT abd/pelvis dose before current admission showed some signs of urinary bladder wall thickening. With leukocytosis concern for UTI so started on cefepime.
Bedside patient reports pain to start from his R groin and radiating to the testicle and only then - traveling down the legs. He reports no overt weakness existed on admission, but now might be limited due to pain. R testicle tender to touch.
Started to improve subjectively with less pain and night sweats on 08/17/25
A/P:
#UTI, cystitis, cannot exclude prostatitis
#Hematuria
Ucx ntd
GC and chlam PCR neg
ID consult: empiric Cefepime completed 5 days, stopped on 08/17/25 - monitor clinically
Procalcitonin elevated - can be due to infectious or non-infectious reasons
US testicular without signs of epididymitis
Discussed in details with urology: hematuria expected for months after extent of the procedure done. 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 MRI prostate to r/o prostate absess pending
Bcx NTD
follow WBC and fever curve
MRI back: There is mild edema at the of the L4-L5 endplates with slight STIR signal within the intervertebral disc which is likely degenerative although early discitis/osteomyelitis could appear similar. However most consistent with degenerative
changes with no point tenderness over the spine and no back pain
Echo: no concern for vegetations
Hematology consult
#Constipation
MRI back not concerning for significant spinal canal stenosis or spinal cord impingement
laxatives
XR abd - moderate stool burden
Limit opioids
#Elevated alk.phos
no RUQ tenderness
RUQ US without acute gall bladder abnormality
#b/l LE pain
on standing only
No muscle tenderness and normal CPK - no concern for myopathy
patient reports it as a radiating feeling from groin
CPK WNL
WILBUR, CCP, aldolase neg
RF neg
add neurontin
#Essential HTN
#HLD
cont home meds
DVT ppx lovenox
Full code
I have spent at least 51min reviewing chart, test results, communication with consulthants and providing direct patient care
Anticipated Discharge: 24 - 48 hours
Subjective/Interval History
-
Date of Service: August 18, 2025
Objective Data
-
Labs:
Laboratory Results
08/18/25
06:04
WBC 24.9 H
Hgb 10.3 L
Hct 33.2 L
Plt Count 471 H
Vital Signs:
Vital Signs
Temp Pulse Resp BP Pulse Ox
98.8 F 79 16 128/60 97
08/18/25 07:00 08/18/25 07:00 08/18/25 07:00 08/18/25 07:00 08/18/25 07:00
I&O
08/17/25 08/18/25 08/19/25
06:59 06:59 06:59
Intake Total 1440 / 1440 120 / 120
Output Total 500 / 500
Balance 940 / 940 120 / 120
Physical Exam
-
General: No Apparent Distress
HEENT: Normocephalic
Respiratory: Clear to Auscultation
GI: Soft, Nontender and Nondistended
Skin: Warm; Negative Rash, Ulcers or Lesions
Neuro: Awake, Alert, Oriented, AO x 3 and No Motor Deficits
Psych: Calm
--- NOTE | 2025-08-18 14:39 | W.PN.ID1 ---
Date of Service
Date of Service: August 18, 2025
Today's Communication
Observe off abx.
Assessment / Plan
Leukocytosis; persistent
Reported night sweats (without fever)
- improved / resolved
Bilateral Leg pain myalgaias and arthralgias
- improved / resolved
Elevated ESR / CRP
Recommendations:
- QFT gold -indeterminant
- TTE with evidence of endocarditis
- MRI lumbar spine - most consistent with degenerative changes.
- blood cultures x2; no growth to date
- urine culture : negative
- s/p cefepime x6 days without apparent effect on leukocytosis. D/C'ed 08/16/25
No identifiable bacterial infection at present.
Would continue to observe off abx. If there is an infectious process, it may need to declare itself.
Case discussed with Heme-Onc

Chief Complaint
-: Leukocytosis and Other (Myalgias)
Subjective / Review of Systems
Pt seen / examined. Reports feeling better today.
Review of Systems: No Fever and No Chills
Vital Signs / Physical Exam
Vital Signs
Vital Signs
Temp Pulse Resp BP Pulse Ox
98.8 F 79 16 128/60 97
08/18/25 07:00 08/18/25 07:00 08/18/25 07:00 08/18/25 07:00 08/18/25 07:00
Physical Exam
Constitutional: No Acute Distress, Comfortable and Non-toxic
Eyes: Sclera Anicteric
Cardiovascular: Regular Rate and S1/S2; Negative S3/S4
Pulmonary: Clear
Gastrointestinal: Soft, Non Tender, Non Distended and Normal Bowel Sounds
Musculoskeletal: Other (No muscle soreness with palpation)
Skin: Warm and Dry; Negative Rash or Jaundice
Neurological: Awake and Alert
Psychological: Calm
Objective Data
Lab Data
Lab Results
08/18/25 06:04
08/16/25 07:20
ESR 96 mm/hour (0-20) H 08/11/25 12:24
Estimated Creat Clear 91 ml/min 08/16/25 07:20
Total Bilirubin 0.7 mg/dl (0.2-1.3) 08/17/25 06:30
GGT 116 U/L (15-73) H 08/15/25 07:34
AST 19 U/L (17-59) 08/17/25 06:30
ALT 20 U/L (0-50) 08/17/25 06:30
Alkaline Phosphatase 208 U/L (38-126) H 08/17/25 06:30
C-Reactive Protein > 270.00 mg/L (0.0-10.00) H 08/11/25 12:24
Most recent labs reviewed.
Micro Results:
08/17/25 11:35 Urine Culture - Final
Urine NO GROWTH
08/12/25 08:05 Blood Culture - Final
Blood/Venous No Growth - Final Report
08/11/25 15:55 Blood Culture - Final
Blood/Venous No Growth - Final Report
08/15/25 12:14 Chlamydia trachomatis (PCR) - Final
Urine Neisseria gonorrhoeae (PCR) - Final
08/13/25 10:24 Urine Culture - Final
Urine NO GROWTH
08/11/25 17:42 Urine Culture - Final
Urine NO GROWTH
Imaging:
08/17/2025 MRI pelvis : Changes of prior TURP. There is no evidence of pelvic abscess. There is an 8 mm PI-RADS 3 nodule within the posterior medial aspect of the left peripheral zone at the region of the mid gland. This does not demonstrate
significant enhancement which makes prostatitis unlikely. The urinary bladder appears thickened with prominent trabeculations which is likely sequelae of chronic outlet obstruction.
[2025-08-18 15:00] VITALS: BP 129/62
[2025-08-18 23:00] VITALS: BP 118/58
[2025-08-19] MEDS: MIRALAX 17 GRAMS PO (01:02)
[2025-08-19 07:00] VITALS: BP 133/66
[2025-08-19 07:52] LABS: ALT (SGPT) 18 U/L (0-50); AST (SGOT) 19 U/L (17-59); Albumin 2.4 g/dl (3.5-5.0); Alkaline Phosphatase 187 U/L (38-126); Total Protein 5.7 g/dl (6.3-8.2)
[2025-08-19 08:05] LABS: Hematocrit 31.8 % (39.0-52.0); Hemoglobin 9.8 g/dL (13.0-18.0); Mean Corp Hgb Conc. 30.8 g/dL (33.0-37.0); Mean Corpuscular Volume 91.1 fL (80.0-94.0); Nucleated Red Blood Cells % 0 % (-); Platelet Count 424 10^3/uL (130-400); Red Cell Dist. Width 14.2 % (11.5-14.5)
--- NOTE | 2025-08-19 08:36 | W.PN.URO.CBU ---
Today's Communication / Plan
-
outpt f/u
Assessment / Plan
-
prior TURP 06/09 for urinary retention
persistent leukocytosis
i have reviewed all studies along with my partners
ucx's all negative
no evid on ct or [place] of abscess
MRI negative
no hydro
no evid of orchitis
bladder thickening and his hematuria would generally be considered expected at this point in his recovery given his sig bph/longstanding retention/etc
no objective evid of gu source of leukocytosis
reviewed with hospitlaist
pt is feeling much better and wbc downtrending- plan for discharge with outpt uro and hem f/u
continue pyridium and proscar
Diagnosis
-
Date of Service: August 19, 2025
-
Patient Diagnosis:
s/p TURP 06/09
persistent leukocytosis
Subjective
-
pt seen by hematology- studies pending
low grade temp lat night- but wbc down
feels better - started on neurontin- thinks this is helping
urine pyridium colored
Objective
-
Vital Signs
Temp Pulse Resp BP Pulse Ox
98.4 F 85 16 133/66 95
08/19/25 07:00 08/19/25 07:00 08/19/25 07:00 08/19/25 07:00 08/19/25 07:00
Intake and Output
08/18/25 08/19/25 08/20/25
06:59 06:59 06:59
Intake Total 120 / 120 1350 / 1350
Output Total 225 / 225
Balance 120 / 120 1125 / 1125
Intake:
Oral fluids 120 / 120 1350 / 1350
Output:
Urine, Voided 225 / 225
Other:
Number of approximated MODERATE 1 4
amounts of urine
Laboratory Results
08/19/25 06:56
08/16/25 07:20
Review of Systems
-
Constitutional: Fatigue (but improved)
Respiratory: No Symptoms
Cardiac: No Symptoms
Abdomen/GI: No Symptoms
: Frequency
Physical Exam
-
General - no acute distress
[2025-08-19] MEDS: NEURONTIN 100 MG PO (08:38)
[2025-08-19] MEDS: CELEBREX 200 MG PO (08:39)
[2025-08-19] MEDS: NORVASC 5 MG PO (08:39)
--- NOTE | 2025-08-19 09:00 | PTCARENOTE ---
During morning med pass, pt given Xarelto, Allopurinol and Crestor which he was not prescribed. Dr. Ramey aware. Pt instructed to look for signs of bleeding. No further orders received.
[2025-08-19 09:14] LABS: Ferritin 1370.0 ng/ml (17.9-464.0)
--- NOTE | 2025-08-19 10:14 | W.PN.HOSP.TC ---
Today's Communication/Plan
-
dc
Assessment / Plan
Assessment / Plan
70yo M with PMHx of HLD, BPH s/p TURP came with pain in b/l LE started after his TURBT. CT abd/pelvis dose before current admission showed some signs of urinary bladder wall thickening. With leukocytosis concern for UTI so started on cefepime.
Bedside patient reports pain to start from his R groin and radiating to the testicle and only then - traveling down the legs. He reports no overt weakness existed on admission, but now might be limited due to pain. R testicle tender to touch.
Started to improve subjectively with less pain and night sweats on 08/17/25 also neurontin was very helpful with symptoms
Extensive negative w/u with MRI of the back, CT abd negative for acute pathology, prostate MRI without signs of abcess. Abx stopped and leukocytosis started to improve. Symptoms also improving. Hematology sent leukemia/lymphoma w/u that can be
followed as outpatient. Urology will plan to follow outpatient too, will later decide if repeated cystoscopy needed. Patient advised to have CBC and LFT done in 1 week upon d/c with PCP, with possible neuropatic pain - get referral to neurologist
from PCP - he verbalized understanding of the instructions. SInce improved - medically stabel to be d/c home
A/P:
#UTI, cystitis, cannot exclude prostatitis
#Hematuria
Ucx ntd
GC and chlam PCR neg
ID consult: empiric Cefepime completed 5 days, stopped on 08/17/25 - monitor clinically
Procalcitonin elevated - can be due to infectious or non-infectious reasons
US testicular without signs of epididymitis
Discussed in details with urology: hematuria expected for months after extent of the procedure done. 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 MRI prostate showed no signs of abscess
Bcx NTD
follow WBC and fever curve
MRI back: There is mild edema at the of the L4-L5 endplates with slight STIR signal within the intervertebral disc which is likely degenerative although early discitis/osteomyelitis could appear similar. However most consistent with degenerative
changes with no point tenderness over the spine and no back pain
Echo: no concern for vegetations
Hematology consult: leukemia/lymphoma, KAYE mutation labs sent. Outpatient follow up
#Constipation
MRI back not concerning for significant spinal canal stenosis or spinal cord impingement
laxatives
XR abd - moderate stool burden
Limit opioids
#Elevated alk.phos
improving
no RUQ tenderness
RUQ US without acute gall bladder abnormality
#b/l LE pain
on standing only
No muscle tenderness and normal CPK - no concern for myopathy
patient reports it as a radiating feeling from groin
CPK WNL
WILBUR, CCP, aldolase neg
RF neg
add neurontin - very helpful with pain - neuropathic pain?
#Essential HTN
#HLD
cont home meds
#Accidental Xarelto and allopurinol injestion
received 1 dose of each on 08/19/25 due to error
No further mgmt indicated
DVT ppx lovenox
Full code
I have spent at least 51min reviewing chart, test results, communication with consulthants and providing direct patient care
Anticipated Discharge: Today
Subjective/Interval History
-
Date of Service: August 19, 2025
Objective Data
-
Labs:
Laboratory Results
08/19/25
06:56
WBC 20.8 H
Hgb 9.8 L
Hct 31.8 L
Plt Count 424 H
Total Bilirubin 0.8
AST 19
ALT 18
Alkaline Phosphatase 187 H
Vital Signs:
Vital Signs
Temp Pulse Resp BP Pulse Ox
98.4 F 85 16 133/66 95
08/19/25 07:00 08/19/25 07:00 08/19/25 07:00 08/19/25 07:00 08/19/25 08:35
I&O
08/18/25 08/19/25 08/20/25
06:59 06:59 06:59
Intake Total 120 / 120 1350 / 1350
Output Total 225 / 225
Balance 120 / 120 1125 / 1125
Review of Systems
-
History Source: Patient
All other systems: Reviewed and negative
Physical Exam
-
General: No Apparent Distress and Comfortable
Neuro: Awake, Alert, Oriented and AO x 3
Psych: Calm
--- NOTE | 2025-08-19 10:25 | W.DCSUMMARY ---
Discharge Summary
Discharge Data
Date of Admission: 08/11/25
Date of Discharge: 08/19/25
-
Pending Results: No
Hospital Course
70yo M with PMHx of HLD, BPH s/p TURP came with pain in b/l LE started after his TURBT. CT abd/pelvis dose before current admission showed some signs of urinary bladder wall thickening. With leukocytosis concern for UTI so started on cefepime.
Bedside patient reports pain to start from his R groin and radiating to the testicle and only then - traveling down the legs. He reports no overt weakness existed on admission, but now might be limited due to pain. R testicle tender to touch.
Started to improve subjectively with less pain and night sweats on 08/17/25 also neurontin was very helpful with symptoms
Extensive negative w/u with MRI of the back, CT abd negative for acute pathology, prostate MRI without signs of abcess, RUQ US unremarkable for hepato-biliary pathology . Abx stopped and leukocytosis started to improve. Symptoms also improving.
CUltures remain neg. Hematology sent leukemia/lymphoma w/u that can be followed as outpatient. Urology will plan to follow outpatient too, will later decide if repeated cystoscopy needed. Patient advised to have CBC and LFT done in 1 week upon d/c
with PCP, with possible neuropatic pain - get referral to neurologist from PCP - he verbalized understanding of the instructions. SInce improved - medically stabel to be d/c home
I have spent at least 51min reviewing chart, test results, communication with consulthants and providing direct patient care
Patient was managed for:
#UTI, cystitis, cannot exclude prostatitis
#Hematuria
#Constipation
#Elevated alk.phos
#b/l LE pain
#Essential HTN
#HLD
#Accidental Xarelto and allopurinol injestion
Discharge Plan
-
Patient Disposition: Home (Routine Discharge)
Discharge Diagnosis/Procedures: Leukocytoisis
Diet: Regular
Activity: As tolerated
Activity Restrictions/Additional Instructions:
Obbtain referral to neurologist from PCP
Referrals:
Vasquez Toro Jr., MD [Active, Urology] - in less than 1 week
Tal Encarnacion DO [Family Provider, Internal Medicine] - in less than 1 week
Referral Note: repeat CBC and LFT for leukocytosis and elevated Alk.phos follow up
Emmanuel Ann MD [Active, Hematology / Oncology] - in one to two weeks
Prescriptions:
New
phenazopyridine 200 mg Tablet
200 mg PO BID Qty: 10 0RF
gabapentin 100 mg Capsule
100 mg PO TID Qty: 90 0RF
Continued
celecoxib 200 mg capsule
200 mg PO BID
amlodipine 5 mg tablet
5 mg PO
finasteride 5 mg tablet
5 mg PO
Rx Instructions:
currently on hold per patient
rosuvastatin 5 mg tablet
5 mg PO DAILY
Rx Instructions:
hasn't started yet, newly prescribed
Discharge Orders:
Discharge Patient (As Directed); Ordered 08/19/25
Ordered By: Laron Ramey
Discharge Date and Time
Print Language: IRAQI
--- NOTE | 2025-08-19 11:58 | CM ---
MD ordered discharge.
Spoke with pt his drove him home .
Offered VN he declined .
IMM reviewed pt agreed with dc today.
PLAN Home no needs
[2025-08-20 07:41] LABS: Source Blood
== END 2025-08-19 11:33 | disposition home or self-care (01) | DRG 815 ==
LOC: 4 WEST ACU 19:44
PROVIDERS: Emergency Medicine; Hospitalist; Nurse Practitioner Acute Care; Nurse Practitioner Gerontology; ADMITTING PHYSICIAN Internal Medicine; ATTENDING PHYSICIAN Internal Medicine; CONSULT PHYSICIAN Specialist; EMERGENCY PHYSICIAN Emergency Medicine; FAMILY PHYSICIAN Internal Medicine; OTHER PHYSICIAN Internal Medicine Hematology & Oncology; OTHER PHYSICIAN Student in an Organized Health Care Education/Training Program
DX: D72.829 Elevated white blood cell count, unspecified (principal); N39.0 Urinary tract infection, site not specified; R79.89 Other specified abnormal findings of blood chemistry; M79.604 Pain in right leg; M79.605 Pain in left leg; I10 Essential (primary) hypertension; R61 Generalized hyperhidrosis; K86.9 Disease of pancreas, unspecified; R26.2 Difficulty in walking, not elsewhere classified; K59.00 Constipation, unspecified; R70.0 Elevated erythrocyte sedimentation rate; K82.8 Other specified diseases of gallbladder; R16.0 Hepatomegaly, not elsewhere classified; M43.16 Spondylolisthesis, lumbar region; R53.1 Weakness; R74.8 Abnormal levels of other serum enzymes; R31.9 Hematuria, unspecified; N41.9 Inflammatory disease of prostate, unspecified; D75.839 Thrombocytosis, unspecified; M79.10 Myalgia, unspecified site; N40.3 Nodular prostate with lower urinary tract symptoms; T45.511A Poisoning by anticoagulants, accidental (unintentional), initial encounter; T50.4X1A Poisoning by drugs affecting uric acid metabolism, accidental (unintentional), initial encounter; Y92.230 Patient room in hospital as the place of occurrence of the external cause; Z90.79 Acquired absence of other genital organ(s); Z87.891 Personal history of nicotine dependence; Z82.49 Family history of ischemic heart disease and other diseases of the circulatory system
CPT/HCPCS: 71046; 72158; 72197; 74022; 76700; 76770; 76870; 80048; 80053; 80076; 81003; 81015; 81206; 81207; 81208; 81270; 82085; 82550; 82728; 82977; 83735; 84145; 85025; 85027; 85652; 86038; 86140; 86200; 86430; 86480; 87040; 87086; 87491; 87591; 93306; 93976; 96374; 96375; 97116; 97162; 97165; 99284; A9575

== ENCOUNTER → 2025-08-24 12:00 | Outpatient (REF) | payer MEDICARE, OTHER, SELFPAY ==
[2025-08-24 13:04] LABS: Hematocrit 30.5 % (39.0-52.0); Hemoglobin 9.5 g/dL (13.0-18.0); Mean Corp Hgb Conc. 31.1 g/dL (33.0-37.0); Mean Corpuscular Volume 89.4 fL (80.0-94.0); Nucleated Red Blood Cells % 0 % (-); Platelet Count 458 10^3/uL (130-400); Red Cell Dist. Width 13.8 % (11.5-14.5)
[2025-08-24 14:45] LABS: C-Reactive Protein 256.10 mg/L (0.0-10.00)
[2025-08-24 14:49] LABS: Ferritin 998.0 ng/ml (17.9-464.0)
[2025-08-24 16:07] LABS: ALT (SGPT) 33 U/L (0-50); AST (SGOT) 31 U/L (17-59); Albumin 2.9 g/dl (3.5-5.0); Alkaline Phosphatase 154 U/L (38-126); Blood Urea Nitrogen 19 mg/dl (9-20); Calcium 8.7 mg/dl (8.4-10.2); Carbon Dioxide 26 mmol/L (22-30); Chloride 100 mmol/L (98-107); Glucose 150 mg/dl (70-99); Potassium 5.2 mmol/L (3.5-5.1); Sodium 133 mmol/L (135-145); Total Protein 6.8 g/dl (6.3-8.2); eGFR > 60.00
== END ==
LOC: REG 12:00
PROVIDERS: ATTENDING PHYSICIAN Internal Medicine
DX: D72.825 Bandemia (principal); K76.0 Fatty (change of) liver, not elsewhere classified
CPT/HCPCS: 36415; 80053; 82728; 85025; 85652; 86140

== ENCOUNTER 2025-08-30 12:18 | Inpatient (IN) | payer MEDICARE, OTHER, SELFPAY ==
--- NOTE | 2025-08-26 10:45 | PTCARENOTE ---
Abnormal labs on 1105: hemoglobin 9.5, WBC's 20.1. . Vaishnavi at Dr. Toro's office made aware.
--- NOTE | 2025-08-26 14:49 | PTCARENOTE ---
Abnormal Hemoglobin 9.5 and WBC 20.1 on 08/24/25. Dr. Magana aware. No intervention needed.
[2025-08-30] VITALS (12 sets, daily range): BP systolic 113–142; BP diastolic 56–67; BMI 26.9
[2025-08-30] MEDS: NORMOSOL-R/PLASMALYTE-A 1000 IV (09:49)
--- NOTE | 2025-08-30 12:01 | W.PN.ADMIT ---
Progress Note - Admit
Progress Note - Admit
pt s/p re-do TURP
no abnl findings, no evid of abscess
admit for cbi
[2025-08-30] MEDS: DILAUDID 0.25 MG IV ×3 (12:08→12:33)
[2025-08-30 12:44] LABS: Hematocrit 26.8 % (39.0-52.0); Hemoglobin 8.6 g/dL (13.0-18.0); Mean Corp Hgb Conc. 32.1 g/dL (33.0-37.0); Mean Corpuscular Volume 85.6 fL (80.0-94.0); Platelet Count 414 10^3/uL (130-400); Red Cell Dist. Width 14.1 % (11.5-14.5)
[2025-08-30 13:40] LABS: ALT (SGPT) 46 U/L (0-50); AST (SGOT) 49 U/L (17-59); Albumin 2.6 g/dl (3.5-5.0); Alkaline Phosphatase 147 U/L (38-126); Blood Urea Nitrogen 16 mg/dl (9-20); Calcium 7.9 mg/dl (8.4-10.2); Carbon Dioxide 27 mmol/L (22-30); Chloride 101 mmol/L (98-107); Estimated Creatinine Clearance 93 ml/min; Glucose 131 mg/dl (70-99); Potassium 5.4 mmol/L (3.5-5.1); Sodium 131 mmol/L (135-145); Total Protein 6.1 g/dl (6.3-8.2); eGFR > 60.00
--- NOTE | 2025-08-30 14:08 | PTCARENOTE ---
Addendum entered by Tatyana Rendon RN 08/30/25 17:08:
Urinary catheter traction removed at 1700 as per order.
Original Note:
Received patient around 1325 via bed in stable condition. CBI infusing in 3 way catheter to traction. Catheter draining light clear yellow urine. Patient oriented to room. Call monzon in reach.
[2025-08-30] MEDS: NSS 1000 IV (14:21)
[2025-08-30] MEDS: EMLA CREAM 2 GRAM TOPICAL (15:15)
[2025-08-30] MEDS: LASIX 30 MG IV (15:16)
[2025-08-30] MEDS: COLACE 100 MG PO (19:36)
[2025-08-30] MEDS: TYLENOL 325 MG PO (19:42)
[2025-08-31] MEDS: NSS 1000 IV (02:03)
[2025-08-31 03:06] VITALS: BP 128/66
[2025-08-31 07:04] LABS: Hematocrit 27.4 % (39.0-52.0); Hemoglobin 8.5 g/dL (13.0-18.0); Mean Corp Hgb Conc. 31.0 g/dL (33.0-37.0); Mean Corpuscular Volume 89.5 fL (80.0-94.0); Platelet Count 430 10^3/uL (130-400); Red Cell Dist. Width 13.9 % (11.5-14.5)
--- NOTE | 2025-08-31 07:23 | W.PN.URO.CBU ---
Today's Communication / Plan
-
routine post op care
Assessment / Plan
-
s/p TURP with post op leukocytosis and fatigue/muscle aches of unkown etiology
performed redo TURP yesterday to r/o prostate abscess- no evid of this
pt feeling good today- ? if med effect
urine clearing
plan
wean CBI
UOOB/regular diet
trend wbc/hgb and na level
plan for TOV tomorrow
etiology of sx's still unclear at this juncture
Diagnosis
-
Date of Service: August 31, 2025
-
Patient Diagnosis:
BPH
leukocytosis and fatigue
Post Op Day:
redo TURP 08/30
Subjective
-
pt feels good this am
did not take any pm meds- says he thinks this helped
urine clear
no fevers
wbc stable/down
mild hyponatremia post op- given lasix- recheck pending
Objective
-
Vital Signs
Temp Pulse Resp BP Pulse Ox
97.4 F 72 17 128/66 96
08/31/25 03:06 08/31/25 03:06 08/31/25 03:06 08/31/25 03:06 08/31/25 03:06
Intake and Output
08/30/25 08/31/25 09/01/25
06:59 06:59 06:59
Intake Total 1320 / 1320
Output Total 1600 / 1600
Balance -280 / -280
Intake:
Oral fluids 360 / 360
IV fluids (Total) 960 / 960
Output:
True Urine Output from CBI 1600 / 1600
Laboratory Results
08/31/25 06:43
Review of Systems
-
Constitutional: Fatigue
Respiratory: No Symptoms
Cardiac: No Symptoms
Abdomen/GI: No Symptoms
Physical Exam
-
General - no acute distress
Abdomen - soft, non-tender
Genitalia - gee in place
[2025-08-31 07:35] VITALS: BP 133/58
[2025-08-31 07:37] LABS: ALT (SGPT) 41 U/L (0-50); AST (SGOT) 34 U/L (17-59); Albumin 2.6 g/dl (3.5-5.0); Alkaline Phosphatase 132 U/L (38-126); Blood Urea Nitrogen 20 mg/dl (9-20); Calcium 8.2 mg/dl (8.4-10.2); Carbon Dioxide 25 mmol/L (22-30); Chloride 102 mmol/L (98-107); Estimated Creatinine Clearance 106 ml/min; Glucose 144 mg/dl (70-99); Potassium 4.7 mmol/L (3.5-5.1); Sodium 135 mmol/L (135-145); Total Protein 6.1 g/dl (6.3-8.2); eGFR > 60.00
[2025-08-31] MEDS: LEVAQUIN 500 MG PO (08:18)
[2025-08-31] MEDS: COLACE 100 MG PO ×2 (08:18→20:19)
[2025-08-31] MEDS: TYLENOL 325 MG PO (08:37)
[2025-08-31 11:20] VITALS: BP 118/68
[2025-08-31 15:10] VITALS: BP 131/54
--- NOTE | 2025-08-31 15:18 | CM ---
CM met with Buddy who resides with his spouse and his mother in law in a ranch style home with 3 entry steps.
Patient reports being independent in ambulation and adls; no DME or history of SNF in the past.
Admitted due to urinary symptoms, fatigue and muscle aches. TURP 'redo' done yesterday with no evidence of prostate abscess.
Plan: Pt to return home when medically cleared with no identified discharge planning needs. He will follow up with Urology as an outpatient.
PCP: Tal Encarnacion
Pharmacy: [facility] on [facility] in [place]
[2025-08-31] MEDS: EMLA CREAM 2 GRAM TOPICAL (16:35)
[2025-08-31 23:18] VITALS: BP 135/64
[2025-09-01 06:47] LABS: Hematocrit 26.7 % (39.0-52.0); Hemoglobin 8.2 g/dL (13.0-18.0); Mean Corp Hgb Conc. 30.7 g/dL (33.0-37.0); Mean Corpuscular Volume 89.0 fL (80.0-94.0); Platelet Count 424 10^3/uL (130-400); Red Cell Dist. Width 14.0 % (11.5-14.5)
--- NOTE | 2025-09-01 07:02 | W.PN.URO.CBU ---
Today's Communication / Plan
-
gee out for TOV and potential discharge
Assessment / Plan
-
s/p TURP with post op leukocytosis and fatigue/muscle aches of unkown etiology
performed redo TURP yesterday to r/o prostate abscess- no evid of this
ucx negative
gee out today for TOV and likely discharge
will finish course of levaquin- but at this time no gu evid of source of sx's
Diagnosis
-
Date of Service: September 01, 2025
-
Patient Diagnosis:
BPH
leukocytosis and fatigue
Post Op Day:
redo TURP 08/30
Subjective
-
pt feels ok
urine yellow
no fevers
labs stable
ucx negative
Objective
-
Vital Signs
Temp Pulse Resp BP Pulse Ox
97.8 F 77 17 135/64 93
08/31/25 23:18 08/31/25 23:18 08/31/25 23:18 08/31/25 23:18 08/31/25 23:18
Intake and Output
08/31/25 09/01/25 09/02/25
06:59 06:59 06:59
Intake Total 1320 / 1320 960 / 960
Output Total 1600 / 1600 50 / 50
Balance -280 / -280 910 / 910
Intake:
Oral fluids 360 / 360 960 / 960
IV fluids (Total) 960 / 960
Output:
True Urine Output from CBI 1600 / 1600 50 / 50
Laboratory Results
09/01/25 06:08
Review of Systems
-
Constitutional: Fatigue
Respiratory: No Symptoms
Cardiac: No Symptoms
Abdomen/GI: No Symptoms
Physical Exam
-
General - no acute distress
Abdomen - soft, non-tender
Genitalia - normal- gee removed
Rectal - normal
Skin - warm & dry with no rash
Neuro - AOx3, no motor deficits
Extremities - no clubbing, no cyanosis, no edema
[2025-09-01 07:03] LABS: Blood Urea Nitrogen 22 mg/dl (9-20); Calcium 8.0 mg/dl (8.4-10.2); Carbon Dioxide 27 mmol/L (22-30); Chloride 101 mmol/L (98-107); Estimated Creatinine Clearance 93 ml/min; Glucose 127 mg/dl (70-99); Potassium 4.5 mmol/L (3.5-5.1); Sodium 131 mmol/L (135-145); eGFR > 60.00
[2025-09-01 07:30] VITALS: BP 118/71
[2025-09-01] MEDS: COLACE 100 MG PO (08:59)
[2025-09-01] MEDS: LEVAQUIN PO (09:00)
--- NOTE | 2025-09-01 13:08 | CM ---
Initial assessment completed with patient who lives with his and [id number] in a 1 story plus basement home with 3 steps to enter. [employer] patient was independent in ADL's and ambulation, drives. No DME. No in-home services. No HC-POA. No VA
benefits. No psychiatric hospitalizations. PCP is Dr. Tal Encarnacion. Pharmacy is [facility] on [address] [facility] in [place]. Discharge POC: Anticipate home with no needs. Benitez out and voiding trial. Possible discharge later today.
[2025-09-01 14:14] VITALS: BP 140/69
--- NOTE | 2025-09-01 14:47 | CM ---
Patient has been medically cleared for discharge to home with no additional skilled services. Patient arranged for transport home.
== END 2025-09-01 14:36 | disposition home or self-care (01) | DRG 714 ==
LOC: 2 SOUTH 12:18
PROVIDERS: ADMITTING PHYSICIAN Specialist
PROC: 0VT08ZZ Resection of Prostate, Via Natural or Artificial Opening Endoscopic (ICD-10-PCS; 2025-08-30)
DX: N40.0 Benign prostatic hyperplasia without lower urinary tract symptoms (principal)
CPT/HCPCS: 80048; 80053; 85027; 87086; 88305; J1580

== ENCOUNTER → 2025-09-07 11:08 | Outpatient (REF) | payer MEDICARE, OTHER, SELFPAY ==
[2025-09-07 12:20] LABS: Hematocrit 28.6 % (39.0-52.0); Hemoglobin 9.0 g/dL (13.0-18.0); Mean Corp Hgb Conc. 31.5 g/dL (33.0-37.0); Mean Corpuscular Volume 85.1 fL (80.0-94.0); Nucleated Red Blood Cells % 0 % (-); Platelet Count 396 10^3/uL (130-400); Red Cell Dist. Width 14.1 % (11.5-14.5)
[2025-09-07 13:29] LABS: ALT (SGPT) 37 U/L (0-50); AST (SGOT) 30 U/L (17-59); Albumin 3.2 g/dl (3.5-5.0); Alkaline Phosphatase 136 U/L (38-126); Blood Urea Nitrogen 19 mg/dl (9-20); Calcium 8.6 mg/dl (8.4-10.2); Carbon Dioxide 25 mmol/L (22-30); Chloride 97 mmol/L (98-107); Glucose 200 mg/dl (70-99); Potassium 4.3 mmol/L (3.5-5.1); Sodium 132 mmol/L (135-145); Total Protein 7.1 g/dl (6.3-8.2); eGFR > 60.00
== END ==
LOC: REG 11:08
PROVIDERS: ATTENDING PHYSICIAN Internal Medicine
DX: D72.829 Elevated white blood cell count, unspecified (principal)
CPT/HCPCS: 36415; 80053; 85025

== ENCOUNTER → 2025-09-12 07:26 | Outpatient (REF) | payer MEDICARE, OTHER, SELFPAY | LOC: RAD 07:26 | PROVIDERS: ATTENDING PHYSICIAN Internal Medicine | DX: G44.52 New daily persistent headache (NDPH) (principal); R06.02 Shortness of breath; R63.4 Abnormal weight loss | CPT/HCPCS: 70450; 71260; 74177; Q9967 ==

== ENCOUNTER → 2025-09-19 12:57 | Outpatient (REF) | payer MEDICARE, OTHER, SELFPAY ==
[2025-09-19 13:52] LABS: Hematocrit 29.9 % (39.0-52.0); Hemoglobin 8.7 g/dL (13.0-18.0); Mean Corp Hgb Conc. 29.1 g/dL (33.0-37.0); Mean Corpuscular Volume 85.4 fL (80.0-94.0); Nucleated Red Blood Cells % 0 % (-); Platelet Count 345 10^3/uL (130-400); Red Cell Dist. Width 14.6 % (11.5-14.5)
[2025-09-19 14:23] LABS: ALT (SGPT) 20 U/L (0-50); AST (SGOT) 16 U/L (17-59); Albumin 3.3 g/dl (3.5-5.0); Alkaline Phosphatase 109 U/L (38-126); Blood Urea Nitrogen 17 mg/dl (9-20); Calcium 8.6 mg/dl (8.4-10.2); Carbon Dioxide 28 mmol/L (22-30); Chloride 100 mmol/L (98-107); Glucose 119 mg/dl (70-99); Potassium 4.4 mmol/L (3.5-5.1); Sodium 134 mmol/L (135-145); Total Protein 7.2 g/dl (6.3-8.2); eGFR > 60.00
== END ==
LOC: REG 12:57
PROVIDERS: ATTENDING PHYSICIAN Internal Medicine
DX: D72.829 Elevated white blood cell count, unspecified (principal)
CPT/HCPCS: 36415; 80053; 85025

== ENCOUNTER → 2025-09-30 12:16 | Outpatient (REF) | payer MEDICARE, OTHER, SELFPAY ==
[2025-09-30 13:12] LABS: Hematocrit 30.6 % (39.0-52.0); Hemoglobin 9.1 g/dL (13.0-18.0); Mean Corp Hgb Conc. 29.7 g/dL (33.0-37.0); Mean Corpuscular Volume 81.0 fL (80.0-94.0); Nucleated Red Blood Cells % 0 % (-); Platelet Count 310 10^3/uL (130-400); Red Cell Dist. Width 15.4 % (11.5-14.5)
[2025-09-30 13:39] LABS: ALT (SGPT) 11 U/L (0-50); AST (SGOT) 14 U/L (17-59); Albumin 3.3 g/dl (3.5-5.0); Alkaline Phosphatase 95 U/L (38-126); Blood Urea Nitrogen 17 mg/dl (9-20); Calcium 8.6 mg/dl (8.4-10.2); Carbon Dioxide 27 mmol/L (22-30); Chloride 103 mmol/L (98-107); Glucose 106 mg/dl (70-99); Potassium 4.7 mmol/L (3.5-5.1); Sodium 135 mmol/L (135-145); Total Protein 7.0 g/dl (6.3-8.2); eGFR > 60.00
== END ==
LOC: REG 12:16
PROVIDERS: ATTENDING PHYSICIAN Internal Medicine
DX: D72.829 Elevated white blood cell count, unspecified (principal)
CPT/HCPCS: 36415; 80053; 85025